=== PATIENT | female | born 1945 | race Caucasian/White ===

== ENCOUNTER → 2016-10-19 | Outpatient (CLI) | payer MEDICARE, MEDICAID ==
[2016-07-07 20:00] VITALS: BP 128/65
[~2016-10-19] MED LIST: ACET325T21 PO; ALPR0.5T6 PO; AMIO200T PO; AMOX1TAB61 PO; APIX5TAB PO; ASPI-482 PO; ASPI325T4 PO; ATOR10TA PO; ATROVENT HFA12.9 GM IH; CAPS42.56 TP; CARV12.52 PO; DILT120C97 PO; DOCU-27 PO; Diltiazem Hcl PO; Doxycycline Hyclate PO; FEBU40TA PO; FLUO40CA2 PO; FLUT1DIS3 IH; FLUT1DIS3 INH; FURO-69 PO; GABA-586 PO; HYDR-963 PO; IRBE75TA3 PO; LEVO250T25 PO; NITR100C62 PO; POTA20TA4 PO; ZOLP5TAB4 PO
[2016-10-19 12:50] LABS: BILIRUBIN,URINE NEGATIVE (NEG); GLUCOSE,URINE NEGATIVE (NEG); NITRITE,URINE NEGATIVE (NEG); PH,URINE 7.5; PROTEIN,URINE NEGATIVE (NEG-TRACE); UROBILINOGEN,URINE 0.2 mg/dL (0.2 mg/dL)
[2016-10-19 13:03] LABS: BACTERIA,URINE FEW /HPF (0-FEW); RBC,URINE 0 /HPF (0-2); SQUAMOUS EPITHELIAL CELL,UR OCC /LPF
== END | disposition home or self-care (01) ==
LOC: SPEC 12:03
PROVIDERS: ATTEND Family Medicine
DX: N39.0 Urinary tract infection, site not specified (principal)
CPT/HCPCS: 81001; 87086; 87186

== ENCOUNTER 2016-11-17 04:44 | Inpatient (IN) | payer MEDICARE, OTHER ==
[~2016-11-17] VITALS: Ht 167.6 cm; Wt 74.9 kg
[2016-11-17] VITALS (16 sets, daily range): BP systolic 85–165; BP diastolic 46–79
[2016-11-17] MEDS ORDERED: IV NORMAL SALINE 1000ML BAG 1,000 ML IV SCH (05:09)
[2016-11-17 05:21] LABS: BASO # 0.2 x10^3/uL (0.0-0.2); BASO % 1 % (0-3); EOS % 0 % (0-3); HEMATOCRIT 41.2 % (36.0-47.0); HEMOGLOBIN 12.9 g/dL (12.0-15.5); LYMPH # 1.2 x10^3/uL (1.0-4.8); LYMPH % 5 % (24-48); MEAN CORPUSCULAR HEMOGLOBIN 26 pg (25-35); MEAN CORPUSCULAR HGB CONC 31 g/dL (31-37); MEAN CORPUSCULAR VOLUME 84 fL (79-100); MONO % 8 % (0-9); NEUT % 86 % (31-73); PLATELET COUNT 278 x10^3/uL (140-400); RED BLOOD COUNT 4.94 x10^6/uL (3.50-5.40); RED CELL DISTRIBUTION WIDTH 16.5 % (11.5-14.5)
--- NOTE | 2016-11-17 05:22 | PHYS DOC ---
Past Medical History Past Medical History: A-Fib, Anemia, Anxiety, Arrhythmia, CAD, CHF, COPD, Dementia, Depression, High Cholesterol, Hypertension Additional Past Medical Histor: acute and chronic resp failure with hypoxia, weakness, pressure ulcer Past Surgical History: Appendectomy, Pacemaker, Other Additional Past Surgical Histo: cardiac stents, pacemaker/defibrillator Alcohol Use: None Drug Use: None Adult General Chief Complaint Chief Complaint: SHORTNESS OF BREATH HPI HPI Patient is a 71 year old female who presents with shortness of breath and productive cough for 2 days. Patient comes to the emergency department from [facility] due to worsening condition. Patient appears lethargic at this time and does not provide history. Patient has multiple comorbidities including CHF, CVA, and COPD. Patient has reported productive cough from long term and has had worsening shortness of breath. Patient had reported oxygen saturation of 91-92% on her normal oxygen settings. Patient denies any pain. Patient was given a DuoNeb breathing treatment by EMS prior to arrival. Review of Systems Review of Systems Unable to obtain from patient due to altered state Current Medications Current Medications Current Medications Medications (Trade) Dose Ordered Sig/Carrie Start Time Stop Time Status Last Admin Dose Admin Sodium Chloride (Iv Sodium Chloride 0.9% 1000ml Bag) 1,000 ml @ 615 mls/hr [id number] 11/17/16 05:09 11/17/16 09:08 11/17/16 05:22 615 MLS/HR Allergies Allergies Allergies Coded Allergies Type Severity Reaction Last Updated Verified NSAIDS (Non-Steroidal Anti-Inflamma Allergy Intermediate 11/06/15 Yes haloperidol Allergy Intermediate 11/06/15 Yes Physical Exam Physical Exam Constitutional: Lethargic, afebrile, appears ill HENT: Normocephalic, atraumatic, bilateral external ears normal, oropharynx dry , no oral exudates, nose normal. [] Eyes: PERRLA, EOMI, conjunctiva normal, no discharge. [] Neck: Normal range of motion, no tenderness, supple, no stridor. [] Cardiovascular: Tachycardia, irregular rhythm, no murmur [] Lungs & Thorax: Mild to moderate shortness of air movement bilaterally, mild expiratory wheezes bilaterally, rales bilaterally [] Abdomen: Bowel sounds normal, soft, no tenderness, no masses, no pulsatile masses. [] Skin: Warm, dry, no erythema, no rash. [] Back: No tenderness, no CVA tenderness. [] Extremities: No tenderness, no cyanosis, no clubbing, ROM intact, trace pitting edema bilaterally. [] Neurologic: Lethargic, oriented to self, normal motor function, normal sensory function, no focal deficits noted. [] Current Patient Data Vital Signs Vital Signs Date Time Temp Pulse Resp B/P Pulse Ox O2 Delivery O2 Flow Rate FiO2 11/17/16 05:05 99.4 118 20 102/67 92 Nasal Cannula 2 99.4 Lab Values Laboratory Tests Test 11/17/16 04:54 11/17/16 05:08 11/17/16 05:25 Influenza Type A Antigen Negative (NEGATIVE) Influenza Type B Antigen Negative (NEGATIVE) White Blood Count 23.0x10^3/uL (4.0-11.0) H Red Blood Count 4.94x10^6/uL (3.50-5.40) Hemoglobin 12.9g/dL (12.0-15.5) Hematocrit 41.2% (36.0-47.0) Mean Corpuscular Volume 84fL (79-100) Mean Corpuscular Hemoglobin 26pg (25-35) Mean Corpuscular Hemoglobin Concent 31g/dL (31-37) Red Cell Distribution Width 16.5% (11.5-14.5) H Platelet Count 278x10^3/uL (140-400) Neutrophils (%) (Auto) 86% (31-73) H Lymphocytes (%) (Auto) 5% (24-48) L Monocytes (%) (Auto) 8% (0-9) Eosinophils (%) (Auto) 0% (0-3) Basophils (%) (Auto) 1% (0-3) Neutrophils # (Auto) 19.9x10^3uL (1.8-7.7) H Lymphocytes # (Auto) 1.2x10^3/uL (1.0-4.8) Monocytes # (Auto) 1.8x10^3/uL (0.0-1.1) H Eosinophils # (Auto) 0.0x10^3/uL (0.0-0.7) Basophils # (Auto) 0.2x10^3/uL (0.0-0.2) Platelet Estimate Pending Sodium Level 145mmol/L (136-145) Potassium Level 6.2mmol/L (3.5-5.1) *H Chloride Level 104mmol/L (98-107) Carbon Dioxide Level 33mmol/L (21-32) H Anion Gap 8 (6-14) Blood Urea Nitrogen 42mg/dL (7-20) H Creatinine 2.3mg/dL (0.6-1.0) H Estimated GFR (Cockcroft-Gault) 20.8 BUN/Creatinine Ratio 18 (6-20) Glucose Level 124mg/dL (70-99) H Lactic Acid Level 1.1mmol/L (0.4-2.0) Calcium Level 8.9mg/dL (8.5-10.1) Total Bilirubin 1.5mg/dL (0.2-1.0) H Aspartate Amino Transferase (AST) 44U/L (15-37) H Alanine Aminotransferase (ALT) 29U/L (14-59) Alkaline Phosphatase 117U/L (46-116) H Troponin I Quantitative 4.627ng/mL (0.000-0.055) Total Protein 6.8g/dL (6.4-8.2) Albumin 3.1g/dL (3.4-5.0) L Albumin/Globulin Ratio 0.8 (1.0-1.7) L Procalcitonin Pending O2 Saturation 91% (92-99) L Arterial Blood pH 7.42 (7.35-7.45) Arterial Blood pH (Temp corrected) 7.41 Arterial Blood pCO2 at Patient Temp 49mmHg (35-46) H Arterial Blood pCO2 (Temp correct) 50mmHg Arterial Blood pO2 at Patient Temp 62mmHg (65-108) L Arterial Blood pO2 (Temp corrected) 64mmHg Arterial Blood HCO3 31mmol/L (21-28) H Arterial Blood Base Excess 5mmol/L (-3-3) H FiO2 32 Laboratory Tests 11/17/16 05:08 Laboratory Tests 11/17/16 05:08 EKG EKG Interpreted by me: Heart rate 130, atrial fibrillation, rapid ventricular rate, no acute ST/T-wave abnormalities present [] Radiology/Procedures Radiology/Procedures One view AP chest x-ray interpreted by me: Left lower lobe infiltrate, possible left-sided pleural effusion, cardiomegaly [] Course & Med Decision Making Course & Med Decision Making Pertinent Labs and Imaging studies reviewed. (See chart for details) Patient was started on IV fluids in the emergency department. Patient required increased supplemental oxygen to help keep her oxygen saturations above 90%. This patient is displaying multi-system organ failure at this time. Prognosis is poor. I spoke with Dr. Mckenzie who is on-call for Dr. Herndon. He agreed with initiation of IV antibiotics and IV fluids. I also consulted Dr. Fuentes of cardiology. He agreed with conservative measures and will see patient this morning in hospital. Patient admitted to ICU. Dragon Disclaimer Dragon Disclaimer This electronic medical record was generated, in whole or in part, using a voice recognition dictation system. Departure Departure Impression: Primary Impression: Sepsis Additional Impressions: Healthcare-associated pneumonia Acute on chronic renal failure Myocardial ischemia Hyperkalemia Mild protein malnutrition Atrial fibrillation with RVR Dehydration Disposition: ADMITTED INPATIENT Admitting Physician: David Herndon Condition: GRAVE Referrals: DAVID HERNDON MD (PCP) Problem Qualifiers Primary Impression: Sepsis Sepsis type: sepsis due to unspecified organism Qualified Code: A41.9 - Sepsis, unspecified organism ZULEIMA JACOB MD Nov 17, 2016 05:22
[2016-11-17 05:31] LABS: FIO2 ABG 32; HCO3 ABG 31 mmol/L (21-28); PCO2 ABG 49 mmHg (35-46); PH ABG 7.42 (7.35-7.45); PO2 ABG 62 mmHg (65-108); SAT O2 ABG 91 % (92-99)
[2016-11-17 05:32] LABS: BODY TEMP ABG 98.6 DEG; CORRECTED PCO2 ABG 50 mmHg; CORRECTED PH ABG 7.41; CORRECTED PO2 ABG 64 mmHg
[2016-11-17 05:45] LABS: ALBUMIN 3.1 g/dL (3.4-5.0); ALBUMIN/GLOBULIN RATIO 0.8 (1.0-1.7); CALCIUM 8.9 mg/dL (8.5-10.1); CREATININE 2.3 mg/dL (0.6-1.0); GFR 20.8; TOTAL BILIRUBIN 1.5 mg/dL (0.2-1.0); TOTAL PROTEIN 6.8 g/dL (6.4-8.2)
[2016-11-17 05:47] LABS: POTASSIUM 6.2 mmol/L (3.5-5.1)
[2016-11-17 05:50] LABS: OBC FLU VALID
[2016-11-17] MEDS: IV NORMAL SALINE 1000ML BAG 1,000 ML IV SCH ×3 (06:12→20:34)
[2016-11-17] MEDS ORDERED: PIP/TAZO PER PHARMACY MC PRN (06:15)
[2016-11-17] MEDS ORDERED: ONDANSETRON PF 4 MG/2 ML VIAL. IV PRN (06:15)
[2016-11-17] MEDS ORDERED: LEVOFLOXACIN PER PHARMACY MC PRN (06:15)
[2016-11-17] MEDS ORDERED: ACETAMINOPHEN 325 MG TABLET. PO PRN (06:15)
[2016-11-17] MEDS ORDERED: VANCOMYCIN PER PHARMACY MC PRN (06:15)
[2016-11-17] MEDS ORDERED: DEXTROSE 50% 25 GM / 50ML DISP.SYRIN. IV ONE (06:30)
[2016-11-17] MEDS ORDERED: SODIUM BICARB ADULT 8.4% 50 MEQ/50 ML DISP.SYRIN. IV ONE (06:30)
[2016-11-17] MEDS ORDERED: PIPERACILLIN/TAZOBACTAM 2.25 GM in IV NORMAL SALINE 50ML 50 ML IV SCH (06:30)
[2016-11-17] MEDS ORDERED: CALCIUM GLUCONATE 1,000 MG/10 ML VIAL IVP ONE (06:30)
[2016-11-17] MEDS ORDERED: SODIUM POLYSTYRENE SULFONATE 15 GM/60 ML ORAL.SUSP. PO ONE (06:30)
[2016-11-17] MEDS ORDERED: INSULIN REGULAR 100 UNIT/ML 10ML VIAL. IV ONE (06:30)
--- NOTE | 2016-11-17 06:44 | EKG ---
[facility] [address] [place] [address] Test Date: 2016-11-17 Test Time: 04:52:37 Pat Name: ZACHERY MAGALLANES Department: Room: Gender: F Manager Ent: : [id number] Requested By: ZULEIMA JACOB Order Number: [id number] Reading MD: Galina Chatman Measurements Intervals [place] Rate: 130 P: UT: QRS: -51 QRSD: 150 T: 116 QT: 336 QTc: 501 Interpretive Statements ATRIAL FIBRILLATION PROLONGED QT INTERVAL ABNORMAL LEFT AXIS DEVIATION NON SPECIFIC INTRAVENTRICULAR BLOCK Electronically Signed On 11-21-2016 19:41:10 [employer]HER [employer] MIXER by Galina Chatman
[2016-11-17] MEDS ORDERED: VANCOMYCIN 2 GM in IV NORMAL SALINE 500ML BAG 500 ML IV ONE (07:00)
[2016-11-17 07:13] LABS: PROCALCITONIN 14.79 ng/mL (0.00-0.10)
--- NOTE | 2016-11-17 07:13 | RAD ---
Portable chest, 11/17/2016: History: Shortness of breath Comparison is made to a study from 09/25/2016. A left-sided transvenous pacing device remains in place with 2 leads extending in the right heart. The heart is enlarged. There is calcific plaquing of the aorta. The pulmonary vascularity is prominent with loss of vascular margination right upper chest. There is a linear scar in the left lower chest. Blunting of the left lateral costophrenic angle is probably due to a prominent epicardial fat pad accentuated by patient rotation, although a small amount of pleural fluid cannot be excluded. No right-sided pleural fluid is evident. IMPRESSION: Cardiomegaly with mild vascular congestion.
--- NOTE | 2016-11-17 07:21 | ACF ---
Admit Criteria Forms Admit Criteria Forms Admit Criteria Forms SEPSIS and OTHER FEBRILE ILLNESS, W/O FOCAL INFECTION Clinical Indications for Admission to Inpatient Care ( Place 'X' for any and all applicable criteria): Admission is indicated for ANY ONE of the following (1)(2)(3)(4): [ ] I. Bacteremia [X]II. Suspected or identified specific infection requiring hospitalization (eg, meningitis, endocarditis) [ ]III. Hemodynamic instability [ ]IV. Altered mental status [ ]V. Failure or unavailability of outpatient antimicrobial treatment [ ]. Hypoxemia [ ]VII. Seizures [ ]VIII. High-risk febrile neutropenia [ ]IX. Need for parenteral antibiotic in patient who is likely to abuse vascular access device (eg, injection drug user) [A](7) [ ]X. Temperature greater than 104.9 degrees F (40.5 degrees C) (oral) [ ]XI. Inpatient admission required rather than observation care because of ANY ONE of the following: [ ]1) Specific infection identified that is too severe for outpatient treatment or observation care trial [ ]2) Metabolic disorder (eg, hypoglycemia, hyperglycemia, metabolic acidosis) that is severe or persistent [ ]3) Temperature greater than 103.1 degrees F (39.5 degrees C) ( oral) that is not responsive to observation care treatment [ ]4) IV fluid to replace significant ongoing (eg, for over 24 hours) losses (> 3 L/m2 per day) [ ]5) Supplemental oxygen or respiratory treatments for over 24 hours that is performable only in acute inpatient setting [ ]6) Parenteral nutrition regimen need that must be implemented on inpatient basis [ ]7) Strict or protective (eg, laminar flow) isolation [ ]8) Other condition, treatment or monitoring requiring inpatient admission Extended stay beyond goal length of stay may be needed for(1)(3) [ ]a) Sepsis or septic shock(22) [ ]b) Positive blood cultures [ ]c) Insufficient oral intake [ ]d) High-risk febrile neutropenia(29)(30) [ ]e) Continued fever and clinical instability [ ]f) Clinically active comorbid illness (e.g,heart failure, renal failure , diabetes) The original [employer] content created by [email or web address] has been revised. The portions of the content which have been revised are identified through the use of italic text or in bold, and [facility] has neither reviewed nor approved the modified material. All other unmodified content is copyright [facility]. Please see references footnoted in the original [facility] edition 2016 CHARISSA ALLISON Nov 17, 2016 07:21
[2016-11-17] MEDS ORDERED: IPRATRPIUM/ALBUTEROL 0.5/2.5MG 3 ML NEBU. NEB SCH (08:00)
--- NOTE | 2016-11-17 08:28 | PDOC ---
Provider Note Provider Note See admission H&P dictation #[id number] Impression: 1. Sepsis due to possible pulmonary infection versus UTI: 2. Acute respiratory failure: 2. Hyperkalemia: 3. Acute renal failure: 4. COPD with probable exacerbation: 5. CHF, acute on chronic: 6. A. fib with RVR: 7. Elevated troponins consistent with probable recent acute [place] KENDRA MANSFIELD MD Nov 17, 2016 08:28
[2016-11-17 08:54] LABS: BILIRUBIN,URINE SMALL (NEG); GLUCOSE,URINE NEGATIVE (NEG); NITRITE,URINE NEGATIVE (NEG); PROTEIN,URINE 100 mg/dL (NEG-TRACE)
[2016-11-17] MEDS: GABAPENTIN 300 MG CAPSULE. PO SCH ×2 (09:00→20:34)
[2016-11-17] MEDS: ASPIRIN ENTERIC COATED 81 MG TABLET.DR. PO SCH (09:00)
[2016-11-17] MEDS: CARVEDILOL 12.5 MG TABLET PO SCH ×2 (09:00→17:00)
[2016-11-17] MEDS: FLUOXETINE HCL 20 MG CAPSULE PO SCH (09:00)
[2016-11-17] MEDS: AMIODARONE HCL 200 MG TABLET PO SCH (09:00)
[2016-11-17] MEDS ORDERED: NON FORMULARY ITEM (Fluticasone/Salmeterol (Advair 250-50 Diskus) 1 INH) IH SCH (09:00)
[2016-11-17] MEDS ORDERED: APIXABAN 5 MG TABLET. PO SCH (09:00)
[2016-11-17] MEDS ORDERED: NON FORMULARY ITEM (Fluoxetine Hcl 40 MG) PO SCH (09:00)
[2016-11-17] MEDS: BUDESONIDE 0.5 MG/2 ML NEBU NEB SCH ×2 (09:10→20:15)
[2016-11-17 09:20] LABS: BACTERIA,URINE MODERATE /HPF (0-FEW); SQUAMOUS EPITHELIAL CELL,UR OCC /LPF; WBC,URINE >40 /HPF (0-4)
[2016-11-17] MEDS ORDERED: MAGNESIUM SULFATE 2GM 50 ML IV PRN (09:30)
--- NOTE | 2016-11-17 09:30 | PDOC2 ---
CONSULT Date of Consult Date of Consult DATE: 11/17/16 TIME: 09:23 Reason for Consult Reason for Consult: Panchito/ CKD III Referring Physician Referring Physician: Dr franklin Identification/Chief Complaint Chief Complaint AMS, UTI Problems: Source Source: Chart review, Patient History of Present Illness Reason for Visit: as dictated Past Medical History Cardiovascular: CAD, CHF, HTN, Hyperlipidemia Pulmonary: COPD CENTRAL NERVOUS SYSTEM: Other GI: Other Psych: Depression Musculoskeletal: Osteoarthritis Infectious disease: No pertinent hx, Other Renal/: No pertinent hx Endocrine: No pertinent hx Past Surgical History Past Surgical History: Appendectomy, Cholecystectomy, Other Family History Family History: Coronary Artery Disease Social History ALCOHOL: none Drugs: None Lives: with Family Domestic Violence: Neg Current Problem List Problem List Problems Medical Problems: (1) Acute on chronic renal failure Status: Acute (2) Atrial fibrillation with RVR Status: Acute (3) Dehydration Status: Acute (4) Healthcare-associated pneumonia Status: Acute (5) Hyperkalemia Status: Acute (6) Mild protein malnutrition Status: Acute (7) Myocardial ischemia Status: Acute (8) Sepsis Status: Acute Current Medications Current Medications Current Medications Sodium Chloride (Iv Sodium Chloride 0.9% 1000ml Bag) 1,000 ml @ 615 mls/hr Q1H38M IV Last administered on 11/17/16 05:22; Start 11/17/16 at 05:09; Stop 11/17/16 at 09:08; Status DC Calcium Gluconate 1,000 mg 1X ONCE IVP Last administered on 11/17/16 06:55; Start 11/17/16 at 06:30; Stop 11/17/16 at 06:31; Status DC Sodium Bicarbonate 50 meq 1X ONCE IV Last administered on 11/17/16 06:56; Start 11/17/16 at 06:30; Stop 11/17/16 at 06:31; Status DC Dextrose 25 gm 1X ONCE IV Last administered on 11/17/16 06:58; Start at 06:30; Stop 11/17/16 at 06:31; Status DC Insulin Human Regular (Novolin R Vial) 10 unit 1X ONCE IV Last administered on 11/17/16 06:57; Start 11/17/16 at 06:30; Stop 11/17/16 at 06:31; Status DC Sodium Polystyrene Sulfonate (Kayexalate) 30 gm 1X ONCE PO Last administered on 11/17/16 06:58; Start 11/17/16 at 06:30; Stop 11/17/16 at 06:31; Status DC Ondansetron HCl 4 mg 4 mg PRN Q8HRS PRN IV NAUSEA/VOMITING; Start 11/17/16 at 06:15; Stop 11/18/16 at 06:14 Sodium Chloride (Iv Sodium Chloride 0.9% 1000ml Bag) 1,000 ml @ 125 mls/hr Q8H IV ; Start 11/17/16 at 06:12; Stop 11/18/16 at 06:11 Acetaminophen (Tylenol) 650 mg PRN Q4HRS PRN PO FEVER; Start 11/17/16 at 06:15 ; Stop 11/17/16 at 08:35; Status DC Albuterol/ Ipratropium (Duoneb) 3 ml RTQID NEB ; Start 11/17/16 at 08:00; Stop 11/17/16 at 08:33; Status DC Vancomycin HCl (Vanco Per Pharmacy) 1 each PRN DAILY PRN MC SEE COMMENTS; Start 11/17/16 at 06:15 Levofloxacin/ Dextrose (Levaquin Per Pharmacy) 1 each PRN DAILY PRN MC SEE COMMENTS; Start 11/17/16 at 06:15 Piperacillin Sod/ Tazobactam Sod 1 each 1 each PRN DAILY PRN MC SEE COMMENTS; Start 11/17/16 at 06:15 Vancomycin HCl 2 gm/Sodium Chloride 500 ml @ 250 mls/hr 1X ONCE IV Last administered on 11/17/16 07:52; Start 11/17/16 at 07:00; Stop 11/17/16 at 09:04 ; Status DC Piperacillin Sod/ Tazobactam Sod 2.25 gm/Sodium Chloride 50 ml @ 100 mls/hr Q6HRS IV Last administered on 11/17/16 07:04; Start 11/17/16 at 06:30 Levofloxacin/ Dextrose (LEVAQUIN 750mg PREMIX) 150 ml @ 100 mls/hr Q48H IV ; Start 11/17/16 at 07:00 Furosemide (Lasix) 40 mg DAILY IVP ; Start 11/17/16 at 09:00 Albuterol/ Ipratropium (Duoneb) 3 ml RTQID NEB ; Start 11/17/16 at 12:00 Albuterol Sulfate (Ventolin Neb Soln) 2.5 mg PRN Q4HRS PRN NEB SHORTNESS OF BREATH; Start 11/17/16 at 08:30 Acetaminophen (Tylenol) 650 mg PRN Q6HRS PRN PO PAIN; Start 11/17/16 at 08:30 Amiodarone HCl (Cordarone) 200 mg DAILY PO ; Start 11/17/16 at 09:00 Apixaban (Eliquis) 5 mg BID PO ; Start 11/17/16 at 09:00 Aspirin (Ecotrin) 81 mg DAILY08 PO ; Start 11/17/16 at 09:00 Carvedilol (Coreg) 12.5 mg BIDWMEALS PO ; Start 11/17/16 at 09:00 Gabapentin (Neurontin) 300 mg BID PO ; Start 11/17/16 at 09:00 Zolpidem Tartrate (Ambien) 5 mg PRN QHS PRN PO INSOMNIA; Start 11/17/16 at 08: 30 Non-Formulary Medication 40 mg DAILY PO ; Start 11/17/16 at 09:00; Stop at 09:00; Status DC Non-Formulary Medication 1 inh BID IH ; Start 11/17/16 at 09:00; Stop 11/17/16 at 09:00; Status DC Fluoxetine HCl (Prozac) 40 mg DAILY PO ; Start 11/17/16 at 09:00 Info (Anti-Coagulation Monitoring By Pharmacy) 1 each PRN DAILY PRN MC SEE COMMENTS; Start 11/17/16 at 08:45 Budesonide 0.5 mg 0.5 mg RTBID NEB Last administered on 11/17/16t 09:10; Start 11/17/16 at 09:00 Vancomycin HCl/ Sodium Chloride (Iv Sodium Chloride 0.9% 250ml) 250 ml @ 167 mls/hr Q24H IV ; Start 11/18/16 at 08:00 Vancomycin HCl 1 each 1X ONCE MC ; Start 11/19/16 at 07:30; Stop 11/19/16 at 07 :31 Active Scripts Active Macrobid 100 Mg Capsule (Nitrofurantoin Monohyd/M-Cryst) 100 Mg Capsule 1 Cap PO BID Klor-Con M20 (Potassium Chloride) 20 Meq Tablet.er 20 Meq PO DAILYWBKFT Uloric (Febuxostat) 40 Mg Tablet 40 Mg PO DAILY Colace (Docusate Sodium) 100 Mg Capsule 100 Mg PO DAILY Eliquis (Apixaban) 5 Mg Tablet 5 Mg PO BID Cordarone (Amiodarone Hcl) 200 Mg Tablet 200 Mg PO DAILY Reported Acetaminophen 325 Mg Tablet 650 Mg PO PRN Q6HRS PRN [place] 10-325 Tablet (Acetaminophen/Hydrocodone Bitart) 1 Each Tablet 1 Tab PO PRN Q6HRS PRN Gabapentin 300 Mg Capsule 300 Mg PO BID Diltiazem 24HR Cd (Diltiazem Hcl) 120 Mg Cap.er.24h 120 Mg PO DAILY Zolpidem Tartrate 5 Mg Tablet 5 Mg PO PRN QHS PRN Alprazolam 0.5 Mg Tablet 0.5 Mg PO PRN Q8HRS PRN Advair 250-50 Diskus (Fluticasone/Salmeterol) 1 Each Disk.w.dev 1 Inh IH BID Capzasin-Hp (Capsaicin) 42.5 Gm Cream..g. 1 Terence TP Q8HRS Aspir 81 (Aspirin) 81 Mg Tablet.dr 81 Mg PO DAILY08 Irbesartan 75 Mg Tablet 75 Mg PO DAILY Lasix (Furosemide) 20 Mg Tablet 20 Mg PO BID Carvedilol 12.5 Mg Tablet 12.5 Mg PO BIDWMEALS Fluoxetine Hcl 40 Mg Capsule 40 Mg PO DAILY Atrovent Hfa (Ipratropium [place]) 12.9 Gm Hfa.aer.ad 2 Puff IH QID Allergies Allergies: Coded Allergies: NSAIDS (Non-Steroidal Anti-Inflamma (Verified Allergy, Intermediate, ) haloperidol (Verified Allergy, Intermediate, 11/06/15) ROS Review of System Not realiably available GEN: no Fevers no Chills EYES: no Visual Complaints ENT: no EN Drainage no Hearing deficiets CVS: no Orthopnea no CP RESP: no SOB no FRANKLIN GI: no Nausea no Vomiting : no Dysuria no Urgency HEME: no easy bruising no Palp Ly Nodes NEURO no Focal Weakness no Sz PSYCH: no Suicidal Ideation no Depression SKIN: no Rashes ENDO: no Polyuria or Polydipsia no Hot/Cold Intolerance MU SK: ? Arthralgia no Myalgia Physical Exam Physical Exam General Appearance: Awake not fully Alert Oriented x 0-1 In no Distress Eyes: Pupils reactive overall Sclera and Conjunctiva Normal EN: No EN Drainage Mucous Memb. dryish Neck: no JVD min JVP Supple no Thyromegaly CVS: S1 S2 sys Murmur No Gallop No Rub Tr Edema Resp: no Rales no Rhonchi no Acc. Muscle use GI: BS + ve NO Bruit Minn Tender Non Distended Ostomy bag in palce : no CVA tenderness; no Suprapubic Tenderness SKIN: no Rashes Breast Exam deferred Mu.Sk: adequate Passive ROM min Muscle Atrophy Heme: Unable to palpate Obvious LAD no palp Splenomegaly NEURO: Moves all 4 ext but does not follow commands Psych: ? somewhat Depressed at bsaeline no Active hallucination ASSESSMENT/PLAN PANCHITO/ ATN: vs pyelonephritis. Current FLuid and E-lyte status does not necessitate emergent need for Dialysis. Will re-evaluate for Dialysis in am unless todays labs (just sent) necessitate Cmypoathy - watch with IVF as being administered ? Sepsis due to UTI - IVF given per Sepsis Protocol ? Some CKD III as noted per previous trend Possible UTI with Hematiruai - await Cx, Abx per Primary team; was on Macrobid as OP; Abx per priamry team; hematuria - suspect due to Cysttis but will recheck renal US due to Previous Renal Cyst Renal Cyst - US as ordered Proteinuria - suspect due to UTI - will need f/up as OP ^K - was on KCl as OP - recehck after temporizing measures; Await Labs and will decide if HD will be reqd; Rxed with temporzing measures HTN: Current BP meds reviewed. See orders for changes. Vital Signs Vital Signs Date Time Temp Pulse Resp B/P Pulse Ox O2 Delivery O2 Flow Rate FiO2 11/17/16 09:19 96 Nasal Cannula 3.0 11/17/16 07:50 90 18 101/57 11/17/16 05:05 99.4 99.4 Labs Labs Laboratory Tests Test 11/17/16 04:54 11/17/16 05:08 11/17/16 05:25 11/17/16 06:30 Influenza Type A Antigen Negative (NEGATIVE) Influenza Type B Antigen Negative (NEGATIVE) White Blood Count 23.0x10^3/uL (4.0-11.0) Red Blood Count 4.94x10^6/uL (3.50-5.40) Hemoglobin 12.9g/dL (12.0-15.5) Hematocrit 41.2% (36.0-47.0) Mean Corpuscular Volume 84fL (79-100) Mean Corpuscular Hemoglobin 26pg (25-35) Mean Corpuscular Hemoglobin Concent 31g/dL (31-37) Red Cell Distribution Width 16.5% (11.5-14.5) Platelet Count 278x10^3/uL (140-400) Neutrophils (%) (Auto) 86% (31-73) Lymphocytes (%) (Auto) 5% (24-48) Monocytes (%) (Auto) 8% (0-9) Eosinophils (%) (Auto) 0% (0-3) Basophils (%) (Auto) 1% (0-3) Neutrophils # (Auto) 19.9x10^3uL (1.8-7.7) Lymphocytes # (Auto) 1.2x10^3/uL (1.0-4.8) Monocytes # (Auto) 1.8x10^3/uL (0.0-1.1) Eosinophils # (Auto) 0.0x10^3/uL (0.0-0.7) Basophils # (Auto) 0.2x10^3/uL (0.0-0.2) Sodium Level 145mmol/L (136-145) Potassium Level 6.2mmol/L (3.5-5.1) Chloride Level 104mmol/L (98-107) Carbon Dioxide Level 33mmol/L (21-32) Anion Gap 8 (6-14) Blood Urea Nitrogen 42mg/dL (7-20) Creatinine 2.3mg/dL (0.6-1.0) Estimated GFR (Cockcroft-Gault) 20.8 BUN/Creatinine Ratio 18 (6-20) Glucose Level 124mg/dL (70-99) Lactic Acid Level 1.1mmol/L (0.4-2.0) Calcium Level 8.9mg/dL (8.5-10.1) Total Bilirubin 1.5mg/dL (0.2-1.0) Aspartate Amino Transf (AST/SGOT) 44U/L (15-37) Alanine Aminotransferase (ALT/SGPT) 29U/L (14-59) Alkaline Phosphatase 117U/L (46-116) Troponin I Quantitative 4.627ng/mL (0.000-0.055) Total Protein 6.8g/dL (6.4-8.2) Albumin 3.1g/dL (3.4-5.0) Albumin/Globulin Ratio 0.8 (1.0-1.7) Procalcitonin 14.79ng/mL (0.00-0.10) O2 Saturation 91% (92-99) Arterial Blood pH 7.42 (7.35-7.45) Arterial Blood pH (Temp corrected) 7.41 Arterial Blood pCO2 at Patient Temp 49mmHg (35-46) Arterial Blood pCO2 (Temp correct) 50mmHg Arterial Blood pO2 at Patient Temp 62mmHg (65-108) Arterial Blood pO2 (Temp corrected) 64mmHg Arterial Blood HCO3 31mmol/L (21-28) Arterial Blood Base Excess 5mmol/L (-3-3) FiO2 32 Urine Collection Type Unknown Urine Color Claire Urine Clarity Cloudy Urine pH 6.0 Urine Specific [place] 1.020 Urine Protein 100mg/dL (NEG-TRACE) Urine Glucose (UA) Negativemg/dL (NEG) Urine Ketones (Stick) Tracemg/dL (NEG) Urine Blood Moderate (NEG) Urine Nitrite Negative (NEG) Urine Bilirubin Small (NEG) Urine Urobilinogen Dipstick 1.0mg/dL (0.2 mg/dL) Urine Leukocyte Esterase Large (NEG) Urine RBC 1-2/HPF (0-2) Urine WBC >40/HPF (0-4) Urine Squamous Epithelial Cells Occ/LPF Urine Bacteria Moderate/HPF (0-FEW) Urine Hyaline Casts Few/HPF Test 11/17/16 07:26 Lactic Acid Level 1.7mmol/L (0.4-2.0) Laboratory Tests Test 11/17/16 04:54 11/17/16 05:08 11/17/16 05:25 11/17/16 06:30 Influenza Type A Antigen Negative (NEGATIVE) Influenza Type B Antigen Negative (NEGATIVE) White Blood Count 23.0x10^3/uL (4.0-11.0) Red Blood Count 4.94x10^6/uL (3.50-5.40) Hemoglobin 12.9g/dL (12.0-15.5) Hematocrit 41.2% (36.0-47.0) Mean Corpuscular Volume 84fL (79-100) Mean Corpuscular Hemoglobin 26pg (25-35) Mean Corpuscular Hemoglobin Concent 31g/dL (31-37) Red Cell Distribution Width 16.5% (11.5-14.5) Platelet Count 278x10^3/uL (140-400) Neutrophils (%) (Auto) 86% (31-73) Lymphocytes (%) (Auto) 5% (24-48) Monocytes (%) (Auto) 8% (0-9) Eosinophils (%) (Auto) 0% (0-3) Basophils (%) (Auto) 1% (0-3) Neutrophils # (Auto) 19.9x10^3uL (1.8-7.7) Lymphocytes # (Auto) 1.2x10^3/uL (1.0-4.8) Monocytes # (Auto) 1.8x10^3/uL (0.0-1.1) Eosinophils # (Auto) 0.0x10^3/uL (0.0-0.7) Basophils # (Auto) 0.2x10^3/uL (0.0-0.2) Sodium Level 145mmol/L (136-145) Potassium Level 6.2mmol/L (3.5-5.1) Chloride Level 104mmol/L (98-107) Carbon Dioxide Level 33mmol/L (21-32) Anion Gap 8 (6-14) Blood Urea Nitrogen 42mg/dL (7-20) Creatinine 2.3mg/dL (0.6-1.0) Estimated GFR (Cockcroft-Gault) 20.8 BUN/Creatinine Ratio 18 (6-20) Glucose Level 124mg/dL (70-99) Lactic Acid Level 1.1mmol/L (0.4-2.0) Calcium Level 8.9mg/dL (8.5-10.1) Total Bilirubin 1.5mg/dL (0.2-1.0) Aspartate Amino Transf (AST/SGOT) 44U/L (15-37) Alanine Aminotransferase (ALT/SGPT) 29U/L (14-59) Alkaline Phosphatase 117U/L (46-116) Troponin I Quantitative 4.627ng/mL (0.000-0.055) Total Protein 6.8g/dL (6.4-8.2) Albumin 3.1g/dL (3.4-5.0) Albumin/Globulin Ratio 0.8 (1.0-1.7) Procalcitonin 14.79ng/mL (0.00-0.10) O2 Saturation 91% (92-99) Arterial Blood pH 7.42 (7.35-7.45) Arterial Blood pH (Temp corrected) 7.41 Arterial Blood pCO2 at Patient Temp 49mmHg (35-46) Arterial Blood pCO2 (Temp correct) 50mmHg Arterial Blood pO2 at Patient Temp 62mmHg (65-108) Arterial Blood pO2 (Temp corrected) 64mmHg Arterial Blood HCO3 31mmol/L (21-28) Arterial Blood Base Excess 5mmol/L (-3-3) FiO2 32 Urine Collection Type Unknown Urine Color Claire Urine Clarity Cloudy Urine pH 6.0 Urine Specific [place] 1.020 Urine Protein 100mg/dL (NEG-TRACE) Urine Glucose (UA) Negativemg/dL (NEG) Urine Ketones (Stick) Tracemg/dL (NEG) Urine Blood Moderate (NEG) Urine Nitrite Negative (NEG) Urine Bilirubin Small (NEG) Urine Urobilinogen Dipstick 1.0mg/dL (0.2 mg/dL) Urine Leukocyte Esterase Large (NEG) Urine RBC 1-2/HPF (0-2) Urine WBC >40/HPF (0-4) Urine Squamous Epithelial Cells Occ/LPF Urine Bacteria Moderate/HPF (0-FEW) Urine Hyaline Casts Few/HPF Test 11/17/16 07:26 Lactic Acid Level 1.7mmol/L (0.4-2.0) Images Images Portable chest, 11/17/2016: History: Shortness of breath Comparison is made to a study from 09/25/2016. A left-sided transvenous pacing device remains in place with 2 leads extending in the right heart. The heart is enlarged. There is calcific plaquing of the aorta. The pulmonary vascularity is prominent with loss of vascular margination right upper chest. There is a linear scar in the left lower chest. Blunting of the left lateral costophrenic angle is probably due to a prominent epicardial fat pad accentuated by patient rotation, although a small amount of pleural fluid cannot be excluded. No right-sided pleural fluid is evident. IMPRESSION: Cardiomegaly with mild vascular congestion. DORETHA KASPER MD Nov 17, 2016 09:30
--- NOTE | 2016-11-17 11:16 | PDOC ---
Infectious Disease Note ROS ROS GEN: Denies fevers, chills, sweats HEENT: Denies blurred vision, sore throat CV: Denies chest pain RESP: Denies shortness of air, cough GI: Denies n/v/d NEURO: Denies confusion, dizziness MSK: Denies weakness, joint pain/swelling Vital Sign Vital Signs Vital Signs Date Time Temp Pulse Resp B/P Pulse Ox O2 Delivery O2 Flow Rate FiO2 11/17/16 10:00 97 23 104/66 98 Nasal Cannula 3.0 11/17/16 05:05 99.4 99.4 Physical Exam PHYSICAL EXAM GENERAL: NAD, Alert HEENT: PERRL, OC/OP NECK: Supple, no JVD, no LN LUNGS: Clear HEART: S1S2, no gallop, no murmur ABD: Soft, NT, no organomegaly, no rebound EXT: No edema, no cyanosis PLATE GLASS GRINDER: Alert, oriented x 3, no focal neurologic deficit SKIN: No rash IV: ok Labs Lab Laboratory Tests Test 11/17/16 04:54 11/17/16 05:08 11/17/16 05:25 11/17/16 06:30 Influenza Type A Antigen Negative (NEGATIVE) Influenza Type B Antigen Negative (NEGATIVE) White Blood Count 23.0x10^3/uL (4.0-11.0) Red Blood Count 4.94x10^6/uL (3.50-5.40) Hemoglobin 12.9g/dL (12.0-15.5) Hematocrit 41.2% (36.0-47.0) Mean Corpuscular Volume 84fL (79-100) Mean Corpuscular Hemoglobin 26pg (25-35) Mean Corpuscular Hemoglobin Concent 31g/dL (31-37) Red Cell Distribution Width 16.5% (11.5-14.5) Platelet Count 278x10^3/uL (140-400) Neutrophils (%) (Auto) 86% (31-73) Lymphocytes (%) (Auto) 5% (24-48) Monocytes (%) (Auto) 8% (0-9) Eosinophils (%) (Auto) 0% (0-3) Basophils (%) (Auto) 1% (0-3) Neutrophils # (Auto) 19.9x10^3uL (1.8-7.7) Lymphocytes # (Auto) 1.2x10^3/uL (1.0-4.8) Monocytes # (Auto) 1.8x10^3/uL (0.0-1.1) Eosinophils # (Auto) 0.0x10^3/uL (0.0-0.7) Basophils # (Auto) 0.2x10^3/uL (0.0-0.2) Sodium Level 145mmol/L (136-145) Potassium Level 6.2mmol/L (3.5-5.1) Chloride Level 104mmol/L (98-107) Carbon Dioxide Level 33mmol/L (21-32) Anion Gap 8 (6-14) Blood Urea Nitrogen 42mg/dL (7-20) Creatinine 2.3mg/dL (0.6-1.0) Estimated GFR (Cockcroft-Gault) 20.8 BUN/Creatinine Ratio 18 (6-20) Glucose Level 124mg/dL (70-99) Lactic Acid Level 1.1mmol/L (0.4-2.0) Calcium Level 8.9mg/dL (8.5-10.1) Total Bilirubin 1.5mg/dL (0.2-1.0) Aspartate Amino Transf (AST/SGOT) 44U/L (15-37) Alanine Aminotransferase (ALT/SGPT) 29U/L (14-59) Alkaline Phosphatase 117U/L (46-116) Troponin I Quantitative 4.627ng/mL (0.000-0.055) Total Protein 6.8g/dL (6.4-8.2) Albumin 3.1g/dL (3.4-5.0) Albumin/Globulin Ratio 0.8 (1.0-1.7) Procalcitonin 14.79ng/mL (0.00-0.10) O2 Saturation 91% (92-99) Arterial Blood pH 7.42 (7.35-7.45) Arterial Blood pH (Temp corrected) 7.41 Arterial Blood pCO2 at Patient Temp 49mmHg (35-46) Arterial Blood pCO2 (Temp correct) 50mmHg Arterial Blood pO2 at Patient Temp 62mmHg (65-108) Arterial Blood pO2 (Temp corrected) 64mmHg Arterial Blood HCO3 31mmol/L (21-28) Arterial Blood Base Excess 5mmol/L (-3-3) FiO2 32 Urine Collection Type Unknown Urine Color Claire Urine Clarity Cloudy Urine pH 6.0 Urine Specific [place] 1.020 Urine Protein 100mg/dL (NEG-TRACE) Urine Glucose (UA) Negativemg/dL (NEG) Urine Ketones (Stick) Tracemg/dL (NEG) Urine Blood Moderate (NEG) Urine Nitrite Negative (NEG) Urine Bilirubin Small (NEG) Urine Urobilinogen Dipstick 1.0mg/dL (0.2 mg/dL) Urine Leukocyte Esterase Large (NEG) Urine RBC 1-2/HPF (0-2) Urine WBC >40/HPF (0-4) Urine Squamous Epithelial Cells Occ/LPF Urine Bacteria Moderate/HPF (0-FEW) Urine Hyaline Casts Few/HPF Test 11/17/16 07:26 Lactic Acid Level 1.7mmol/L (0.4-2.0) Objective Assessment Sepsis - POA 11/17 Leukocytosis Acute Encephalopathy PANCHITO UTI -POA Afib Hyperkalemia Plan Plan of Care Reviewed previous records Will Change to Meropenem and Zyvox given previous resistance F/u labs and cults Critically ill Reviewed [facility] records 35 mins # [id number] HIPOLITO GARCIA MD Nov 17, 2016 11:16
--- NOTE | 2016-11-17 11:28 | PDOC ---
Provider Note Provider Note DICTATED URO SEPSIS AECOPD BRIDGETTE CORONADO MD Nov 17, 2016 11:28
[2016-11-17] MEDS ORDERED: MEXI200C PO (11:32)
[2016-11-17] MEDS: MEXILETINE HCL 200 MG CAPSULE PO SCH ×2 (11:46→21:36)
--- NOTE | 2016-11-17 11:51 | CONS ---
DATE OF CONSULTATION: 11/17/2016 ATTENDING PHYSICIAN: Dr. David Herndon. REASON FOR CONSULTATION: Sepsis. HISTORY OF PRESENT ILLNESS: The patient is a 71-year-old female who is known to us from her previous admission. She has chronic obstructive airway disease and chronic respiratory failure. The patient has multiple comorbidities including history of CHF, CVA as well. She was brought into the hospital from [facility] with complaint of shortness of breath and also a cough of 2 days. I have reviewed chest x-ray. There is volume loss in the left lower lobe and some prominent pulmonary arteries. It does not appear to be changed much from the film from few months ago. She has evidence of urinary tract infection. The patient was started on broad-spectrum antibiotics. She did respond to fluid boluses. However, just 5 minutes ago, her heart rate went up in the high 40s and I have ordered to give another fluid bolus. She is lethargic. Her arterial blood gases, however, show full compensation. The pH was 7.42, pCO2 of 49, and pO2 of 62 on 32% FIO2. She does not answer much questions. She is a DNR/DNI. PAST MEDICAL HISTORY: History of AFib, history of anemia, history of anxiety, arrhythmias, COPD, CAD, CHF, chronic respiratory failure, dementia. PAST SURGICAL HISTORY: Appendectomy, pacemaker, and cardiac stents and defibrillator. REVIEW OF SYSTEMS: Unable to obtain from the patient. ALLERGIES: NONSTEROIDALS. MEDICATIONS: Reviewed as listed in the MRAD including broad-spectrum antibiotics and amiodarone as well. PHYSICAL EXAMINATION: GENERAL: She is lethargic. VITAL SIGNS: Blood pressure 104/66, pulse is in the 140s, sinus, pulse ox 98% on 3 liters. NECK: Supple. LUNGS: Bilateral faint wheezing. CARDIOVASCULAR: Regular rate and rhythm. ABDOMEN: Soft, nontender. EXTREMITIES: Trace pitting edema. LABORATORY DATA: Reviewed. ABGs as discussed in my history of present illness. Potassium 6.2, BUN 42, and creatinine 2.3. Troponin is 4.6. Procalcitonin is 14.7. Lactic acid was 1.1 and now 1.7. IMPRESSION: 1. Acute on chronic respiratory failure secondary to multifactorial etiologies including sepsis and underlying chronic obstructive pulmonary disease with exacerbation. Clinically less likely congestive heart failure, but cannot be ruled out and we will follow chest x-ray in the next 24 hours. 2. Increased troponin. Suspect non-ST myocardial infarction. 3. Urinary tract infection with sepsis. 4. Acute on chronic renal failure. 5. Hyperkalemia. 6. Mild protein calorie malnutrition. 7. Influenza is negative. 8. Abnormal chest x-ray with volume loss in the left lower lobe, which appears to be chronic. RECOMMENDATIONS: 1. Continue with present oxygen. 2. Bronchodilators with DuoNeb. 3. Add steroids if wheezing does not improve. 4. Continue broad-spectrum antibiotic. 5. Follow urine cultures. 6. Volume challenge to see an improvement in heart rate. 7. Follow chest x-ray. 8. The patient is DNR/DNI. Discussed with Dr. Rivers. I have discussed with RN and RT. We will follow along with you. Critical care time 39 minutes. BRIDGETTE CORONADO MD DR: LYLE/edelmira JOB#: [id number] / [id number]
[2016-11-17] MEDS: DILTIAZEM 125 MG in IV DEXTROSE 5% 100 ML IV PRN ×2 (11:52→19:39)
[2016-11-17 12:23] LABS: ANISOCYTOSIS SLIGHT; PLT ESTIMATE ADEQUATE (ADEQUATE)
[2016-11-17 12:24] LABS: OVALOCYTES OCC; STOMATOCYTES MOD
[2016-11-17] MEDS ORDERED: DIGOXIN 500 MCG/2 ML AMPUL. IV ONE (12:30)
--- NOTE | 2016-11-17 12:32 | PDOC2 ---
CARDIAC CONSULT DATE OF CONSULT Date of Consult DATE: 11/17/16 TIME: 12:30 REASON FOR CONSULT Reason for Consult: Elevated troponin AFIB with RVR REFERRING PHYSICIAN Referring Physician: Dr. Noyola SOURCE Source: Chart review HISTORY OF PRESENT ILLNESS HISTORY OF PRESENT ILLNESS This is a 71 yo female, with a history of PAFIB, ischemic cardiomyopathy, systolic CHF, CAD s/p PCI to RCA, LAD, and LCX, HTN, COPD, HLP, and dementia, who presented from [facility] with complaints of shortness of breath and cough. HPI obtain from chart review as patient is lethargic and unable to provide information. PAST MEDICAL HISTORY Cardiovascular: AFIB, CAD (s/p PCI/stenting of RCA, LAD, and LCx), CHF, HTN, Hyperlipidemia, Other (ventricular arrhythmias) Pulmonary: COPD, Other (resp. failure ) CENTRAL NERVOUS SYSTEM: Dementia Heme/Onc: Anemia NOS Psych: Anxiety, Depression Musculoskeletal: Osteoarthritis Rheumatologic: No pertinent hx Infectious disease: No pertinent hx ENT: No pertinent hx Renal/: Chronic renal insuff Endocrine: Diabetes Dermatology: No pertinent hx PAST SURGICAL HISTORY Past Surgical History: Pacemaker (ICD), Appendectomy, Cholecystectomy, Other ( PCI with stent placement ) SOCIAL HISTORY Smoke: No ALCOHOL: none Drugs: None Lives: Alf ([facility] ) CURRENT MEDICATIONS CURRENT MEDICATIONS Current Medications Medications (Trade) Dose Ordered Sig/Carrie Route PRN Reason Start Time Stop Time Status Last Admin Dose Admin Sodium Chloride (Iv Sodium Chloride 0.9% 1000ml Bag) 1,000 ml @ 615 mls/hr Q1H38M IV 11/17/16 05:09 11/17/16 09:08 DC 11/17/16 05:22 Calcium Gluconate 1,000 mg 1X ONCE IVP 11/17/16 06:30 11/17/16 06:31 DC 11/17/16 06:55 Sodium Bicarbonate 50 meq 1X ONCE IV 11/17/16 06:30 11/17/16 06:31 DC 11/17/16 06:56 Dextrose 25 gm 1X ONCE IV 11/17/16 06:30 11/17/16 06:31 DC 11/17/16 06:58 Insulin Human Regular (Novolin R Vial) 10 unit 1X ONCE IV 11/17/16 06:30 11/17/16 06:31 DC 11/17/16 06:57 Sodium Polystyrene Sulfonate 30 gm 30 gm 1X ONCE PO 11/17/16 06:30 11/17/16 06:31 DC 11/17/16 06:58 Sodium Chloride (Iv Sodium Chloride 0.9% 1000ml Bag) 1,000 ml @ 125 mls/hr Q8H IV 11/17/16 06:12 11/18/16 06:11 11/17/16 06:12 Vancomycin HCl 1 each 1 each PRN DAILY PRN MC SEE COMMENTS 11/17/16 06:15 11/17/16 10:38 DC 11/17/16 09:32 Vancomycin HCl 2 gm/Sodium Chloride 500 ml @ 250 mls/hr 1X ONCE IV 11/17/16 07:00 11/17/16 09:04 DC 11/17/16 07:52 Piperacillin Sod/ Tazobactam Sod/ Sodium Chloride (Zosyn/Iv Sodium Chloride 0.9% 50ml) 50 ml @ 100 mls/hr Q6HRS IV 11/17/16 06:30 11/17/16 10:38 DC 11/17/16 07:04 Budesonide 0.5 mg 0.5 mg RTBID NEB 11/17/16 09:00 11/17/16 09:10 Diltiazem HCl/ Dextrose (Cardizem) 125 ml @ 0 mls/hr CONT PRN IV SEE I/O RECORD 11/17/16 11:15 11/17/16 11:52 Mexiletine HCl (Mexitil) 200 mg Q8HRS PO 11/17/16 12:00 11/17/16 11:46 ALLERGIES ALLERGIES: Coded Allergies: NSAIDS (Non-Steroidal Anti-Inflamma (Verified Allergy, Intermediate, ) haloperidol (Verified Allergy, Intermediate, 11/06/15) ROS Review of System unobtainable PHYSICAL EXAM General: mild distress, Other (lethargic ) HEENT: Atraumatic, Mucous membr. moist/pink Lungs: Other (diminished bases, expiratory wheezes. coarse throughout) Heart: Normal S1, Normal S2, Other (tele: IRRR. AFIB rate 140) Abdomen: Soft, No tenderness Extremities: Normal pulses, Other (1+ bilateral upper ext edema ) Skin: No breakdown, No significant lesion Neuro: Sensation intact Psych/Mental Status: Other (confused ) MUSCULOSKELETAL: Osteoarthritic changes both hands VITALS VITALS Vital Signs Date Time Temp Pulse Resp B/P Pulse Ox O2 Delivery O2 Flow Rate FiO2 11/17/16 12:00 Nasal Cannula 3.0 11/17/16 11:00 156 36 138/79 93 11/17/16 08:30 98.9 98.9 LABS Lab: Laboratory Tests Test 11/17/16 04:54 11/17/16 05:08 11/17/16 05:25 11/17/16 06:30 Influenza Type A Antigen Negative (NEGATIVE) Influenza Type B Antigen Negative (NEGATIVE) White Blood Count 23.0x10^3/uL (4.0-11.0) Red Blood Count 4.94x10^6/uL (3.50-5.40) Hemoglobin 12.9g/dL (12.0-15.5) Hematocrit 41.2% (36.0-47.0) Mean Corpuscular Volume 84fL (79-100) Mean Corpuscular Hemoglobin 26pg (25-35) Mean Corpuscular Hemoglobin Concent 31g/dL (31-37) Red Cell Distribution Width 16.5% (11.5-14.5) Platelet Count 278x10^3/uL (140-400) Neutrophils (%) (Auto) 86% (31-73) Lymphocytes (%) (Auto) 5% (24-48) Monocytes (%) (Auto) 8% (0-9) Eosinophils (%) (Auto) 0% (0-3) Basophils (%) (Auto) 1% (0-3) Neutrophils # (Auto) 19.9x10^3uL (1.8-7.7) Lymphocytes # (Auto) 1.2x10^3/uL (1.0-4.8) Monocytes # (Auto) 1.8x10^3/uL (0.0-1.1) Eosinophils # (Auto) 0.0x10^3/uL (0.0-0.7) Basophils # (Auto) 0.2x10^3/uL (0.0-0.2) Segmented Neutrophils % 74% (35-66) Band Neutrophils % 13% (0-9) Lymphocytes % 4% (24-48) Monocytes % 9% (0-10) Platelet Estimate Adequate (ADEQUATE) Giant Platelets Occ Anisocytosis Slight Ovalocytes Occ Stomatocytes Mod Sodium Level 145mmol/L (136-145) Potassium Level 6.2mmol/L (3.5-5.1) Chloride Level 104mmol/L (98-107) Carbon Dioxide Level 33mmol/L (21-32) Anion Gap 8 (6-14) Blood Urea Nitrogen 42mg/dL (7-20) Creatinine 2.3mg/dL (0.6-1.0) Estimated GFR (Cockcroft-Gault) 20.8 BUN/Creatinine Ratio 18 (6-20) Glucose Level 124mg/dL (70-99) Lactic Acid Level 1.1mmol/L (0.4-2.0) Calcium Level 8.9mg/dL (8.5-10.1) Total Bilirubin 1.5mg/dL (0.2-1.0) Aspartate Amino Transf (AST/SGOT) 44U/L (15-37) Alanine Aminotransferase (ALT/SGPT) 29U/L (14-59) Alkaline Phosphatase 117U/L (46-116) Troponin I Quantitative 4.627ng/mL (0.000-0.055) Total Protein 6.8g/dL (6.4-8.2) Albumin 3.1g/dL (3.4-5.0) Albumin/Globulin Ratio 0.8 (1.0-1.7) Procalcitonin 14.79ng/mL (0.00-0.10) O2 Saturation 91% (92-99) Arterial Blood pH 7.42 (7.35-7.45) Arterial Blood pH (Temp corrected) 7.41 Arterial Blood pCO2 at Patient Temp 49mmHg (35-46) Arterial Blood pCO2 (Temp correct) 50mmHg Arterial Blood pO2 at Patient Temp 62mmHg (65-108) Arterial Blood pO2 (Temp corrected) 64mmHg Arterial Blood HCO3 31mmol/L (21-28) Arterial Blood Base Excess 5mmol/L (-3-3) FiO2 32 Urine Collection Type Unknown Urine Color Claire Urine Clarity Cloudy Urine pH 6.0 Urine Specific [place] 1.020 Urine Protein 100mg/dL (NEG-TRACE) Urine Glucose (UA) Negativemg/dL (NEG) Urine Ketones (Stick) Tracemg/dL (NEG) Urine Blood Moderate (NEG) Urine Nitrite Negative (NEG) Urine Bilirubin Small (NEG) Urine Urobilinogen Dipstick 1.0mg/dL (0.2 mg/dL) Urine Leukocyte Esterase Large (NEG) Urine RBC 1-2/HPF (0-2) Urine WBC >40/HPF (0-4) Urine Squamous Epithelial Cells Occ/LPF Urine Bacteria Moderate/HPF (0-FEW) Urine Hyaline Casts Few/HPF Test 11/17/16 07:26 Lactic Acid Level 1.7mmol/L (0.4-2.0) ECHOCARDIOGRAM ECHOCARDIOGRAM <Conclusion> Basal inferior wall hypokinesis. The Ejection Fraction is estimated at 45%. Pacer wire noted in right atrium and right ventricle. Mild to moderate mitral regurgitation. Mild tricuspid regurgitation. The PA pressure was estimated at 31 mmHg. There is no evidence of significant pericardial effusion. DATE: 10/29/15 1713 HEART CATH HEART CATH Conclusion 1. Two-vessel coronary artery disease. The stenosis in the left anterior descending artery was physiologically significant based on FFR measurement of 0.80. The previous to placed stent in the right coronary artery is widely patent. 2. Successful PCI/stents placement to the left anterior descending and left circumflex arteries. 3. Severe global left ventricular systolic dysfunction with ejection fraction estimated at 20-25%. 4. 1 plus mitral regurgitation. No significant aortic stenosis. Recommendations 1. Aspirin 325 mg daily. 2. Plavix 75 mg daily for at least 4-6 weeks and preferably one year 3. Cardiovascular risk factor modification DATE: 08/13/15 1447 ASSESSMENT/PLAN ASSESSMENT/PLAN 1. NSTEMI peak 4.627 possibly demand ischemia in the setting of PANCHITO and UTI/sepsis not candidate for aggressive treatment; continue medical management. Is DNR 2. Chronic systolic heart failure with ischemic cardiomyopathy most recent echo with LVEF 45%. will repeat CXR with vascular congestion. marginal output with IV lasix check NT Pro BNP 3. Acute on chronic respiratory failure with AE COPD per pulm 4. PAFIB with RVR likely secondary to UTI/sepsis on Cardizem gtt. HR remains elevated will give dose of IV dig. On Eliquis at home but too lethargic to taking this morning- start Lovenox for stroke prophylaxis 5. UTI/sepsis 6. h/o Ventricular tachycardia: s/p AICD continue Mexiletine and BB 7. CAD PCI/stents to RCA, LAD, and LCX continue DAPT as able 8. HTN controlled 9. HLP Problems: ROSSI KEY APRN Nov 17, 2016 12:32
[2016-11-17] MEDS: IPRATRPIUM/ALBUTEROL 0.5/2.5MG 3 ML NEBU. NEB SCH ×3 (12:42→20:16)
--- NOTE | 2016-11-17 13:33 | RAD ---
EXAM: Renal/retroperitonal ultrasound HISTORY: Acute on chronic renal failure. Renal cyst. COMPARISON: None. FINDINGS: Ultrasound of the kidneys, bladder and retroperitoneum was performed. The right kidney measures 11.9 cm. Cortical thickness and echogenicity are preserved. There is no hydronephrosis. A benign-appearing cyst at the right lower pole measures 1.4 x 1.2 cm. The left kidney measures 11.1 cm. Cortical thickness and echogenicity are preserved. There is no hydronephrosis. The bladder is decompressed by a Esparza catheter. IMPRESSION: 1. Benign 1.4 cm right renal cyst. Otherwise unremarkable examination of the kidneys. No hydronephrosis.
[2016-11-17] MEDS: FUROSEMIDE 40 MG/4 ML VIAL IVP SCH (13:47)
[2016-11-17] MEDS: MEROPENEM 500 MG in IV NORMAL SALINE 50ML 50 ML IV SCH ×2 (13:47→21:36)
[2016-11-17 15:44] LABS: ALBUMIN 2.5 g/dL (3.4-5.0); ALBUMIN/GLOBULIN RATIO 0.6 (1.0-1.7); CALCIUM 8.5 mg/dL (8.5-10.1); CREATININE 2.1 mg/dL (0.6-1.0); GFR 23.2; POTASSIUM 4.5 mmol/L (3.5-5.1); TOTAL BILIRUBIN 1.2 mg/dL (0.2-1.0); TOTAL PROTEIN 6.5 g/dL (6.4-8.2)
[2016-11-17] MEDS: ACETAMINOPHEN 325 MG TABLET. PO PRN (17:09)
--- NOTE | 2016-11-17 17:10 | CARD ---
APPROVED REPORT EXAM: Two-dimensional and M-mode echocardiogram with Doppler and color Doppler. Other Information Quality : GoodHR: 103bpm Rhythm : Atrial Fibrillation INDICATION CHF 2D DIMENSIONS RVDd3.5 (2.9-3.5cm)Left Atrium(2D)4.6 (1.6-4.0cm) IVSd1.0 (0.7-1.1cm)Aortic Root(2D)2.7 (2.0-3.7cm) LVDd4.9 (3.9-5.9cm)LVOT Diameter2.0 (1.8-2.4cm) PWd1.0 (0.7-1.1cm)LVDs4.7 (2.5-4.0cm) FS (%) 4.0 %SV10.1 ml Aortic Valve AoV Peak Max.97.9cm/sAoV VTI14.8cm AO Peak GR.3.8mmHgLVOT Peak Max.78.6cm/s AO Mean GR.2mmHgAVA (VMAX)2.48cm2 Mitral Valve MV E Peak Gr.5mmHgMV E Mean Gr.2mmHg Pulmonary Valve PV Peak Fnrfkynl81.7cm/s Tricuspid Valve TR P. Ezdwpsmv529pp/sTR Peak Gr.50mmHg Pulmonary Vein S1 Qjdteaek58.2cm/s LEFT VENTRICLE The left ventricle is normal size. There is normal left ventricular wall thickness. Left ventricle sy stolic function is moderately to severely impaired. The Ejection Fraction is 25-30%. There is severe hypokinesis in the basal through mid inferior wall. The anterior wall is moderately hypokinetic as we ll. All other left ventricular greenberg are moderately hypokinetic. Unable to assess the LV diastolic fu nction due to atrial fibrillation. No left ventricle thrombus noted on this study. RIGHT VENTRICLE The right ventricle is mildly dilated. There is normal right ventricular wall thickness. The right ve ntricular systolic function is normal. There is a pacemaker lead in the right ventricle. ATRIA The left atrium is mildly dilated. The right atrium is mildly dilated. The interatrial septum is inta ct with no evidence for an atrial septal defect or patent foramen ovale as noted on 2-D or Doppler im aging. AORTIC VALVE The aortic valve is mildly sclerotic. Doppler and Color Flow revealed no significant aortic regurgita tion. There is no significant aortic valvular stenosis. MITRAL VALVE Mitral annular calcification is mild. The mitral valve leaflets are thickened. There is no evidence o f mitral valve prolapse. There is no mitral valve stenosis. Doppler and Color Flow revealed mild mitr al regurgitation. TRICUSPID VALVE The tricuspid valve leaflets are thickened , but open well. Doppler and Color Flow revealed moderate tricuspid regurgitation. The pulmonary artery systolic pressure is estimated at 55 mmHg. PULMONIC VALVE The pulmonary valve is normal in structure and function. Doppler and Color Flow revealed mild pulmoni c valvular regurgitation. GREAT VESSELS The aortic root is normal in size. The ascending aorta is normal in size. The pulmonary artery is nor mal. The IVC is normal in size and collapses >50% with inspiration. PERICARDIAL EFFUSION There is no evidence of significant pericardial effusion. Critical Notification Critical Value: No <Conclusion> The left ventricle is normal size. Left ventricle systolic function is moderately to severely impaired. The Ejection Fraction is 25-30%. There is severe hypokinesis in the basal through mid inferior wall. The anterior wall is moderately h ypokinetic as well. All other left ventricular greenberg are moderately hypokinetic. There is no significant aortic valvular stenosis. Doppler and Color Flow revealed no significant aortic regurgitation. Doppler and Color Flow revealed mild mitral regurgitation. Doppler and Color Flow revealed moderate tricuspid regurgitation. The pulmonary artery systolic pressure is estimated at 55 mmHg. There is no evidence of significant pericardial effusion.
[2016-11-17] MEDS: ENOXAPARIN ** NOTE DOSE ** SYRINGE SQ SCH (17:29)
[2016-11-18] VITALS (14 sets, daily range): BP systolic 106–141; BP diastolic 33–86
--- NOTE | 2016-11-18 03:36 | CONS ---
DATE OF CONSULTATION: PRIMARY PHYSICIAN: Dr. Cleveland. REASON FOR CONSULTATION: [id number] renal insufficiency. HISTORY OF PRESENT ILLNESS: The patient is a pleasant 71-year-old female who we have seen in the past for [id number] renal insufficiency. She is also noted to have had acute renal failure on numerous previous occasions, previously associated with NSAID use and once associated with acute colitis. In this setting, she has ostomy bag. Her baseline creatinine seems to run about 1.5-1.7. She was 1.7 as recently as 09/04/2016. She has been as low as 1.0. However, I believe this was prior to her cardiomyopathy. She complains of shortness of breath, productive cough for 2 days as reported to the ER. She is unable to give me much in terms of history. She has been increasingly lethargic and did not provide much interaction. Her sats were noted to be 91-92%; however, her chest x-ray appears to be relatively clear other than mild vascular congestion. She is felt to have a UTI and was admitted to the hospital for further evaluation. As mentioned previously, her creatinine is mildly elevated from her baseline at 2.3 (baseline 1.7). We were asked to see her for the same. She has apparently been treated by sepsis protocol. She was noted to have hyperkalemia and was treated with temporizing measures for the same also per my discussion with the ICU nurse. Prior troponins are positive. Her procalcitonin is positive. She is noted to have hypoalbuminemia also. She is not in gross metabolic acidosis. She is noted to have been treated with Macrobid as an outpatient based on her home list of medications. She was on potassium supplements also as reviewed. For rest of details, see electronic records. DORETHA KASPER MD DR: SANDRA/edelmira JOB#: [id number] / [id number]
[2016-11-18] MEDS: MEROPENEM 500 MG in IV NORMAL SALINE 50ML 50 ML IV SCH ×3 (05:44→22:14)
[2016-11-18] MEDS: MEXILETINE HCL 200 MG CAPSULE PO SCH ×3 (05:45→21:08)
[2016-11-18 06:01] LABS: BASO # 0.1 x10^3/uL (0.0-0.2); BASO % 0 % (0-3); EOS % 0 % (0-3); HEMATOCRIT 38.3 % (36.0-47.0); HEMOGLOBIN 11.8 g/dL (12.0-15.5); LYMPH # 0.6 x10^3/uL (1.0-4.8); LYMPH % 3 % (24-48); MEAN CORPUSCULAR HEMOGLOBIN 26 pg (25-35); MEAN CORPUSCULAR HGB CONC 31 g/dL (31-37); MEAN CORPUSCULAR VOLUME 85 fL (79-100); MONO % 6 % (0-9); NEUT % 90 % (31-73); PLATELET COUNT 206 x10^3/uL (140-400); RED BLOOD COUNT 4.52 x10^6/uL (3.50-5.40); RED CELL DISTRIBUTION WIDTH 16.8 % (11.5-14.5); WHITE BLOOD COUNT 19.4 x10^3/uL (4.0-11.0)
[2016-11-18 06:38] LABS: ALBUMIN 2.6 g/dL (3.4-5.0); ALBUMIN/GLOBULIN RATIO 0.7 (1.0-1.7); CALCIUM 8.6 mg/dL (8.5-10.1); CREATININE 1.8 mg/dL (0.6-1.0); GFR 27.7; PHOSPHORUS 4.3 mg/dL (2.6-4.7); POTASSIUM 3.7 mmol/L (3.5-5.1); TOTAL BILIRUBIN 0.6 mg/dL (0.2-1.0); TOTAL PROTEIN 6.2 g/dL (6.4-8.2)
--- NOTE | 2016-11-18 07:12 | PDOC ---
Infectious Disease Note Subjective Subjective Doing ok but wants water. ROS ROS GEN: Denies fevers, chills, sweats HEENT: Denies blurred vision, sore throat CV: Denies chest pain RESP: Occ cough GI: Denies n/v/d NEURO: Denies confusion, dizziness MSK: Denies weakness, joint pain/swelling Vital Sign Vital Signs Vital Signs Date Time Temp Pulse Resp B/P Pulse Ox O2 Delivery O2 Flow Rate FiO2 11/18/16 06:00 96 30 134/74 96 Nasal Cannula 5.0 11/18/16 04:00 98.8 98.8 Physical Exam PHYSICAL EXAM GENERAL: NAD, Alert HEENT: PERRL, OC/OP -clear but dry NECK: Supple, no JVD, no LN LUNGS: Clear HEART: S1S2, no gallop, no murmur ABD: Soft, NT, no organomegaly, no rebound, obese Esparza EXT: No edema, no cyanosis CHIEF OF PRODUCTION: Alert, no focal neurologic deficit SKIN: No rash IV: ok Labs Lab Laboratory Tests Test 11/17/16 07:26 11/17/16 08:30 11/17/16 12:30 11/17/16 14:35 Lactic Acid Level 1.7mmol/L (0.4-2.0) Nasal Screen MRSA (PCR) Negative (Negative) Troponin I Quantitative 2.422ng/mL (0.000-0.055) Sodium Level 149mmol/L (136-145) Potassium Level 4.5mmol/L (3.5-5.1) Chloride Level 110mmol/L (98-107) Carbon Dioxide Level 29mmol/L (21-32) Anion Gap 10 (6-14) Blood Urea Nitrogen 40mg/dL (7-20) Creatinine 2.1mg/dL (0.6-1.0) Estimated GFR (Cockcroft-Gault) 23.2 BUN/Creatinine Ratio 19 (6-20) Glucose Level 132mg/dL (70-99) Calcium Level 8.5mg/dL (8.5-10.1) Total Bilirubin 1.2mg/dL (0.2-1.0) Aspartate Amino Transf (AST/SGOT) 59U/L (15-37) Alanine Aminotransferase (ALT/SGPT) 46U/L (14-59) Alkaline Phosphatase 154U/L (46-116) DN-Bnr-K-Type Natriuretic Peptide > 11031mg/mL (0-124) Total Protein 6.5g/dL (6.4-8.2) Albumin 2.5g/dL (3.4-5.0) Albumin/Globulin Ratio 0.6 (1.0-1.7) Test 11/17/16 18:20 11/18/16 05:45 Troponin I Quantitative 4.220ng/mL (0.000-0.055) White Blood Count 19.4x10^3/uL (4.0-11.0) Red Blood Count 4.52x10^6/uL (3.50-5.40) Hemoglobin 11.8g/dL (12.0-15.5) Hematocrit 38.3% (36.0-47.0) Mean Corpuscular Volume 85fL (79-100) Mean Corpuscular Hemoglobin 26pg (25-35) Mean Corpuscular Hemoglobin Concent 31g/dL (31-37) Red Cell Distribution Width 16.8% (11.5-14.5) Platelet Count 206x10^3/uL (140-400) Neutrophils (%) (Auto) 90% (31-73) Lymphocytes (%) (Auto) 3% (24-48) Monocytes (%) (Auto) 6% (0-9) Eosinophils (%) (Auto) 0% (0-3) Basophils (%) (Auto) 0% (0-3) Neutrophils # (Auto) 17.5x10^3uL (1.8-7.7) Lymphocytes # (Auto) 0.6x10^3/uL (1.0-4.8) Monocytes # (Auto) 1.2x10^3/uL (0.0-1.1) Eosinophils # (Auto) 0.0x10^3/uL (0.0-0.7) Basophils # (Auto) 0.1x10^3/uL (0.0-0.2) Sodium Level 147mmol/L (136-145) Potassium Level 3.7mmol/L (3.5-5.1) Chloride Level 108mmol/L (98-107) Carbon Dioxide Level 29mmol/L (21-32) Anion Gap 10 (6-14) Blood Urea Nitrogen 40mg/dL (7-20) Creatinine 1.8mg/dL (0.6-1.0) Estimated GFR (Cockcroft-Gault) 27.7 BUN/Creatinine Ratio 22 (6-20) Glucose Level 128mg/dL (70-99) Calcium Level 8.6mg/dL (8.5-10.1) Phosphorus Level 4.3mg/dL (2.6-4.7) Magnesium Level 2.3mg/dL (1.8-2.4) Total Bilirubin 0.6mg/dL (0.2-1.0) Aspartate Amino Transf (AST/SGOT) 48U/L (15-37) Alanine Aminotransferase (ALT/SGPT) 45U/L (14-59) Alkaline Phosphatase 145U/L (46-116) Total Protein 6.2g/dL (6.4-8.2) Albumin 2.6g/dL (3.4-5.0) Albumin/Globulin Ratio 0.7 (1.0-1.7) Objective Assessment Sepsis - POA 11/17 - better Leukocytosis - some better ? NSTEMI Acute Encephalopathy - improved PANCHITO - some better UTI -POA Afib Hyperkalemia Plan Plan of Care Cont Meropenem and Zyvox F/u labs and cults Critically ill but improving HIPOLITO GARCIA MD Nov 18, 2016 07:12
[2016-11-18] MEDS: CARVEDILOL 12.5 MG TABLET PO SCH (08:00)
[2016-11-18] MEDS ORDERED: VANCOMYCIN 1.25 GM in IV NORMAL SALINE 250ML 250 ML IV SCH (08:00)
[2016-11-18] MEDS: BUDESONIDE 0.5 MG/2 ML NEBU NEB SCH ×2 (08:01→19:51)
[2016-11-18] MEDS: IPRATRPIUM/ALBUTEROL 0.5/2.5MG 3 ML NEBU. NEB SCH ×4 (08:01→19:51)
--- NOTE | 2016-11-18 08:08 | PDOC ---
SUBJECTIVE Subjective Feeling better today. Feels hot. Wants to have something to drink. Breathing is doing okay. Denies any significant pain. OBJECTIVE Vital Signs Vital Signs Date Time Temp Pulse Resp B/P Pulse Ox O2 Delivery O2 Flow Rate FiO2 11/18/16 08:03 92 Nasal Cannula 5.0 11/18/16 07:00 104 27 123/71 93 Nasal Cannula 5.0 11/18/16 06:00 96 30 134/74 96 Nasal Cannula 5.0 11/18/16 05:00 104 31 141/82 96 Nasal Cannula 5.0 11/18/16 04:00 98.8 95 36 129/73 97 Nasal Cannula 5.0 98.8 11/18/16 03:45 Nasal Cannula 5.0 11/18/16 03:00 88 23 129/71 96 Nasal Cannula 5.0 11/18/16 02:00 74 35 122/75 93 Nasal Cannula 5.0 11/18/16 01:00 70 21 108/56 93 Nasal Cannula 5.0 11/18/16 00:00 98.6 89 30 111/63 94 Nasal Cannula 5.0 98.6 11/17/16 23:59 Nasal Cannula 5.0 11/17/16 23:00 73 35 110/66 94 Nasal Cannula 5.0 11/17/16 22:00 72 34 102/54 90 Nasal Cannula 5.0 11/17/16 21:00 79 24 96/55 91 Nasal Cannula 5.0 11/17/16 20:16 92 Nasal Cannula 5.0 11/17/16 20:00 99.4 82 24 100/56 94 Nasal Cannula 5.0 99.4 11/17/16 19:50 Nasal Cannula 5.0 11/17/16 19:00 87 35 107/59 95 Nasal Cannula 5.0 11/17/16 18:00 95 30 114/66 94 Nasal Cannula 5.0 11/17/16 17:00 101.4 105 35 165/73 90 Nasal Cannula 5.0 101.4 11/17/16 17:00 109 115/73 11/17/16 16:43 92 Nasal Cannula 4.0 11/17/16 16:00 102.2 89 27 85/46 95 Nasal Cannula 5.0 102.2 11/17/16 16:00 Nasal Cannula 5.0 11/17/16 15:00 101 29 105/59 92 Nasal Cannula 5.0 11/17/16 14:00 99 28 130/57 92 Nasal Cannula 4.0 11/17/16 13:00 117 29 117/61 91 Nasal Cannula 4.0 11/17/16 12:42 93 Nasal Cannula 4.0 11/17/16 12:00 Nasal Cannula 3.0 11/17/16 12:00 100.4 146 36 124/73 91 Nasal Cannula 3.0 100.4 11/17/16 11:00 156 36 138/79 93 Nasal Cannula 3.0 11/17/16 10:00 97 23 104/66 98 Nasal Cannula 3.0 11/17/16 09:19 96 Nasal Cannula 3.0 11/17/16 09:00 84 32 112/69 94 Nasal Cannula 3.0 11/17/16 09:00 84 112/69 11/17/16 09:00 84 112/69 11/17/16 08:30 98.9 92 27 112/69 97 Nasal Cannula 3.0 98.9 11/17/16 08:30 Nasal Cannula 3.0 I & O Intake and Output 11/18/16 07:00 Intake Total 3720 ml Output Total 1725 ml Balance 1995 ml Intake Oral 120 ml IV Total 3600 ml Output Urine Total 1325 ml Stool Total 400 ml PHYSICAL EXAM Physical Exam General: No acute distress. Laying in bed. Nasal cannula oxygen on. Mental status: Alert and appears at baseline orientation. Chest: Air movement: Fair. Auscultation: Wheezes throughout anteriorly and laterally. Cardiovascular: Rate: Controlled. Rhythm: Occasional irregular beats. Murmur : none. Abdomen: Bowel sounds: normal. Soft. Nondistended. Tenderness: nontender to palpation. No guarding. No rebound. Extremities: Trace lower extremity edema. ASSESSMENT/PLAN Assessment/Plan 1. Sepsis due to UTI: Appears to be improving. Continue antibiotics per infectious disease. 2. Acute respiratory failure: Appears to be improving. Continue per pulmonology. 2. Hyperkalemia: Resolved with Lasix. Continue per nephrology. 3. Acute renal failure: Stable. Continue per nephrology. 4. COPD with probable exacerbation: Continue nebulizer treatments. 5. CHF, acute on chronic: Continue per cardiology. Possibly due to recent acute ME. 6. Elevated troponins consistent with recent acute ME: Continue per cardiology. 7. Intermittent cough: Speech therapy to evaluate. Advance diet depending upon their recommendations. 8. A. fib with RVR: Continue Cardizem drip and taper with transition to oral per cardiology Problems: COMMENT Lab Laboratory Tests Test 11/17/16 08:30 11/17/16 12:30 11/17/16 14:35 11/17/16 18:20 Nasal Screen MRSA (PCR) Negative (Negative) Troponin I Quantitative 2.422ng/mL (0.000-0.055) 4.220ng/mL (0.000-0.055) Sodium Level 149mmol/L (136-145) Potassium Level 4.5mmol/L (3.5-5.1) Chloride Level 110mmol/L (98-107) Carbon Dioxide Level 29mmol/L (21-32) Anion Gap 10 (6-14) Blood Urea Nitrogen 40mg/dL (7-20) Creatinine 2.1mg/dL (0.6-1.0) Estimated GFR (Cockcroft-Gault) 23.2 BUN/Creatinine Ratio 19 (6-20) Glucose Level 132mg/dL (70-99) Calcium Level 8.5mg/dL (8.5-10.1) Total Bilirubin 1.2mg/dL (0.2-1.0) Aspartate Amino Transf (AST/SGOT) 59U/L (15-37) Alanine Aminotransferase (ALT/SGPT) 46U/L (14-59) Alkaline Phosphatase 154U/L (46-116) LS-Lpb-W-Type Natriuretic Peptide > 68018zv/mL (0-124) Total Protein 6.5g/dL (6.4-8.2) Albumin 2.5g/dL (3.4-5.0) Albumin/Globulin Ratio 0.6 (1.0-1.7) Test 11/18/16 05:45 White Blood Count 19.4x10^3/uL (4.0-11.0) Red Blood Count 4.52x10^6/uL (3.50-5.40) Hemoglobin 11.8g/dL (12.0-15.5) Hematocrit 38.3% (36.0-47.0) Mean Corpuscular Volume 85fL (79-100) Mean Corpuscular Hemoglobin 26pg (25-35) Mean Corpuscular Hemoglobin Concent 31g/dL (31-37) Red Cell Distribution Width 16.8% (11.5-14.5) Platelet Count 206x10^3/uL (140-400) Neutrophils (%) (Auto) 90% (31-73) Lymphocytes (%) (Auto) 3% (24-48) Monocytes (%) (Auto) 6% (0-9) Eosinophils (%) (Auto) 0% (0-3) Basophils (%) (Auto) 0% (0-3) Neutrophils # (Auto) 17.5x10^3uL (1.8-7.7) Lymphocytes # (Auto) 0.6x10^3/uL (1.0-4.8) Monocytes # (Auto) 1.2x10^3/uL (0.0-1.1) Eosinophils # (Auto) 0.0x10^3/uL (0.0-0.7) Basophils # (Auto) 0.1x10^3/uL (0.0-0.2) Sodium Level 147mmol/L (136-145) Potassium Level 3.7mmol/L (3.5-5.1) Chloride Level 108mmol/L (98-107) Carbon Dioxide Level 29mmol/L (21-32) Anion Gap 10 (6-14) Blood Urea Nitrogen 40mg/dL (7-20) Creatinine 1.8mg/dL (0.6-1.0) Estimated GFR (Cockcroft-Gault) 27.7 BUN/Creatinine Ratio 22 (6-20) Glucose Level 128mg/dL (70-99) Calcium Level 8.6mg/dL (8.5-10.1) Phosphorus Level 4.3mg/dL (2.6-4.7) Magnesium Level 2.3mg/dL (1.8-2.4) Total Bilirubin 0.6mg/dL (0.2-1.0) Aspartate Amino Transf (AST/SGOT) 48U/L (15-37) Alanine Aminotransferase (ALT/SGPT) 45U/L (14-59) Alkaline Phosphatase 145U/L (46-116) Total Protein 6.2g/dL (6.4-8.2) Albumin 2.6g/dL (3.4-5.0) Albumin/Globulin Ratio 0.7 (1.0-1.7) KENDRA MANSFIELD MD Nov 18, 2016 08:08
[2016-11-18] MEDS: FUROSEMIDE 40 MG/4 ML VIAL IVP SCH (08:33)
[2016-11-18] MEDS: ENOXAPARIN ** NOTE DOSE ** SYRINGE SQ SCH (08:33)
--- NOTE | 2016-11-18 08:33 | RAD ---
Portable chest, 11/18/2016: History: Congestive heart failure Comparison is made to yesterday's study. A left-sided transvenous pacemaker remains in place with 2 leads extending in the right heart. The heart is enlarged. There is calcific plaquing of the aorta. The pulmonary vascularity is at the upper limits of normal. There is minimal scarring in the left lower chest. No acute infiltrates are seen. No definite pleural fluid is appreciated. IMPRESSION: 1. Cardiomegaly. 2. No significant change since yesterday's study.
[2016-11-18] MEDS: AMIODARONE HCL 200 MG TABLET PO SCH (08:34)
[2016-11-18] MEDS: ASPIRIN ENTERIC COATED 81 MG TABLET.DR. PO SCH (08:34)
[2016-11-18] MEDS: GABAPENTIN 300 MG CAPSULE. PO SCH ×2 (08:34→21:08)
[2016-11-18] MEDS: FLUOXETINE HCL 20 MG CAPSULE PO SCH (08:34)
--- NOTE | 2016-11-18 09:24 | PDOC ---
SUBJECTIVE ROS PANCHITO/ CKD III Doing better from Mental status aspect CVS: no Orthopnea, no CP RESP: no SOB, no FRANKLIN GI: no Nausea, no Vomiting : no Dysuria, no Urgency OBJECTIVE Vital Signs Vital Signs Date Time Temp Pulse Resp B/P Pulse Ox O2 Delivery O2 Flow Rate FiO2 11/18/16 08:34 111 131/66 11/18/16 08:03 92 Nasal Cannula 5.0 11/18/16 08:00 98.7 28 98.7 I & 0 Intake and Output 11/18/16 07:00 Intake Total 3720 ml Output Total 1725 ml Balance 1995 ml Intake Oral 120 ml IV Total 3600 ml Output Urine Total 1325 ml Stool Total 400 ml PHYSICAL EXAM Physical Exam General Appearance: Awake more Alert Oriented x 2 In no Distress Eyes: Pupils reactive overall Sclera and Conjunctiva Normal EN: No EN Drainage Mucous Memb. dryish Neck: no JVD min JVP Supple no Thyromegaly CVS: S1 S2 sys Murmur No Gallop No Rub Tr Edema Resp: no Rales no Rhonchi no Acc. Muscle use GI: BS + ve NO Bruit Minn Tender Non Distended Ostomy bag in palce : no CVA tenderness; no Suprapubic Tenderness SKIN: no Rashes Breast Exam deferred ASSESSMENT/PLAN PANCHITO/ ATN: vs pyelonephritis. Current FLuid and E-lyte status does not necessitate emergent need for Dialysis. Will re-evaluate for Dialysis in am. Worsening Cmypoathy (as noted on ECHO) - watch off of IVF (given for "Sepsis") . Now Lasix as being administered ? Sepsis due to UTI -await cultures, defer Abx to Dr Katz ? Some CKD III as noted per previous trend (? ASVDz associated +/- NSAIDs use in past) - Worsening Cmyopahty may be contributing too Possible UTI with Hematuria - await Cx, Microscopic hematuria - suspect due to Cysttis but will recheck renal US due to Previous Renal Cyst Renal Cyst - US as ordered Proteinuria - suspect due to UTI - will need f/up as OP ^K - resolved ^Na - she is thirsty and will allow for Po intake once she can safely swallow HTN: Current BP reviewed. Defer to Cardiology to optimize from Cmyopahty standpoint. Restart ARB as she was on it as OP. May need to accept some Azotemia - Benefits > Risk of ^ creat - as long as K can be managed/ Monitored COMMENT/RELEVANT DATA Meds Current Medications Medications (Trade) Dose Ordered Sig/Carrie Start Time Stop Time Status Last Admin Dose Admin Acetaminophen (Tylenol) 650 mg PRN Q6HRS PRN 11/17/16 08:30 11/17/16 17:09 650 MG Albuterol Sulfate (Ventolin Neb Soln) 2.5 mg PRN Q4HRS PRN 11/17/16 08:30 Albuterol/ Ipratropium (Duoneb) 3 ml RTQID 11/17/16 12:00 11/18/16 08:01 3 ML Amiodarone HCl (Cordarone) 200 mg DAILY 11/17/16 09:00 11/18/16 08:34 200 MG Apixaban (Eliquis) 5 mg BID 11/17/16 09:00 11/17/16 15:30 DC Aspirin (Ecotrin) 81 mg DAILY08 11/17/16 09:00 11/18/16 08:34 81 MG Budesonide 0.5 mg 0.5 mg RTBID 11/17/16 09:00 11/18/16 08:01 0.5 MG Calcium Gluconate 1,000 mg 1X ONCE 11/17/16 06:30 11/17/16 06:31 DC 11/17/16 06:55 1,000 MG Carvedilol (Coreg) 12.5 mg BIDWMEALS 11/17/16 09:00 Dextrose 25 gm 1X ONCE 11/17/16 06:30 11/17/16 06:31 DC 11/17/16 06:58 25 GM Digoxin (Lanoxin) 250 mcg 1X ONCE 11/17/16 12:30 11/17/16 12:36 DC Diltiazem HCl/ Dextrose (Cardizem) 125 ml @ 0 mls/hr CONT PRN 11/17/16 11:15 11/17/16 19:39 12 MLS/HR Enoxaparin Sodium (Lovenox 80mg Syringe) 80 mg DAILY 11/17/16 14:00 11/18/16 08:33 80 MG Enoxaparin Sodium (Lovenox Per Pharmacy Treatment Dosing) 1 each PRN DAILY PRN 11/17/16 15:30 Fluoxetine HCl (Prozac) 40 mg DAILY 11/17/16 09:00 11/18/16 08:34 40 MG Furosemide (Lasix) 40 mg DAILY 11/17/16 09:00 11/18/16 08:33 40 MG Gabapentin (Neurontin) 300 mg BID 11/17/16 09:00 11/18/16 08:34 300 MG Info (Anti-Coagulation Monitoring By Pharmacy) 1 each PRN DAILY PRN 11/17/16 08:45 Insulin Human Regular (Novolin R Vial) 10 unit 1X ONCE 11/17/16 06:30 11/17/16 06:31 DC 11/17/16 06:57 10 UNIT Levofloxacin/ Dextrose (LEVAQUIN 750mg PREMIX) 150 ml @ 100 mls/hr Q48H 11/17/16 07:00 11/17/16 10:38 DC Levofloxacin/ Dextrose (Levaquin Per Pharmacy) 1 each PRN DAILY PRN 11/17/16 06:15 11/17/16 21:00 DC Linezolid 300 ml @ 300 mls/hr Q12HR 11/17/16 21:00 11/18/16 08:37 300 MLS/HR Magnesium Sulfate/ Dextrose 50 ml @ 25 mls/hr PRN DAILY PRN 11/17/16 09:30 Meropenem 500 mg/ Sodium Chloride 50 ml @ 100 mls/hr Q8HRS 11/17/16 14:00 11/18/16 05:44 100 MLS/HR Mexiletine HCl (Mexitil) 200 mg Q8HRS 11/17/16 12:00 11/18/16 05:45 200 MG Non-Formulary Medication 1 inh BID 11/17/16 09:00 11/17/16 09:00 DC Ondansetron HCl 4 mg 4 mg PRN Q8HRS PRN 11/17/16 06:15 11/18/16 06:14 DC Piperacillin Sod/ Tazobactam Sod 2.25 gm/Sodium Chloride 50 ml @ 100 mls/hr Q6HRS 11/17/16 06:30 11/17/16 10:38 DC 11/17/16 07:04 100 MLS/HR Piperacillin Sod/ Tazobactam Sod 1 each 1 each PRN DAILY PRN 11/17/16 06:15 11/17/16 10:38 DC Sodium Polystyrene Sulfonate (Kayexalate) 30 gm 1X ONCE 11/17/16 06:30 11/17/16 06:31 DC 11/17/16 06:58 30 GM Sodium Bicarbonate 50 meq 1X ONCE 11/17/16 06:30 11/17/16 06:31 DC 11/17/16 06:56 50 MEQ Sodium Chloride (Iv Sodium Chloride 0.9% 1000ml Bag) 1,000 ml @ 125 mls/hr Q8H 11/17/16 06:12 11/18/16 06:11 DC 11/17/16 20:34 125 MLS/HR Vancomycin HCl (Vanco Per Pharmacy) 1 each PRN DAILY PRN 11/17/16 06:15 11/17/16 10:38 DC 11/17/16 09:32 1 EACH Vancomycin HCl 1 each 1 each 1X ONCE 11/19/16 07:30 11/19/16 07:30 DC Vancomycin HCl 2 gm/Sodium Chloride 500 ml @ 250 mls/hr 1X ONCE 11/17/16 07:00 11/17/16 09:04 DC 11/17/16 07:52 250 MLS/HR Vancomycin HCl/ Sodium Chloride (Iv Sodium Chloride 0.9% 250ml) 250 ml @ 167 mls/hr Q24H 11/18/16 08:00 11/18/16 08:00 DC Zolpidem Tartrate (Ambien) 5 mg PRN QHS PRN 11/17/16 08:30 Lab Laboratory Tests Test 11/17/16 12:30 11/17/16 14:35 11/17/16 18:20 11/18/16 05:45 Troponin I Quantitative 2.422ng/mL (0.000-0.055) 4.220ng/mL (0.000-0.055) Sodium Level 149mmol/L (136-145) 147mmol/L (136-145) Potassium Level 4.5mmol/L (3.5-5.1) 3.7mmol/L (3.5-5.1) Chloride Level 110mmol/L (98-107) 108mmol/L (98-107) Carbon Dioxide Level 29mmol/L (21-32) 29mmol/L (21-32) Anion Gap 10 (6-14) 10 (6-14) Blood Urea Nitrogen 40mg/dL (7-20) 40mg/dL (7-20) Creatinine 2.1mg/dL (0.6-1.0) 1.8mg/dL (0.6-1.0) Estimated GFR (Cockcroft-Gault) 23.2 27.7 BUN/Creatinine Ratio 19 (6-20) 22 (6-20) Glucose Level 132mg/dL (70-99) 128mg/dL (70-99) Calcium Level 8.5mg/dL (8.5-10.1) 8.6mg/dL (8.5-10.1) Total Bilirubin 1.2mg/dL (0.2-1.0) 0.6mg/dL (0.2-1.0) Aspartate Amino Transf (AST/SGOT) 59U/L (15-37) 48U/L (15-37) Alanine Aminotransferase (ALT/SGPT) 46U/L (14-59) 45U/L (14-59) Alkaline Phosphatase 154U/L (46-116) 145U/L (46-116) CO-Eff-Y-Type Natriuretic Peptide > 40748cp/mL (0-124) Total Protein 6.5g/dL (6.4-8.2) 6.2g/dL (6.4-8.2) Albumin 2.5g/dL (3.4-5.0) 2.6g/dL (3.4-5.0) Albumin/Globulin Ratio 0.6 (1.0-1.7) 0.7 (1.0-1.7) White Blood Count 19.4x10^3/uL (4.0-11.0) Red Blood Count 4.52x10^6/uL (3.50-5.40) Hemoglobin 11.8g/dL (12.0-15.5) Hematocrit 38.3% (36.0-47.0) Mean Corpuscular Volume 85fL (79-100) Mean Corpuscular Hemoglobin 26pg (25-35) Mean Corpuscular Hemoglobin Concent 31g/dL (31-37) Red Cell Distribution Width 16.8% (11.5-14.5) Platelet Count 206x10^3/uL (140-400) Neutrophils (%) (Auto) 90% (31-73) Lymphocytes (%) (Auto) 3% (24-48) Monocytes (%) (Auto) 6% (0-9) Eosinophils (%) (Auto) 0% (0-3) Basophils (%) (Auto) 0% (0-3) Neutrophils # (Auto) 17.5x10^3uL (1.8-7.7) Lymphocytes # (Auto) 0.6x10^3/uL (1.0-4.8) Monocytes # (Auto) 1.2x10^3/uL (0.0-1.1) Eosinophils # (Auto) 0.0x10^3/uL (0.0-0.7) Basophils # (Auto) 0.1x10^3/uL (0.0-0.2) Phosphorus Level 4.3mg/dL (2.6-4.7) Magnesium Level 2.3mg/dL (1.8-2.4) Other Portable chest, 11/18/2016: History: Congestive heart failure Comparison is made to yesterday's study. A left-sided transvenous pacemaker remains in place with 2 leads extending in the right heart. The heart is enlarged. There is calcific plaquing of the aorta. The pulmonary vascularity is at the upper limits of normal. There is minimal scarring in the left lower chest. No acute infiltrates are seen. No definite pleural fluid is appreciated. IMPRESSION: 1. Cardiomegaly. 2. No significant change since yesterday's study. The left ventricle is normal size. Left ventricle systolic function is moderately to severely impaired. The Ejection Fraction is 25-30%. There is severe hypokinesis in the basal through mid inferior wall. The anterior wall is moderately hypokinetic as well. All other left ventricular greenberg are moderately hypokinetic. There is no significant aortic valvular stenosis. Doppler and Color Flow revealed no significant aortic regurgitation. Doppler and Color Flow revealed mild mitral regurgitation. Doppler and Color Flow revealed moderate tricuspid regurgitation. The pulmonary artery systolic pressure is estimated at 55 mmHg. There is no evidence of significant pericardial effusion. DORETHA KASPER MD Nov 18, 2016 09:24
--- NOTE | 2016-11-18 09:53 | CONS ---
DATE OF CONSULTATION: 11/17/2016 PATIENT'S ROOM: ICU 13. REQUESTING PHYSICIAN: Dr. Mckenzie. REASON FOR CONSULTATION: Sepsis and UTI. HISTORY OF PRESENT ILLNESS: The patient currently is somewhat encephalopathic, unable to provide any past medical history, history of present illness, or review of systems. She is a 71-year-old female who is a long term resident at [facility]. She has a history of intestinal perforation and status post ostomy and history of recurrent urinary tract infections, some with E. coli, was intermediate to Zosyn, resistant to Unasyn amongst other resistances and Proteus that was resistant to piperacillin. She was brought to [facility] on 11/17/2016 secondary to complaints of shortness of air. Apparently, she had become lethargic today, had a productive cough. O2 sat was 91-92% on room air. On arrival, white blood cell count was 23,000 with 86% segs. Creatinine was elevated at 2.3, potassium of 6.3. Urinalysis was concerning for urinary tract infection. Influenza screen was negative. Chest x-ray showed some congestion. She was admitted to the intensive care unit and placed on vancomycin, Zosyn, and levofloxacin. Currently, she is confused, but will follow simple commands. PAST MEDICAL HISTORY: Positive for an intestinal perforation, acute kidney injury, AFib with RVR, cardiomyopathy, [id number] respiratory failure, history of thrush ____ coronary artery disease. PAST SURGICAL HISTORY: History of previous appendectomy, pacemaker and cardiac stents. REVIEW OF SYSTEMS: Unobtainable. SOCIAL HISTORY: No tobacco, alcohol, or drug use. She is a long term resident. FAMILY HISTORY: Noncontributory. ALLERGIES: LISTED NSAIDS AND HALOPERIDOL. CURRENT MEDICATIONS: Include vancomycin, Zosyn, levofloxacin, amiodarone, aspirin, Coreg, Lasix, Prozac. Other meds are available and had been reviewed in the chart. PHYSICAL EXAMINATION: VITAL SIGNS: Temperature was 99.4, pulse 97, but current heart rate 158, respiratory rate 23. She is on 3% nasal cannula, satting 98%. Blood pressure 104/66. CONSTITUTIONAL: She is lethargic, but she did open her mouth on commands. HEENT: Pupils are equal and reactive. Normal conjunctivae. Oropharynx is dry. She has dentures. NECK: Supple. No JVD. LUNGS: Decreased at the bases. HEART: S1, S2, tachy, no gross murmur. ABDOMEN: Soft, distended. Ostomy with a lot of gas. There is no guarding, no rebound. EXTREMITIES: No clubbing or cyanosis. No gross edema. SKIN: Without signs of generalized rash. IV sites are clean. Esparza is in place. LABORATORY DATA: White count is 23, hemoglobin 12.9, platelets 278, segs are 86, lymphs are 5. Potassium 6.2, creatinine of 2.3, glucose 124. AST 44, ALT 29, alkaline phosphatase 117. Troponin of 4.627. Procalcitonin of 14.79. Urinalysis concerning for urinary tract infection. Influenza screen was negative. RADIOLOGY: Reviewed in the history of present illness. IMPRESSION: 1. Sepsis present on admission. 2. Leukocytosis. 3. Acute encephalopathy. 4. Acute kidney injury. 5. UTI present on admission. 6. Atrial fibrillation. 7. Hyperkalemia. RECOMMENDATIONS: Given her previous records, which I reviewed, and her resistance patterns, we will discontinue the Zosyn, change to meropenem. Given her increased heart rate and atrial fibrillation and history of amiodarone, we will discontinue levofloxacin. We will discontinue her vancomycin given her acute renal failure and institute Zyvox. We will follow up on labs and cultures. She is critically ill. I did review the [place] records as well as her previous records from [facility]. I spent 35 minutes of critical care time. Thank you for allowing me to participate in this patient's care. If you have any questions, please do not hesitate to contact me. HIPOLITO GARCIA MD DR: JAROD/edelmira JOB#: [id number] / [id number]
[2016-11-18] MEDS: DILTIAZEM 125 MG in IV DEXTROSE 5% 100 ML IV PRN ×2 (10:37→19:57)
--- NOTE | 2016-11-18 11:01 | PDOC ---
PULMONARY PROGRESS NOTES Subjective feels better MS improved Vitals Vital Signs Date Time Temp Pulse Resp B/P Pulse Ox O2 Delivery O2 Flow Rate FiO2 11/18/16 10:00 89 25 136/86 95 Nasal Cannula 4.0 11/18/16 08:00 98.7 98.7 General: Alert, No acute distress HEENT: Other Lungs: Other (few rhonchi) Cardiovascular: S1 Abdomen: Soft Neuro Exam: Alert Extremities: No Edema Skin: Warm Labs Laboratory Tests Test 11/17/16 04:54 11/17/16 05:08 11/17/16 05:25 11/17/16 06:30 Influenza Type A Antigen Negative (NEGATIVE) Influenza Type B Antigen Negative (NEGATIVE) White Blood Count 23.0x10^3/uL (4.0-11.0) Red Blood Count 4.94x10^6/uL (3.50-5.40) Hemoglobin 12.9g/dL (12.0-15.5) Hematocrit 41.2% (36.0-47.0) Mean Corpuscular Volume 84fL (79-100) Mean Corpuscular Hemoglobin 26pg (25-35) Mean Corpuscular Hemoglobin Concent 31g/dL (31-37) Red Cell Distribution Width 16.5% (11.5-14.5) Platelet Count 278x10^3/uL (140-400) Neutrophils (%) (Auto) 86% (31-73) Lymphocytes (%) (Auto) 5% (24-48) Monocytes (%) (Auto) 8% (0-9) Eosinophils (%) (Auto) 0% (0-3) Basophils (%) (Auto) 1% (0-3) Neutrophils # (Auto) 19.9x10^3uL (1.8-7.7) Lymphocytes # (Auto) 1.2x10^3/uL (1.0-4.8) Monocytes # (Auto) 1.8x10^3/uL (0.0-1.1) Eosinophils # (Auto) 0.0x10^3/uL (0.0-0.7) Basophils # (Auto) 0.2x10^3/uL (0.0-0.2) Segmented Neutrophils % 74% (35-66) Band Neutrophils % 13% (0-9) Lymphocytes % 4% (24-48) Monocytes % 9% (0-10) Platelet Estimate Adequate (ADEQUATE) Giant Platelets Occ Anisocytosis Slight Ovalocytes Occ Stomatocytes Mod Sodium Level 145mmol/L (136-145) Potassium Level 6.2mmol/L (3.5-5.1) Chloride Level 104mmol/L (98-107) Carbon Dioxide Level 33mmol/L (21-32) Anion Gap 8 (6-14) Blood Urea Nitrogen 42mg/dL (7-20) Creatinine 2.3mg/dL (0.6-1.0) Estimated GFR (Cockcroft-Gault) 20.8 BUN/Creatinine Ratio 18 (6-20) Glucose Level 124mg/dL (70-99) Lactic Acid Level 1.1mmol/L (0.4-2.0) Calcium Level 8.9mg/dL (8.5-10.1) Total Bilirubin 1.5mg/dL (0.2-1.0) Aspartate Amino Transf (AST/SGOT) 44U/L (15-37) Alanine Aminotransferase (ALT/SGPT) 29U/L (14-59) Alkaline Phosphatase 117U/L (46-116) Troponin I Quantitative 4.627ng/mL (0.000-0.055) Total Protein 6.8g/dL (6.4-8.2) Albumin 3.1g/dL (3.4-5.0) Albumin/Globulin Ratio 0.8 (1.0-1.7) Procalcitonin 14.79ng/mL (0.00-0.10) O2 Saturation 91% (92-99) Arterial Blood pH 7.42 (7.35-7.45) Arterial Blood pH (Temp corrected) 7.41 Arterial Blood pCO2 at Patient Temp 49mmHg (35-46) Arterial Blood pCO2 (Temp correct) 50mmHg Arterial Blood pO2 at Patient Temp 62mmHg (65-108) Arterial Blood pO2 (Temp corrected) 64mmHg Arterial Blood HCO3 31mmol/L (21-28) Arterial Blood Base Excess 5mmol/L (-3-3) FiO2 32 Urine Collection Type Unknown Urine Color Claire Urine Clarity Cloudy Urine pH 6.0 Urine Specific Camanche 1.020 Urine Protein 100mg/dL (NEG-TRACE) Urine Glucose (UA) Negativemg/dL (NEG) Urine Ketones (Stick) Tracemg/dL (NEG) Urine Blood Moderate (NEG) Urine Nitrite Negative (NEG) Urine Bilirubin Small (NEG) Urine Urobilinogen Dipstick 1.0mg/dL (0.2 mg/dL) Urine Leukocyte Esterase Large (NEG) Urine RBC 1-2/HPF (0-2) Urine WBC >40/HPF (0-4) Urine Squamous Epithelial Cells Occ/LPF Urine Bacteria Moderate/HPF (0-FEW) Urine Hyaline Casts Few/HPF Test 11/17/16 07:26 11/17/16 08:30 11/17/16 12:30 11/17/16 14:35 Lactic Acid Level 1.7mmol/L (0.4-2.0) Nasal Screen MRSA (PCR) Negative (Negative) Troponin I Quantitative 2.422ng/mL (0.000-0.055) Sodium Level 149mmol/L (136-145) Potassium Level 4.5mmol/L (3.5-5.1) Chloride Level 110mmol/L (98-107) Carbon Dioxide Level 29mmol/L (21-32) Anion Gap 10 (6-14) Blood Urea Nitrogen 40mg/dL (7-20) Creatinine 2.1mg/dL (0.6-1.0) Estimated GFR (Cockcroft-Gault) 23.2 BUN/Creatinine Ratio 19 (6-20) Glucose Level 132mg/dL (70-99) Calcium Level 8.5mg/dL (8.5-10.1) Total Bilirubin 1.2mg/dL (0.2-1.0) Aspartate Amino Transf (AST/SGOT) 59U/L (15-37) Alanine Aminotransferase (ALT/SGPT) 46U/L (14-59) Alkaline Phosphatase 154U/L (46-116) NK-Cmt-B-Type Natriuretic Peptide > 69673nd/mL (0-124) Total Protein 6.5g/dL (6.4-8.2) Albumin 2.5g/dL (3.4-5.0) Albumin/Globulin Ratio 0.6 (1.0-1.7) Test 11/17/16 18:20 11/18/16 05:45 Troponin I Quantitative 4.220ng/mL (0.000-0.055) White Blood Count 19.4x10^3/uL (4.0-11.0) Red Blood Count 4.52x10^6/uL (3.50-5.40) Hemoglobin 11.8g/dL (12.0-15.5) Hematocrit 38.3% (36.0-47.0) Mean Corpuscular Volume 85fL (79-100) Mean Corpuscular Hemoglobin 26pg (25-35) Mean Corpuscular Hemoglobin Concent 31g/dL (31-37) Red Cell Distribution Width 16.8% (11.5-14.5) Platelet Count 206x10^3/uL (140-400) Neutrophils (%) (Auto) 90% (31-73) Lymphocytes (%) (Auto) 3% (24-48) Monocytes (%) (Auto) 6% (0-9) Eosinophils (%) (Auto) 0% (0-3) Basophils (%) (Auto) 0% (0-3) Neutrophils # (Auto) 17.5x10^3uL (1.8-7.7) Lymphocytes # (Auto) 0.6x10^3/uL (1.0-4.8) Monocytes # (Auto) 1.2x10^3/uL (0.0-1.1) Eosinophils # (Auto) 0.0x10^3/uL (0.0-0.7) Basophils # (Auto) 0.1x10^3/uL (0.0-0.2) Sodium Level 147mmol/L (136-145) Potassium Level 3.7mmol/L (3.5-5.1) Chloride Level 108mmol/L (98-107) Carbon Dioxide Level 29mmol/L (21-32) Anion Gap 10 (6-14) Blood Urea Nitrogen 40mg/dL (7-20) Creatinine 1.8mg/dL (0.6-1.0) Estimated GFR (Cockcroft-Gault) 27.7 BUN/Creatinine Ratio 22 (6-20) Glucose Level 128mg/dL (70-99) Calcium Level 8.6mg/dL (8.5-10.1) Phosphorus Level 4.3mg/dL (2.6-4.7) Magnesium Level 2.3mg/dL (1.8-2.4) Total Bilirubin 0.6mg/dL (0.2-1.0) Aspartate Amino Transf (AST/SGOT) 48U/L (15-37) Alanine Aminotransferase (ALT/SGPT) 45U/L (14-59) Alkaline Phosphatase 145U/L (46-116) Total Protein 6.2g/dL (6.4-8.2) Albumin 2.6g/dL (3.4-5.0) Albumin/Globulin Ratio 0.7 (1.0-1.7) Laboratory Tests Test 11/17/16 12:30 11/17/16 14:35 11/17/16 18:20 11/18/16 05:45 Troponin I Quantitative 2.422ng/mL (0.000-0.055) 4.220ng/mL (0.000-0.055) Sodium Level 149mmol/L (136-145) 147mmol/L (136-145) Potassium Level 4.5mmol/L (3.5-5.1) 3.7mmol/L (3.5-5.1) Chloride Level 110mmol/L (98-107) 108mmol/L (98-107) Carbon Dioxide Level 29mmol/L (21-32) 29mmol/L (21-32) Anion Gap 10 (6-14) 10 (6-14) Blood Urea Nitrogen 40mg/dL (7-20) 40mg/dL (7-20) Creatinine 2.1mg/dL (0.6-1.0) 1.8mg/dL (0.6-1.0) Estimated GFR (Cockcroft-Gault) 23.2 27.7 BUN/Creatinine Ratio 19 (6-20) 22 (6-20) Glucose Level 132mg/dL (70-99) 128mg/dL (70-99) Calcium Level 8.5mg/dL (8.5-10.1) 8.6mg/dL (8.5-10.1) Total Bilirubin 1.2mg/dL (0.2-1.0) 0.6mg/dL (0.2-1.0) Aspartate Amino Transf (AST/SGOT) 59U/L (15-37) 48U/L (15-37) Alanine Aminotransferase (ALT/SGPT) 46U/L (14-59) 45U/L (14-59) Alkaline Phosphatase 154U/L (46-116) 145U/L (46-116) WM-Ktf-F-Type Natriuretic Peptide > 02453ez/mL (0-124) Total Protein 6.5g/dL (6.4-8.2) 6.2g/dL (6.4-8.2) Albumin 2.5g/dL (3.4-5.0) 2.6g/dL (3.4-5.0) Albumin/Globulin Ratio 0.6 (1.0-1.7) 0.7 (1.0-1.7) White Blood Count 19.4x10^3/uL (4.0-11.0) Red Blood Count 4.52x10^6/uL (3.50-5.40) Hemoglobin 11.8g/dL (12.0-15.5) Hematocrit 38.3% (36.0-47.0) Mean Corpuscular Volume 85fL (79-100) Mean Corpuscular Hemoglobin 26pg (25-35) Mean Corpuscular Hemoglobin Concent 31g/dL (31-37) Red Cell Distribution Width 16.8% (11.5-14.5) Platelet Count 206x10^3/uL (140-400) Neutrophils (%) (Auto) 90% (31-73) Lymphocytes (%) (Auto) 3% (24-48) Monocytes (%) (Auto) 6% (0-9) Eosinophils (%) (Auto) 0% (0-3) Basophils (%) (Auto) 0% (0-3) Neutrophils # (Auto) 17.5x10^3uL (1.8-7.7) Lymphocytes # (Auto) 0.6x10^3/uL (1.0-4.8) Monocytes # (Auto) 1.2x10^3/uL (0.0-1.1) Eosinophils # (Auto) 0.0x10^3/uL (0.0-0.7) Basophils # (Auto) 0.1x10^3/uL (0.0-0.2) Phosphorus Level 4.3mg/dL (2.6-4.7) Magnesium Level 2.3mg/dL (1.8-2.4) Medications Active Scripts Medications Dose Route/Sig Days Date Category Mexiletine Hcl 200 Mg Capsule 200 Mg PO Q8HRS 11/17/16 Reported Macrobid 100 Mg Capsule (Nitrofurantoin Monohyd/M-Cryst) 100 Mg Capsule 1 Cap PO BID 07/07/16 Rx Acetaminophen 325 Mg Tablet 650 Mg PO PRN Q6HRS PRN 08/09/15 Reported Esperance 10-325 Tablet (Acetaminophen/Hydrocodone Bitart) 1 Each Tablet 1 Tab PO PRN Q6HRS PRN 08/09/15 Reported Gabapentin 300 Mg Capsule 300 Mg PO BID 08/09/15 Reported Diltiazem 24HR Cd (Diltiazem Hcl) 120 Mg Cap.er.24h 120 Mg PO DAILY 08/09/15 Reported Zolpidem Tartrate 5 Mg Tablet 5 Mg PO PRN QHS PRN 08/09/15 Reported Alprazolam 0.5 Mg Tablet 0.5 Mg PO PRN Q8HRS PRN 08/09/15 Reported Advair 250-50 Diskus (Fluticasone/Salmeterol) 1 Each Disk.w.dev 1 Inh IH BID 08/09/15 Reported Capzasin-Hp (Capsaicin) 42.5 Gm Cream..g. 1 Terence TP Q8HRS 08/09/15 Reported Aspir 81 (Aspirin) 81 Mg Tablet.dr 81 Mg PO DAILY08 08/09/15 Reported Klor-Con M20 (Potassium Chloride) 20 Meq Tablet.er 20 Meq PO DAILYWBKFT 07/23/15 Rx Uloric (Febuxostat) 40 Mg Tablet 40 Mg PO DAILY 07/23/15 Rx Colace (Docusate Sodium) 100 Mg Capsule 100 Mg PO DAILY 07/23/15 Rx Eliquis (Apixaban) 5 Mg Tablet 5 Mg PO BID 07/23/15 Rx Cordarone (Amiodarone Hcl) 200 Mg Tablet 200 Mg PO DAILY 07/23/15 Rx Irbesartan 75 Mg Tablet 75 Mg PO DAILY 12/18/14 Reported Lasix (Furosemide) 20 Mg Tablet 20 Mg PO BID 12/18/14 Reported Carvedilol 12.5 Mg Tablet 12.5 Mg PO BIDWMEALS 12/18/14 Reported Fluoxetine Hcl 40 Mg Capsule 40 Mg PO DAILY 12/18/14 Reported Atrovent Hfa (Ipratropium [place]) 12.9 Gm Hfa.aer.ad 2 Puff IH QID 12/18/14 Reported Impression . 1. Acute on chronic respiratory failure secondary to multifactorial etiologies including sepsis and underlying chronic obstructive pulmonary disease with exacerbation. Clinically less likely congestive heart failure, 2. Increased troponin. Suspect non-ST myocardial infarction. 3. Urinary tract infection with sepsis./ gram neg rods in blood 4. Acute on chronic renal failure. 5. Hyperkalemia. 6. Mild protein calorie malnutrition. 7. Influenza is negative. 8. Abnormal chest x-ray with volume loss in the left lower lobe, which appears to be chronic. Plan . 1. Continue with present oxygen. 2. Bronchodilators with DuoNeb. 3. hold steroids 4. Continue broad-spectrum antibiotic. 5. Follow urine cultures./blood cultures 6. cardizem drip per cardiology 7. Follow chest x-ray. 8. The patient is DNR/DNI. Discussed with Dr. Rivers. I have discussed with RN and RT. BRIDGETTE CORONADO MD Nov 18, 2016 11:01
[2016-11-18] MEDS: ANTI-COAG MONITOR BY PHARMACY. MC PRN (11:08)
--- NOTE | 2016-11-18 13:07 | PDOC ---
CARDIO Progress Notes Date and Time Date of Service 11/18/16 Time of Evaluation 1115 Subjective Subjective: No Chest Pain, No Palpitations, Other (awake, alert, feeling better. Breathing improved. Wanting soda) Vitals Vitals Vital Signs Date Time Temp Pulse Resp B/P Pulse Ox O2 Delivery O2 Flow Rate FiO2 11/18/16 11:50 92 Nasal Cannula 5.0 11/18/16 11:00 97 19 122/74 11/18/16 08:00 98.7 98.7 Weight Weight [ ] Input and Output Intake and Output Intake and Output 11/18/16 07:00 Intake Total 3720 ml Output Total 1725 ml Balance 1995 ml Intake Oral 120 ml IV Total 3600 ml Output Urine Total 1325 ml Stool Total 400 ml Laboratory Labs Laboratory Tests Test 11/17/16 14:35 11/17/16 18:20 11/18/16 05:45 Sodium Level 149mmol/L (136-145) 147mmol/L (136-145) Potassium Level 4.5mmol/L (3.5-5.1) 3.7mmol/L (3.5-5.1) Chloride Level 110mmol/L (98-107) 108mmol/L (98-107) Carbon Dioxide Level 29mmol/L (21-32) 29mmol/L (21-32) Anion Gap 10 (6-14) 10 (6-14) Blood Urea Nitrogen 40mg/dL (7-20) 40mg/dL (7-20) Creatinine 2.1mg/dL (0.6-1.0) 1.8mg/dL (0.6-1.0) Estimated GFR (Cockcroft-Gault) 23.2 27.7 BUN/Creatinine Ratio 19 (6-20) 22 (6-20) Glucose Level 132mg/dL (70-99) 128mg/dL (70-99) Calcium Level 8.5mg/dL (8.5-10.1) 8.6mg/dL (8.5-10.1) Total Bilirubin 1.2mg/dL (0.2-1.0) 0.6mg/dL (0.2-1.0) Aspartate Amino Transf (AST/SGOT) 59U/L (15-37) 48U/L (15-37) Alanine Aminotransferase (ALT/SGPT) 46U/L (14-59) 45U/L (14-59) Alkaline Phosphatase 154U/L (46-116) 145U/L (46-116) QM-Klw-P-Type Natriuretic Peptide > 21965xj/mL (0-124) Total Protein 6.5g/dL (6.4-8.2) 6.2g/dL (6.4-8.2) Albumin 2.5g/dL (3.4-5.0) 2.6g/dL (3.4-5.0) Albumin/Globulin Ratio 0.6 (1.0-1.7) 0.7 (1.0-1.7) Troponin I Quantitative 4.220ng/mL (0.000-0.055) White Blood Count 19.4x10^3/uL (4.0-11.0) Red Blood Count 4.52x10^6/uL (3.50-5.40) Hemoglobin 11.8g/dL (12.0-15.5) Hematocrit 38.3% (36.0-47.0) Mean Corpuscular Volume 85fL (79-100) Mean Corpuscular Hemoglobin 26pg (25-35) Mean Corpuscular Hemoglobin Concent 31g/dL (31-37) Red Cell Distribution Width 16.8% (11.5-14.5) Platelet Count 206x10^3/uL (140-400) Neutrophils (%) (Auto) 90% (31-73) Lymphocytes (%) (Auto) 3% (24-48) Monocytes (%) (Auto) 6% (0-9) Eosinophils (%) (Auto) 0% (0-3) Basophils (%) (Auto) 0% (0-3) Neutrophils # (Auto) 17.5x10^3uL (1.8-7.7) Lymphocytes # (Auto) 0.6x10^3/uL (1.0-4.8) Monocytes # (Auto) 1.2x10^3/uL (0.0-1.1) Eosinophils # (Auto) 0.0x10^3/uL (0.0-0.7) Basophils # (Auto) 0.1x10^3/uL (0.0-0.2) Phosphorus Level 4.3mg/dL (2.6-4.7) Magnesium Level 2.3mg/dL (1.8-2.4) Microbiology Micro Microbiology 11/17/16 Blood Culture - Final, Complete Physical Exam HEENT: Neck Supple W Full Motion Chest: Symmetric LUNGS: Other (crackles ) Heart: irregularly irregular, other (tele AFIB with controlled rate) Abdomen: Soft N/T Neurology: alert, follow commands Assessment Assessment 1. NSTEMI peak 4.627 possibly demand ischemia in the setting of PANCHITO and UTI/sepsis but underlying obstructive CAD cannot be ruled out. Discussed risks/benefits of further aggressive ischemic workup versus continued medical management with patient and Dr. Rivers; both would like to continue medical management at this time. 2. Chronic systolic heart failure with ischemic cardiomyopathy improved. repeat echo with LVEF 25-30%. Nt Pro BNP >23967, CXR with vascular congestion. continue IV diuresis with monitoring of renal function resume ARB- d/w nephrology 3. Acute on chronic respiratory failure with AE COPD multifactorial, per pulm 4. PAFIB with RVR likely secondary to UTI/sepsis rate presently controlled with BB. Med rec incorrect; verified meds with [place] med list and made changes to med rec. resume Eliquis for stroke prophylaxis; patient taking oral now. 5. UTI/sepsis BC with gram neg. rods 6. h/o Ventricular tachycardia: s/p AICD no acute events overnight continue Mexiletine and BB 7. CAD PCI/stents to RCA, LAD, and LCX continue secondary prevention 8. HTN controlled 9. HLP check lipids 10. protein malnutrition ROSSI KEY APRN Nov 18, 2016 13:07
[2016-11-18] MEDS: METOPROLOL SUCC 24HR ER 25 MG TAB.ER.24H. PO SCH (13:45)
[2016-11-18] MEDS ORDERED: METO25TA4 PO (13:49)
[2016-11-18] MEDS ORDERED: METO5TAB4 PO ×2 (13:52→13:53)
[2016-11-18] MEDS ORDERED: NITR1PAT9 TD (13:52)
[2016-11-18] MEDS ORDERED: SPIR25TA3 PO (13:52)
[2016-11-18] MEDS ORDERED: POTA10CA PO (13:52)
[2016-11-18] MEDS: LOSARTAN POTASSIUM 25 MG TABLET. PO SCH (14:00)
[2016-11-18] MEDS ORDERED: LORA-434 PO (15:58)
[2016-11-18] MEDS ORDERED: OLAN5TAB3 PO (15:58)
[2016-11-18] MEDS ORDERED: DIVA500T4 PO (15:58)
[2016-11-18] MEDS ORDERED: ESZO3TAB9 PO (15:58)
[2016-11-18] MEDS ORDERED: FURO-68 PO (15:58)
[2016-11-18] MEDS ORDERED: DIGOXIN 500 MCG/2 ML AMPUL. IV ONE (19:15)
[2016-11-18] MEDS ORDERED: DILTIAZEM IV PUSH 25 MG/5 ML VIAL. IVP ONE (20:00)
[2016-11-18] MEDS: ZOLPIDEM 5 MG TABLET. PO PRN (21:08)
[2016-11-18] MEDS: APIXABAN 5 MG TABLET. PO SCH (21:08)
[2016-11-19] VITALS (7 sets, daily range): BP systolic 97–127; BP diastolic 62–67
[2016-11-19] MEDS: ACETAMINOPHEN 325 MG TABLET. PO PRN ×2 (00:01→09:38)
[2016-11-19] MEDS: MEROPENEM 500 MG in IV NORMAL SALINE 50ML 50 ML IV SCH ×3 (05:35→21:27)
[2016-11-19] MEDS: MEXILETINE HCL 200 MG CAPSULE PO SCH ×3 (05:35→21:35)
[2016-11-19] MEDS: IPRATRPIUM/ALBUTEROL 0.5/2.5MG 3 ML NEBU. NEB SCH ×4 (07:07→20:03)
[2016-11-19] MEDS: BUDESONIDE 0.5 MG/2 ML NEBU NEB SCH ×2 (07:08→20:03)
--- NOTE | 2016-11-19 07:17 | PDOC ---
SUBJECTIVE ROS PANCHITO/ CKD III Doing same overall. Some back pain CVS: no Orthopnea, no CP RESP: no SOB, no FRANKLIN GI: min Nausea, no Vomiting : no Dysuria, no Urgency OBJECTIVE Vital Signs Vital Signs Date Time Temp Pulse Resp B/P Pulse Ox O2 Delivery O2 Flow Rate FiO2 11/19/16 07:10 94 Nasal Cannula 5.0 11/19/16 04:00 98.6 96 37 111/66 98.6 I & 0 Intake and Output 11/19/16 07:00 Intake Total 1484 ml Output Total 1590 ml Balance -106 ml Intake Oral 1030 ml IV Total 454 ml Output Urine Total 1340 ml Stool Total 250 ml PHYSICAL EXAM Physical Exam General Appearance: Awake more Alert Oriented x 2-3 In no Distress Eyes: Pupils reactive overall Sclera and Conjunctiva Normal EN: No EN Drainage Mucous Memb. dryish Neck: no JVD min JVP Supple no Thyromegaly CVS: S1 S2 sys Murmur No Gallop No Rub Tr Edema Resp: no Rales no Rhonchi no Acc. Muscle use GI: BS + ve NO Bruit Non Tender Non Distended Ostomy bag in palce : no CVA tenderness; no Suprapubic Tenderness SKIN: no Rashes Breast Exam deferred ASSESSMENT/PLAN PANCHITO/ ATN: vs pyelonephritis. Current FLuid and E-lyte status does not necessitate emergent need for Dialysis. Will re-evaluate for Dialysis in am. Worsening Cmypoathy (as noted on ECHO) - watch off of IVF (given for "Sepsis") . Now Lasix as being administered; Resume ARB ? Sepsis due to UTI/ Pyelo - GNR on cultures, defer Abx to Dr Katz; hemodynamcis are acceptable ? Some CKD III as noted per previous trend (? ASVDz associated +/- NSAIDs use in past) - Worsening Cmyopahty and /or Pyelo may be contributing too UTI with Hematuria - await Cx, Microscopic hematuria - suspect due to Cystitis but will recheck renal US shows stable Renal Cyst Renal Cyst - stable Proteinuria - suspect due to UTI - will need f/up as OP ^Na - she is thirsty and will allow for Po intake once she can safely swallow HTN: Current BP reviewed. Defer to Cardiology to optimize from Cmyopahty standpoint. Restarted ARB as she was on it as OP. May need to accept some Azotemia - Benefits > Risk of ^ creat - as long as K can be managed/ Monitored COMMENT/RELEVANT DATA Meds Current Medications Medications (Trade) Dose Ordered Sig/Carrie Start Time Stop Time Status Last Admin Dose Admin Acetaminophen (Tylenol) 650 mg PRN Q6HRS PRN 11/17/16 08:30 11/19/16 00:01 650 MG Albuterol Sulfate (Ventolin Neb Soln) 2.5 mg PRN Q4HRS PRN 11/17/16 08:30 Albuterol/ Ipratropium (Duoneb) 3 ml RTQID 11/17/16 12:00 11/19/16 07:07 3 ML Amiodarone HCl (Cordarone) 200 mg DAILY 11/17/16 09:00 11/18/16 11:49 DC 11/18/16 08:34 200 MG Apixaban (Eliquis) 5 mg BID 11/18/16 21:00 11/18/16 21:08 5 MG Aspirin (Ecotrin) 81 mg DAILY08 11/17/16 09:00 11/18/16 08:34 81 MG Budesonide 0.5 mg 0.5 mg RTBID 11/17/16 09:00 11/19/16 07:08 0.5 MG Calcium Gluconate 1,000 mg 1X ONCE 11/17/16 06:30 11/17/16 06:31 DC 11/17/16 06:55 1,000 MG Carvedilol (Coreg) 12.5 mg BIDWMEALS 11/17/16 09:00 11/18/16 13:48 DC Dextrose 25 gm 1X ONCE 11/17/16 06:30 11/17/16 06:31 DC 11/17/16 06:58 25 GM Digoxin (Lanoxin) 250 mcg 1X ONCE 11/17/16 12:30 11/17/16 12:36 DC Digoxin 250 mcg 250 mcg 1X ONCE 11/18/16 19:15 11/18/16 19:16 DC 11/18/16 19:21 250 MCG Diltiazem HCl (Cardizem) 5 mg 1X ONCE 11/18/16 20:00 11/18/16 20:01 DC 11/18/16 19:57 5 MG Diltiazem HCl/ Dextrose (Cardizem) 125 ml @ 0 mls/hr CONT PRN 11/18/16 19:45 11/18/16 19:57 5 MLS/HR Enoxaparin Sodium (Lovenox 80mg Syringe) 80 mg DAILY 11/17/16 14:00 11/18/16 12:46 DC 11/18/16 08:33 80 MG Enoxaparin Sodium (Lovenox Per Pharmacy Treatment Dosing) 1 each PRN DAILY PRN 11/17/16 15:30 11/18/16 12:46 DC Fluoxetine HCl (Prozac) 40 mg DAILY 11/17/16 09:00 11/18/16 08:34 40 MG Furosemide (Lasix) 40 mg DAILY 11/17/16 09:00 11/18/16 08:33 40 MG Gabapentin (Neurontin) 300 mg BID 11/17/16 09:00 11/18/16 21:08 300 MG Info (Anti-Coagulation Monitoring By Pharmacy) 1 each PRN DAILY PRN 11/17/16 08:45 11/18/16 11:08 1 EACH Insulin Human Regular (Novolin R Vial) 10 unit 1X ONCE 11/17/16 06:30 11/17/16 06:31 DC 11/17/16 06:57 10 UNIT Levofloxacin/ Dextrose (LEVAQUIN 750mg PREMIX) 150 ml @ 100 mls/hr Q48H 11/17/16 07:00 11/17/16 10:38 DC Levofloxacin/ Dextrose (Levaquin Per Pharmacy) 1 each PRN DAILY PRN 11/17/16 06:15 11/17/16 21:00 DC Linezolid (Zyvox Premix) 300 ml @ 300 mls/hr Q12HR 11/17/16 21:00 11/18/16 21:08 300 MLS/HR Losartan Potassium (Cozaar) 25 mg DAILY 11/18/16 14:00 Magnesium Sulfate/ Dextrose 50 ml @ 25 mls/hr PRN DAILY PRN 11/17/16 09:30 Meropenem 500 mg/ Sodium Chloride 50 ml @ 100 mls/hr Q8HRS 11/17/16 14:00 11/19/16 05:35 100 MLS/HR Metolazone (Zaroxolyn) 5 mg Q48H 11/19/16 09:00 Metoprolol Succinate (Toprol Xl) 25 mg DAILY 11/18/16 13:45 Mexiletine HCl (Mexitil) 200 mg Q8HRS 11/17/16 12:00 11/19/16 05:35 200 MG Non-Formulary Medication 1 inh BID 11/17/16 09:00 11/17/16 09:00 DC Ondansetron HCl 4 mg 4 mg PRN Q8HRS PRN 11/17/16 06:15 11/18/16 06:14 DC Piperacillin Sod/ Tazobactam Sod 2.25 gm/Sodium Chloride 50 ml @ 100 mls/hr Q6HRS 11/17/16 06:30 11/17/16 10:38 DC 11/17/16 07:04 100 MLS/HR Piperacillin Sod/ Tazobactam Sod 1 each 1 each PRN DAILY PRN 11/17/16 06:15 11/17/16 10:38 DC Potassium Chloride (Klor-Con) 10 meq Q48H 11/19/16 08:00 Sodium Polystyrene Sulfonate (Kayexalate) 30 gm 1X ONCE 11/17/16 06:30 11/17/16 06:31 DC 11/17/16 06:58 30 GM Sodium Bicarbonate 50 meq 1X ONCE 11/17/16 06:30 11/17/16 06:31 DC 11/17/16 06:56 50 MEQ Sodium Chloride (Iv Sodium Chloride 0.9% 1000ml Bag) 1,000 ml @ 125 mls/hr Q8H 11/17/16 06:12 11/18/16 06:11 DC 11/17/16 20:34 125 MLS/HR Vancomycin HCl (Vanco Per Pharmacy) 1 each PRN DAILY PRN 11/17/16 06:15 11/17/16 10:38 DC 11/17/16 09:32 1 EACH Vancomycin HCl 1 each 1 each 1X ONCE 11/19/16 07:30 11/19/16 07:30 DC Vancomycin HCl 2 gm/Sodium Chloride 500 ml @ 250 mls/hr 1X ONCE 11/17/16 07:00 11/17/16 09:04 DC 11/17/16 07:52 250 MLS/HR Vancomycin HCl/ Sodium Chloride (Iv Sodium Chloride 0.9% 250ml) 250 ml @ 167 mls/hr Q24H 11/18/16 08:00 11/18/16 08:00 DC Zolpidem Tartrate (Ambien) 5 mg PRN QHS PRN 11/17/16 08:30 11/18/16 21:08 5 MG Lab Laboratory Tests Test 11/19/16 04:55 Magnesium Level 1.9mg/dL (1.8-2.4) DORETHA KASPER MD Nov 19, 2016 07:17
--- NOTE | 2016-11-19 07:35 | PDOC ---
Infectious Disease Note Subjective Subjective Doing better but legs feel heavy. ROS ROS GEN: Denies fevers, chills, sweats HEENT: Denies blurred vision, sore throat CV: Denies chest pain RESP: Denies shortness of air, cough GI: Denies n/v/d NEURO: Denies confusion, dizziness MSK: Denies weakness, joint pain/swelling Vital Sign Vital Signs Vital Signs Date Time Temp Pulse Resp B/P Pulse Ox O2 Delivery O2 Flow Rate FiO2 11/19/16 07:10 94 Nasal Cannula 5.0 11/19/16 04:00 98.6 96 37 111/66 98.6 Physical Exam PHYSICAL EXAM GENERAL: NAD, Alert. looks better HEENT: PERRL, OC/OP- clear NECK: Supple, no JVD, no LN LUNGS: Clear HEART: S1S2, no gallop, no murmur ABD: Soft, NT, no organomegaly, no rebound, obese Esparza EXT: 1 plus edema, no cyanosis [employer]ING [employer] INST[employer]ER: Alert, more oriented no focal neurologic deficit SKIN: No rash IV: ok Labs Lab Laboratory Tests Test 11/19/16 04:55 Magnesium Level 1.9mg/dL (1.8-2.4) Objective Assessment GNR Sepsis - POA 11/17 - better. fever Leukocytosis - some better ? NSTEMI Afib now on gtt Acute Encephalopathy - improved PANCHITO - some better GNR UTI -POA Hyperkalemia Plan Plan of Care Cont Meropenem - clinically better D/c Zyvox F/u labs/LFTs this am and cults HIPOLITO GARCIA MD Nov 19, 2016 07:35
[2016-11-19 07:37] LABS: BASO % 0 % (0-3); EOS % 0 % (0-3); HEMATOCRIT 36.7 % (36.0-47.0); HEMOGLOBIN 11.3 g/dL (12.0-15.5); LYMPH % 8 % (24-48); MEAN CORPUSCULAR HEMOGLOBIN 26 pg (25-35); MEAN CORPUSCULAR HGB CONC 31 g/dL (31-37); MEAN CORPUSCULAR VOLUME 84 fL (79-100); MONO % 13 % (0-9); NEUT % 79 % (31-73); PLATELET COUNT 215 x10^3/uL (140-400); RED BLOOD COUNT 4.37 x10^6/uL (3.50-5.40); RED CELL DISTRIBUTION WIDTH 16.4 % (11.5-14.5)
[2016-11-19 07:56] LABS: ALBUMIN 2.3 g/dL (3.4-5.0); CALCIUM 8.5 mg/dL (8.5-10.1); CREATININE 1.6 mg/dL (0.6-1.0); GFR 31.7; POTASSIUM 3.2 mmol/L (3.5-5.1)
--- NOTE | 2016-11-19 08:26 | PDOC ---
SUBJECTIVE Subjective Continues to feel better. Denies any significant shortness of breath. Still little bit of a cough. Has been able to eat some. No diarrhea. She is having some pain in her lower back. OBJECTIVE Vital Signs Vital Signs Date Time Temp Pulse Resp B/P Pulse Ox O2 Delivery O2 Flow Rate FiO2 11/19/16 07:10 94 Nasal Cannula 5.0 11/19/16 04:00 98.6 96 37 111/66 96 Nasal Cannula 4.0 98.6 11/19/16 00:00 100.2 106 31 104/62 93 Nasal Cannula 4.0 100.2 11/18/16 20:00 Nasal Cannula 4.0 11/18/16 20:00 99.2 136 36 135/75 90 Nasal Cannula 4.0 99.2 11/18/16 19:57 142 106/83 11/18/16 19:49 92 Nasal Cannula 4.0 11/18/16 19:21 136 139/75 11/18/16 16:00 100.2 117 36 106/33 94 Nasal Cannula 3.0 100.2 11/18/16 15:15 96 Nasal Cannula 5.0 11/18/16 14:00 105 95/66 11/18/16 13:45 105 95/66 11/18/16 11:50 92 Nasal Cannula 5.0 11/18/16 11:00 97 19 122/74 96 Nasal Cannula 4.0 11/18/16 10:00 89 25 136/86 95 Nasal Cannula 4.0 11/18/16 09:00 104 19 131/64 95 Nasal Cannula 5.0 11/18/16 08:34 111 131/66 I & O Intake and Output 11/19/16 07:00 Intake Total 1484 ml Output Total 1590 ml Balance -106 ml Intake Oral 1030 ml IV Total 454 ml Output Urine Total 1340 ml Stool Total 250 ml PHYSICAL EXAM Physical Exam General: No acute distress. Sitting in the chair. Nasal cannula oxygen on. Mental status: Alert and appears at baseline orientation with some confusion Chest: Air movement: Decreased. Auscultation: Rare wheeze relatively clear. Cardiovascular: Rate: Controlled. Rhythm: Occasional irregular beats. Murmur : none. Abdomen: Bowel sounds: normal. Soft. Nondistended. Tenderness: nontender to palpation. No guarding. No rebound. Extremities: Trace lower extremity edema. ASSESSMENT/PLAN Assessment/Plan 1. Sepsis due to UTI: Escherichia coli. Multiply resistant. Continue antibiotics per infectious disease she does have some low-grade temperatures. 2. Acute respiratory failure: Appears to be improving. Probably due to sepsis. Continue per pulmonology. 2. Hyperkalemia: Resolved with Lasix. Continue per nephrology. 3. Acute renal failure: Making some improvement. Continue per nephrology. 4. COPD with probable exacerbation: Continue nebulizer treatments. Continue per pulmonology 5. CHF, acute on chronic: Continue per cardiology. Possibly due to recent acute [place]. 6. NSTEMI: Continue per cardiology. Medication adjustment per their recommendations 7. Intermittent cough: Probably related to COPD. Speech therapy recommendations noted. 8. A. fib with RVR: Continue per cardiology with rate control medications. 9. Cardiomyopathy: Appears to be worsened on current echo. Continue per cardiology with maximizing medication treatment. Plan to hold off on doing catheterization at this time unless the patient deteriorates. Problems: COMMENT Lab Laboratory Tests Test 11/19/16 04:55 White Blood Count 12.0x10^3/uL (4.0-11.0) Red Blood Count 4.37x10^6/uL (3.50-5.40) Hemoglobin 11.3g/dL (12.0-15.5) Hematocrit 36.7% (36.0-47.0) Mean Corpuscular Volume 84fL (79-100) Mean Corpuscular Hemoglobin 26pg (25-35) Mean Corpuscular Hemoglobin Concent 31g/dL (31-37) Red Cell Distribution Width 16.4% (11.5-14.5) Platelet Count 215x10^3/uL (140-400) Neutrophils (%) (Auto) 79% (31-73) Lymphocytes (%) (Auto) 8% (24-48) Monocytes (%) (Auto) 13% (0-9) Eosinophils (%) (Auto) 0% (0-3) Basophils (%) (Auto) 0% (0-3) Neutrophils # (Auto) 9.5x10^3uL (1.8-7.7) Lymphocytes # (Auto) 1.0x10^3/uL (1.0-4.8) Monocytes # (Auto) 1.6x10^3/uL (0.0-1.1) Eosinophils # (Auto) 0.0x10^3/uL (0.0-0.7) Basophils # (Auto) 0.0x10^3/uL (0.0-0.2) Sodium Level 145mmol/L (136-145) Potassium Level 3.2mmol/L (3.5-5.1) Chloride Level 104mmol/L (98-107) Carbon Dioxide Level 30mmol/L (21-32) Anion Gap 11 (6-14) Blood Urea Nitrogen 34mg/dL (7-20) Creatinine 1.6mg/dL (0.6-1.0) Estimated GFR (Cockcroft-Gault) 31.7 Glucose Level 144mg/dL (70-99) Calcium Level 8.5mg/dL (8.5-10.1) Phosphorus Level 3.0mg/dL (2.6-4.7) Magnesium Level 1.9mg/dL (1.8-2.4) Albumin 2.3g/dL (3.4-5.0) KENDRA MANSFIELD MD Nov 19, 2016 08:25
[2016-11-19 08:40] LABS: DIRECT BILIRUBIN 0.2 mg/dL (0.0-0.2); TOTAL BILIRUBIN 0.6 mg/dL (0.2-1.0); TOTAL PROTEIN 6.6 g/dL (6.4-8.2)
[2016-11-19 08:41] LABS: ALBUMIN 2.3 g/dL (3.4-5.0)
--- NOTE | 2016-11-19 08:43 | PDOC ---
ROSSI KEY [employer]S OVERSEER 11/19/16 0842: CARDIO Progress Notes Date and Time Date of Service 11/19/16 Time of Evaluation 0871 Subjective Subjective: No Chest Pain, No Palpitations, Other (hands swollen, feeling better overall) Vitals Vitals Vital Signs Date Time Temp Pulse Resp B/P Pulse Ox O2 Delivery O2 Flow Rate FiO2 11/19/16 07:10 94 Nasal Cannula 5.0 11/19/16 04:00 98.6 96 37 111/66 98.6 Weight Weight [ ] Input and Output Intake and Output Intake and Output 11/19/16 07:00 Intake Total 1484 ml Output Total 1590 ml Balance -106 ml Intake Oral 1030 ml IV Total 454 ml Output Urine Total 1340 ml Stool Total 250 ml Laboratory Labs Laboratory Tests Test 11/19/16 04:55 White Blood Count 12.0x10^3/uL (4.0-11.0) Red Blood Count 4.37x10^6/uL (3.50-5.40) Hemoglobin 11.3g/dL (12.0-15.5) Hematocrit 36.7% (36.0-47.0) Mean Corpuscular Volume 84fL (79-100) Mean Corpuscular Hemoglobin 26pg (25-35) Mean Corpuscular Hemoglobin Concent 31g/dL (31-37) Red Cell Distribution Width 16.4% (11.5-14.5) Platelet Count 215x10^3/uL (140-400) Neutrophils (%) (Auto) 79% (31-73) Lymphocytes (%) (Auto) 8% (24-48) Monocytes (%) (Auto) 13% (0-9) Eosinophils (%) (Auto) 0% (0-3) Basophils (%) (Auto) 0% (0-3) Neutrophils # (Auto) 9.5x10^3uL (1.8-7.7) Lymphocytes # (Auto) 1.0x10^3/uL (1.0-4.8) Monocytes # (Auto) 1.6x10^3/uL (0.0-1.1) Eosinophils # (Auto) 0.0x10^3/uL (0.0-0.7) Basophils # (Auto) 0.0x10^3/uL (0.0-0.2) Sodium Level 145mmol/L (136-145) Potassium Level 3.2mmol/L (3.5-5.1) Chloride Level 104mmol/L (98-107) Carbon Dioxide Level 30mmol/L (21-32) Anion Gap 11 (6-14) Blood Urea Nitrogen 34mg/dL (7-20) Creatinine 1.6mg/dL (0.6-1.0) Estimated GFR (Cockcroft-Gault) 31.7 Glucose Level 144mg/dL (70-99) Calcium Level 8.5mg/dL (8.5-10.1) Phosphorus Level 3.0mg/dL (2.6-4.7) Magnesium Level 1.9mg/dL (1.8-2.4) Total Bilirubin 0.6mg/dL (0.2-1.0) Direct Bilirubin 0.2mg/dL (0.0-0.2) Aspartate Amino Transf (AST/SGOT) 31U/L (15-37) Alanine Aminotransferase (ALT/SGPT) 42U/L (14-59) Alkaline Phosphatase 122U/L (46-116) Total Protein 6.6g/dL (6.4-8.2) Albumin 2.3g/dL (3.4-5.0) Microbiology Micro Microbiology 11/17/16 Blood Culture - Final, Complete 11/17/16 Urine Culture - Preliminary, Resulted 11/17/16 Urine Culture Result 1 (VIC) - Preliminary, Resulted Physical Exam HEENT: Neck Supple W Full Motion Chest: Symmetric LUNGS: Other (bibasilar crackles ) Heart: S1S2, irregularly irregular, other (tele AFIB with controlled rate. 2/6 systolic murmur ) Abdomen: Soft N/T Extremities: 2+ Dorsalis Pedis, Other (1+ bilateral hand and FA edema. No LE edema ) Neurology: alert, oriented, follow commands, other Assessment Assessment 1. NSTEMI peak 4.627 possibly demand ischemia in the setting of PANCHITO and UTI/sepsis continue medical management as patient/family wishes 2. Chronic systolic heart failure with ischemic cardiomyopathy improved LV EF 25-30%. Home metolazone resumed continue diuresis with monitoring of renal function ARB for optimization- d/w nephrology. Hold for hypotension 3. Acute on chronic respiratory failure with AE COPD multifactorial, per pulm 4. PAFIB episodes or RVR overnight- Cardizem gtt initiated. discontinued around 2am. BB held yesterday evening due to hypotension rate presently controlled; continue BB with BP parameters Eliquis for stroke prophylaxis 5. UTI/sepsis BC + gram neg. rods per ID 6. h/o Ventricular tachycardia: s/p AICD no acute events overnight continue Mexiletine and BB 7. CAD PCI/stents to RCA, LAD, and LCX stable. CP free. continue secondary prevention 8. HTN low-normotension 9. HLP LDL 85 10. protein malnutrition CODIE WEEKS MD 11/19/16 1614: CARDIO Progress Notes Assessment Assessment Patient seen and examined. Agree with TRANSPORTATION PLANNER's assessment and plan. Non-STEMI most probably secondary to demand ischemia. CAD status appears stable overall. Chronic systolic heart failure well compensated. Continue current treatment for UTI/sepsis. ROSSI KEY APRN Nov 19, 2016 08:42 CODIE WEEKS MD Nov 19, 2016 16:14
[2016-11-19] MEDS ORDERED: POTASSIUM CHLORIDE 20 MEQ TABLET.ER. PO ONE (08:45)
[2016-11-19] MEDS: LOSARTAN POTASSIUM 25 MG TABLET. PO SCH (09:00)
[2016-11-19] MEDS: FLUOXETINE HCL 20 MG CAPSULE PO SCH (09:30)
[2016-11-19] MEDS: METOPROLOL SUCC 24HR ER 25 MG TAB.ER.24H. PO SCH (09:36)
[2016-11-19] MEDS: APIXABAN 5 MG TABLET. PO SCH ×2 (09:36→21:22)
[2016-11-19] MEDS: FUROSEMIDE 40 MG/4 ML VIAL IVP SCH (09:37)
[2016-11-19] MEDS: ASPIRIN ENTERIC COATED 81 MG TABLET.DR. PO SCH (09:37)
[2016-11-19] MEDS: POTASSIUM CHLORIDE 10 MEQ TABLET.ER. PO SCH (09:37)
[2016-11-19] MEDS: GABAPENTIN 300 MG CAPSULE. PO SCH ×2 (09:37→21:22)
[2016-11-19] MEDS: METOLAZONE 2.5 MG TABLET PO SCH (09:37)
[2016-11-19] MEDS: ANTI-COAG MONITOR BY PHARMACY. MC PRN (10:02)
--- NOTE | 2016-11-19 10:37 | PDOC ---
PULMONARY PROGRESS NOTES Subjective feels better MS improved Vitals Vital Signs Date Time Temp Pulse Resp B/P Pulse Ox O2 Delivery O2 Flow Rate FiO2 11/19/16 09:36 95 108/66 11/19/16 08:00 Nasal Cannula 4.0 11/19/16 08:00 98.8 20 96 98.8 General: Alert, No acute distress HEENT: Other Lungs: Other (few rhonchi) Cardiovascular: S1 Abdomen: Soft Neuro Exam: Alert Extremities: No Edema Skin: Warm Labs Laboratory Tests Test 11/17/16 12:30 11/17/16 14:35 11/17/16 18:20 11/18/16 05:45 Troponin I Quantitative 2.422ng/mL (0.000-0.055) 4.220ng/mL (0.000-0.055) Sodium Level 149mmol/L (136-145) 147mmol/L (136-145) Potassium Level 4.5mmol/L (3.5-5.1) 3.7mmol/L (3.5-5.1) Chloride Level 110mmol/L (98-107) 108mmol/L (98-107) Carbon Dioxide Level 29mmol/L (21-32) 29mmol/L (21-32) Anion Gap 10 (6-14) 10 (6-14) Blood Urea Nitrogen 40mg/dL (7-20) 40mg/dL (7-20) Creatinine 2.1mg/dL (0.6-1.0) 1.8mg/dL (0.6-1.0) Estimated GFR (Cockcroft-Gault) 23.2 27.7 BUN/Creatinine Ratio 19 (6-20) 22 (6-20) Glucose Level 132mg/dL (70-99) 128mg/dL (70-99) Calcium Level 8.5mg/dL (8.5-10.1) 8.6mg/dL (8.5-10.1) Total Bilirubin 1.2mg/dL (0.2-1.0) 0.6mg/dL (0.2-1.0) Aspartate Amino Transf (AST/SGOT) 59U/L (15-37) 48U/L (15-37) Alanine Aminotransferase (ALT/SGPT) 46U/L (14-59) 45U/L (14-59) Alkaline Phosphatase 154U/L (46-116) 145U/L (46-116) NF-Ytv-O-Type Natriuretic Peptide > 30756le/mL (0-124) Total Protein 6.5g/dL (6.4-8.2) 6.2g/dL (6.4-8.2) Albumin 2.5g/dL (3.4-5.0) 2.6g/dL (3.4-5.0) Albumin/Globulin Ratio 0.6 (1.0-1.7) 0.7 (1.0-1.7) White Blood Count 19.4x10^3/uL (4.0-11.0) Red Blood Count 4.52x10^6/uL (3.50-5.40) Hemoglobin 11.8g/dL (12.0-15.5) Hematocrit 38.3% (36.0-47.0) Mean Corpuscular Volume 85fL (79-100) Mean Corpuscular Hemoglobin 26pg (25-35) Mean Corpuscular Hemoglobin Concent 31g/dL (31-37) Red Cell Distribution Width 16.8% (11.5-14.5) Platelet Count 206x10^3/uL (140-400) Neutrophils (%) (Auto) 90% (31-73) Lymphocytes (%) (Auto) 3% (24-48) Monocytes (%) (Auto) 6% (0-9) Eosinophils (%) (Auto) 0% (0-3) Basophils (%) (Auto) 0% (0-3) Neutrophils # (Auto) 17.5x10^3uL (1.8-7.7) Lymphocytes # (Auto) 0.6x10^3/uL (1.0-4.8) Monocytes # (Auto) 1.2x10^3/uL (0.0-1.1) Eosinophils # (Auto) 0.0x10^3/uL (0.0-0.7) Basophils # (Auto) 0.1x10^3/uL (0.0-0.2) Phosphorus Level 4.3mg/dL (2.6-4.7) Magnesium Level 2.3mg/dL (1.8-2.4) Triglycerides Level 101mg/dL (0-150) Cholesterol Level 131mg/dL (0-200) LDL Cholesterol, Calculated 85mg/dL (0-100) VLDL Cholesterol, Calculated 20mg/dL (0-40) HDL Cholesterol 26mg/dL (40-60) Cholesterol/HDL Ratio 5.0 Test 11/19/16 04:55 White Blood Count 12.0x10^3/uL (4.0-11.0) Red Blood Count 4.37x10^6/uL (3.50-5.40) Hemoglobin 11.3g/dL (12.0-15.5) Hematocrit 36.7% (36.0-47.0) Mean Corpuscular Volume 84fL (79-100) Mean Corpuscular Hemoglobin 26pg (25-35) Mean Corpuscular Hemoglobin Concent 31g/dL (31-37) Red Cell Distribution Width 16.4% (11.5-14.5) Platelet Count 215x10^3/uL (140-400) Neutrophils (%) (Auto) 79% (31-73) Lymphocytes (%) (Auto) 8% (24-48) Monocytes (%) (Auto) 13% (0-9) Eosinophils (%) (Auto) 0% (0-3) Basophils (%) (Auto) 0% (0-3) Neutrophils # (Auto) 9.5x10^3uL (1.8-7.7) Lymphocytes # (Auto) 1.0x10^3/uL (1.0-4.8) Monocytes # (Auto) 1.6x10^3/uL (0.0-1.1) Eosinophils # (Auto) 0.0x10^3/uL (0.0-0.7) Basophils # (Auto) 0.0x10^3/uL (0.0-0.2) Sodium Level 145mmol/L (136-145) Potassium Level 3.2mmol/L (3.5-5.1) Chloride Level 104mmol/L (98-107) Carbon Dioxide Level 30mmol/L (21-32) Anion Gap 11 (6-14) Blood Urea Nitrogen 34mg/dL (7-20) Creatinine 1.6mg/dL (0.6-1.0) Estimated GFR (Cockcroft-Gault) 31.7 Glucose Level 144mg/dL (70-99) Calcium Level 8.5mg/dL (8.5-10.1) Phosphorus Level 3.0mg/dL (2.6-4.7) Magnesium Level 1.9mg/dL (1.8-2.4) Total Bilirubin 0.6mg/dL (0.2-1.0) Direct Bilirubin 0.2mg/dL (0.0-0.2) Aspartate Amino Transf (AST/SGOT) 31U/L (15-37) Alanine Aminotransferase (ALT/SGPT) 42U/L (14-59) Alkaline Phosphatase 122U/L (46-116) Total Protein 6.6g/dL (6.4-8.2) Albumin 2.3g/dL (3.4-5.0) Laboratory Tests Test 11/19/16 04:55 White Blood Count 12.0x10^3/uL (4.0-11.0) Red Blood Count 4.37x10^6/uL (3.50-5.40) Hemoglobin 11.3g/dL (12.0-15.5) Hematocrit 36.7% (36.0-47.0) Mean Corpuscular Volume 84fL (79-100) Mean Corpuscular Hemoglobin 26pg (25-35) Mean Corpuscular Hemoglobin Concent 31g/dL (31-37) Red Cell Distribution Width 16.4% (11.5-14.5) Platelet Count 215x10^3/uL (140-400) Neutrophils (%) (Auto) 79% (31-73) Lymphocytes (%) (Auto) 8% (24-48) Monocytes (%) (Auto) 13% (0-9) Eosinophils (%) (Auto) 0% (0-3) Basophils (%) (Auto) 0% (0-3) Neutrophils # (Auto) 9.5x10^3uL (1.8-7.7) Lymphocytes # (Auto) 1.0x10^3/uL (1.0-4.8) Monocytes # (Auto) 1.6x10^3/uL (0.0-1.1) Eosinophils # (Auto) 0.0x10^3/uL (0.0-0.7) Basophils # (Auto) 0.0x10^3/uL (0.0-0.2) Sodium Level 145mmol/L (136-145) Potassium Level 3.2mmol/L (3.5-5.1) Chloride Level 104mmol/L (98-107) Carbon Dioxide Level 30mmol/L (21-32) Anion Gap 11 (6-14) Blood Urea Nitrogen 34mg/dL (7-20) Creatinine 1.6mg/dL (0.6-1.0) Estimated GFR (Cockcroft-Gault) 31.7 Glucose Level 144mg/dL (70-99) Calcium Level 8.5mg/dL (8.5-10.1) Phosphorus Level 3.0mg/dL (2.6-4.7) Magnesium Level 1.9mg/dL (1.8-2.4) Total Bilirubin 0.6mg/dL (0.2-1.0) Direct Bilirubin 0.2mg/dL (0.0-0.2) Aspartate Amino Transf (AST/SGOT) 31U/L (15-37) Alanine Aminotransferase (ALT/SGPT) 42U/L (14-59) Alkaline Phosphatase 122U/L (46-116) Total Protein 6.6g/dL (6.4-8.2) Albumin 2.3g/dL (3.4-5.0) Medications Active Scripts Medications Dose Route/Sig Days Date Category Mexiletine Hcl 200 Mg Capsule 200 Mg PO Q8HRS 11/17/16 Reported Macrobid 100 Mg Capsule (Nitrofurantoin Monohyd/M-Cryst) 100 Mg Capsule 1 Cap PO BID 07/07/16 Rx Acetaminophen 325 Mg Tablet 650 Mg PO PRN Q6HRS PRN 08/09/15 Reported [place]hart 10-325 Tablet (Acetaminophen/Hydrocodone Bitart) 1 Each Tablet 1 Tab PO PRN Q6HRS PRN 08/09/15 Reported Gabapentin 300 Mg Capsule 300 Mg PO BID 08/09/15 Reported Diltiazem 24HR Cd (Diltiazem Hcl) 120 Mg Cap.er.24h 120 Mg PO DAILY 08/09/15 Reported Zolpidem Tartrate 5 Mg Tablet 5 Mg PO PRN QHS PRN 08/09/15 Reported Alprazolam 0.5 Mg Tablet 0.5 Mg PO PRN Q8HRS PRN 08/09/15 Reported Advair 250-50 Diskus (Fluticasone/Salmeterol) 1 Each Disk.w.dev 1 Inh IH BID 08/09/15 Reported Capzasin-Hp (Capsaicin) 42.5 Gm Cream..g. 1 Terence TP Q8HRS 08/09/15 Reported Aspir 81 (Aspirin) 81 Mg Tablet.dr 81 Mg PO DAILY08 08/09/15 Reported Klor-Con M20 (Potassium Chloride) 20 Meq Tablet.er 20 Meq PO DAILYWBKFT 07/23/15 Rx Uloric (Febuxostat) 40 Mg Tablet 40 Mg PO DAILY 07/23/15 Rx Colace (Docusate Sodium) 100 Mg Capsule 100 Mg PO DAILY 07/23/15 Rx Eliquis (Apixaban) 5 Mg Tablet 5 Mg PO BID 07/23/15 Rx Cordarone (Amiodarone Hcl) 200 Mg Tablet 200 Mg PO DAILY 07/23/15 Rx Irbesartan 75 Mg Tablet 75 Mg PO DAILY 12/18/14 Reported Lasix (Furosemide) 20 Mg Tablet 20 Mg PO BID 12/18/14 Reported Carvedilol 12.5 Mg Tablet 12.5 Mg PO BIDWMEALS 12/18/14 Reported Fluoxetine Hcl 40 Mg Capsule 40 Mg PO DAILY 12/18/14 Reported Atrovent Hfa (Ipratropium [place]) 12.9 Gm Hfa.aer.ad 2 Puff IH QID 12/18/14 Reported Impression . 1. Acute on chronic respiratory failure secondary to multifactorial etiologies including sepsis and underlying chronic obstructive pulmonary disease with exacerbation. Clinically less likely congestive heart failure, 2. Increased troponin. Suspect non-ST myocardial infarction. 3. Urinary tract infection with sepsis./ gram neg rods in blood 4. Acute on chronic renal failure. 5. Hyperkalemia. 6. Mild protein calorie malnutrition. 7. Influenza is negative. Plan . 1. Continue with present oxygen. 2. Bronchodilators with DuoNeb. 3. resume home lasix 4. Continue broad-spectrum antibiotic. 5. Follow urine cultures./blood cultures 6. cardizem drip per cardiology 7. Follow chest x-ray. 8. The patient is DNR/DNI. discussed with BRIDGETTE DE LA TORRE MD Nov 19, 2016 10:37
[2016-11-19] MEDS ORDERED: DILTIAZEM 125 MG in IV DEXTROSE 5% 100 ML IV PRN (23:45)
[2016-11-20] VITALS (14 sets, daily range): BP systolic 105–134; BP diastolic 54–88
[2016-11-20] MEDS: DILTIAZEM 125 MG in IV DEXTROSE 5% 100 ML IV PRN (00:08)
[2016-11-20 05:34] LABS: BASO % 0 % (0-3); EOS % 1 % (0-3); HEMATOCRIT 36.8 % (36.0-47.0); HEMOGLOBIN 11.6 g/dL (12.0-15.5); LYMPH % 7 % (24-48); MEAN CORPUSCULAR HEMOGLOBIN 26 pg (25-35); MEAN CORPUSCULAR HGB CONC 32 g/dL (31-37); MEAN CORPUSCULAR VOLUME 82 fL (79-100); MONO % 10 % (0-9); NEUT % 82 % (31-73); PLATELET COUNT 250 x10^3/uL (140-400); RED BLOOD COUNT 4.51 x10^6/uL (3.50-5.40); RED CELL DISTRIBUTION WIDTH 16.4 % (11.5-14.5); WHITE BLOOD COUNT 14.4 x10^3/uL (4.0-11.0)
[2016-11-20 05:57] LABS: ALBUMIN 2.5 g/dL (3.4-5.0); CALCIUM 8.7 mg/dL (8.5-10.1); CREATININE 1.5 mg/dL (0.6-1.0); GFR 34.1; PHOSPHORUS 2.2 mg/dL (2.6-4.7); POTASSIUM 3.6 mmol/L (3.5-5.1)
[2016-11-20] MEDS: MEROPENEM 500 MG in IV NORMAL SALINE 50ML 50 ML IV SCH ×3 (06:14→21:11)
[2016-11-20] MEDS: MEXILETINE HCL 200 MG CAPSULE PO SCH ×3 (06:14→21:10)
[2016-11-20] MEDS: IPRATRPIUM/ALBUTEROL 0.5/2.5MG 3 ML NEBU. NEB SCH ×4 (07:51→19:59)
[2016-11-20] MEDS: BUDESONIDE 0.5 MG/2 ML NEBU NEB SCH ×2 (07:52→19:58)
--- NOTE | 2016-11-20 08:24 | PDOC ---
Infectious Disease Note Subjective Subjective Doing better but is confused this am ROS ROS unreliable Vital Sign Vital Signs Vital Signs Date Time Temp Pulse Resp B/P Pulse Ox O2 Delivery O2 Flow Rate FiO2 11/20/16 07:54 96 Nasal Cannula 4.0 11/20/16 06:01 104 120/66 11/20/16 03:01 98.5 18 98.5 Physical Exam PHYSICAL EXAM GENERAL: NAD, Alert but a little drowsy. Coop HEENT: PERRL, OC/OP- dry NECK: Supple, no JVD, no LN LUNGS: some rhonchi HEART: S1S2, no gallop, no murmur ABD: Soft, NT, no organomegaly, no rebound EXT: 1 plus edema, no cyanosis LEAD SUSTAINABILITY SPECIALIST: Alert, coop, no focal neurologic deficit SKIN: No rash IV: ok Labs Lab Laboratory Tests Test 11/20/16 05:00 White Blood Count 14.4x10^3/uL (4.0-11.0) Red Blood Count 4.51x10^6/uL (3.50-5.40) Hemoglobin 11.6g/dL (12.0-15.5) Hematocrit 36.8% (36.0-47.0) Mean Corpuscular Volume 82fL (79-100) Mean Corpuscular Hemoglobin 26pg (25-35) Mean Corpuscular Hemoglobin Concent 32g/dL (31-37) Red Cell Distribution Width 16.4% (11.5-14.5) Platelet Count 250x10^3/uL (140-400) Neutrophils (%) (Auto) 82% (31-73) Lymphocytes (%) (Auto) 7% (24-48) Monocytes (%) (Auto) 10% (0-9) Eosinophils (%) (Auto) 1% (0-3) Basophils (%) (Auto) 0% (0-3) Neutrophils # (Auto) 11.8x10^3uL (1.8-7.7) Lymphocytes # (Auto) 1.0x10^3/uL (1.0-4.8) Monocytes # (Auto) 1.5x10^3/uL (0.0-1.1) Eosinophils # (Auto) 0.2x10^3/uL (0.0-0.7) Basophils # (Auto) 0.0x10^3/uL (0.0-0.2) Sodium Level 145mmol/L (136-145) Potassium Level 3.6mmol/L (3.5-5.1) Chloride Level 104mmol/L (98-107) Carbon Dioxide Level 31mmol/L (21-32) Anion Gap 10 (6-14) Blood Urea Nitrogen 38mg/dL (7-20) Creatinine 1.5mg/dL (0.6-1.0) Estimated GFR (Cockcroft-Gault) 34.1 Glucose Level 141mg/dL (70-99) Calcium Level 8.7mg/dL (8.5-10.1) Phosphorus Level 2.2mg/dL (2.6-4.7) Magnesium Level 1.9mg/dL (1.8-2.4) Albumin 2.5g/dL (3.4-5.0) Micro Escherichia coli Greater than 100,000 colony forming units per mL ANTIMICROBIAL SUSCEPTIBILITY Final Comment S = Susceptible; I = Intermediate; R = Resistant P = Positive; N = Negative MICS are expressed in micrograms per mL Antibiotic RSLT#1 RSLT#2 RSLT#3 RSLT#4 Amoxicillin/Clavulanic Acid R>=32 Ampicillin R>=32 Cefazolin R>=64 Cefepime R<=1 Ceftriaxone R>=64 Cefuroxime R>=64 Cephalothin R>=64 Ciprofloxacin R>=4 Ertapenem S<=0.5 Gentamicin S<=1 Imipenem S<=1 Levofloxacin R>=8 Nitrofurantoin S<=16 Piperacillin R>=128 Tetracycline R>=16 Tobramycin R>=16 Trimethoprim/Sulfa R>=320 Performed at: [facility] Objective Assessment Ecoli Sepsis - POA 11/17 - better. SOA with rhonchi - check BNP still elevated and CXR with some mild opacity Acute Encephalopathy - a little worse this am Leukocytosis - mild increase Fever- better ? NSTEMI Afib now on gtt PANCHITO - some better ECOLI MDR UTI -POA Hyperkalemia Plan Plan of Care Cont Meropenem - clinically better CXR and BNP checked this am Micro to check sensitivity to Zerbaxa in case Meropenem maybe causing encephalopathy. D/w Pauly in micro F/u labs am and cults Await card and Pulm HIPOLITO Amado MD Nov 20, 2016 08:24
[2016-11-20] MEDS: APIXABAN 5 MG TABLET. PO SCH ×2 (08:32→21:10)
[2016-11-20] MEDS: ASPIRIN ENTERIC COATED 81 MG TABLET.DR. PO SCH (08:33)
[2016-11-20] MEDS: GABAPENTIN 300 MG CAPSULE. PO SCH ×2 (08:33→21:10)
[2016-11-20] MEDS: LOSARTAN POTASSIUM 25 MG TABLET. PO SCH (08:33)
[2016-11-20] MEDS: METOPROLOL SUCC 24HR ER 25 MG TAB.ER.24H. PO SCH (08:33)
[2016-11-20] MEDS: FLUOXETINE HCL 20 MG CAPSULE PO SCH (09:00)
[2016-11-20] MEDS: FUROSEMIDE 40 MG/4 ML VIAL IVP SCH (09:00)
--- NOTE | 2016-11-20 09:00 | RAD ---
EXAM: Chest one view. HISTORY: Cough. COMPARISON: 11/18/2016. FINDINGS: A frontal view of the chest is obtained. A left-sided pacer/defibrillator has its leads in the right atrium and right ventricle. There is a mild retrocardiac opacity, not clearly changed. A small left pleural effusion may be present. There is no pneumothorax. The heart is mildly enlarged. There are atherosclerotic calcifications of the aorta. IMPRESSION: 1. Stable mild left retrocardiac opacity. 2. Small left pleural effusion. 3. Mild cardiomegaly.
[2016-11-20] MEDS: ANTI-COAG MONITOR BY PHARMACY. MC PRN (09:22)
--- NOTE | 2016-11-20 10:22 | PDOC ---
SUBJECTIVE ROS CVS: [] Orthopnea, [] CP RESP: [] SOB, [] [place] GI: [] Nausea, [] Vomiting : [] Dysuria, [] Urgency OBJECTIVE Vital Signs Vital Signs Date Time Temp Pulse Resp B/P Pulse Ox O2 Delivery O2 Flow Rate FiO2 11/20/16 09:28 Nasal Cannula 4.0 11/20/16 08:45 98.7 94 18 117/60 93 98.7 I & 0 Intake and Output 11/20/16 07:00 Intake Total 420 ml Output Total 1250 ml Balance -830 ml Intake Oral 340 ml IV Total 80 ml Output Urine Total 1250 ml # Voids 1 PHYSICAL EXAM Physical Exam GEN: Awake, Oriented x [], In [] distress EYES: Vision Unchanged, Conjunctiva Normal EN: No EN Drainage, Mucous Membranes [] NECK: [] JVD, [] JVP, Supple, [] Thyromegaly CVS: S1S2, [] Murmur, No Gallop, No Rub,[] Edema RESP: [] Rales, [] Rhonchi,[] Acc. Muscle Use GI: BS + ve, NO Bruit, Non Tender, Non Distended : [] CVA tenderness, [] Suprapubic Tenderness DIAGNOSIS/ASSESSMENT Assessment & Plan ESRD/ARF: Current fluid and E-lyte status does not necessitate emergent need for dialysis. Will re-evaluate for dialysis in the am and continue on [] schedule. ANEMIA; [] Aranap as ordered, [] Transfuse [] with next HD as needed HTN: Current BP meds as reviewed. See orders for changes. BONE & MINERAL: [] Discussed Plan of Care with family [] at bedside [] over the phone Problems: COMMENT/RELEVANT DATA Meds Current Medications Medications (Trade) Dose Ordered Sig/Carrie Start Time Stop Time Status Last Admin Dose Admin Acetaminophen (Tylenol) 650 mg PRN Q6HRS PRN 11/17/16 08:30 11/19/16 09:38 650 MG Acetaminophen/ Hydrocodone Bitart 1 tab 1 tab PRN Q6HRS PRN 11/19/16 08:45 Albuterol Sulfate (Ventolin Neb Soln) 2.5 mg PRN Q4HRS PRN 11/17/16 08:30 Albuterol/ Ipratropium (Duoneb) 3 ml RTQID 11/17/16 12:00 11/20/16 07:51 3 ML Amiodarone HCl (Cordarone) 200 mg DAILY 11/17/16 09:00 11/18/16 11:49 DC 11/18/16 08:34 200 MG Apixaban (Eliquis) 5 mg BID 11/18/16 21:00 11/20/16 08:32 5 MG Aspirin (Ecotrin) 81 mg DAILY08 11/17/16 09:00 11/20/16 08:33 81 MG Budesonide 0.5 mg 0.5 mg RTBID 11/17/16 09:00 11/20/16 07:52 0.5 MG Calcium Gluconate 1,000 mg 1X ONCE 11/17/16 06:30 11/17/16 06:31 DC 11/17/16 06:55 1,000 MG Carvedilol (Coreg) 12.5 mg BIDWMEALS 11/17/16 09:00 11/18/16 13:48 DC Dextrose 25 gm 1X ONCE 11/17/16 06:30 11/17/16 06:31 DC 11/17/16 06:58 25 GM Digoxin (Lanoxin) 250 mcg 1X ONCE 11/18/16 19:15 11/18/16 19:16 DC 11/18/16 19:21 250 MCG Diltiazem HCl (Cardizem) 5 mg 1X ONCE 11/18/16 20:00 11/18/16 20:01 DC 11/18/16 19:57 5 MG Diltiazem HCl/ Dextrose (Cardizem) 125 ml @ 0 mls/hr CONT PRN 11/19/16 23:45 Enoxaparin Sodium (Lovenox 80mg Syringe) 80 mg DAILY 11/17/16 14:00 11/18/16 12:46 DC 11/18/16 08:33 80 MG Enoxaparin Sodium (Lovenox Per Pharmacy Treatment Dosing) 1 each PRN DAILY PRN 11/17/16 15:30 11/18/16 12:46 DC Fluoxetine HCl (Prozac) 40 mg DAILY 11/17/16 09:00 11/19/16 09:30 40 MG Furosemide (Lasix) 40 mg DAILY 11/17/16 09:00 11/19/16 09:37 40 MG Gabapentin (Neurontin) 300 mg BID 11/17/16 09:00 11/20/16 08:33 300 MG Info (Anti-Coagulation Monitoring By Pharmacy) 1 each PRN DAILY PRN 11/17/16 08:45 11/20/16 09:22 1 EACH Insulin Human Regular (Novolin R Vial) 10 unit 1X ONCE 11/17/16 06:30 11/17/16 06:31 DC 11/17/16 06:57 10 UNIT Levofloxacin/ Dextrose (LEVAQUIN 750mg PREMIX) 150 ml @ 100 mls/hr Q48H 11/17/16 07:00 11/17/16 10:38 DC Levofloxacin/ Dextrose (Levaquin Per Pharmacy) 1 each PRN DAILY PRN 11/17/16 06:15 11/17/16 21:00 DC Linezolid (Zyvox Premix) 300 ml @ 300 mls/hr Q12HR 11/17/16 21:00 11/19/16 07:17 DC 11/18/16 21:08 300 MLS/HR Losartan Potassium (Cozaar) 25 mg DAILY 11/18/16 14:00 11/20/16 08:33 25 MG Magnesium Sulfate/ Dextrose 50 ml @ 25 mls/hr PRN DAILY PRN 11/17/16 09:30 Meropenem 500 mg/ Sodium Chloride 50 ml @ 100 mls/hr Q8HRS 11/17/16 14:00 11/20/16 06:14 100 MLS/HR Metolazone (Zaroxolyn) 5 mg Q48H 11/19/16 09:00 11/19/16 09:37 5 MG Metoprolol Succinate (Toprol Xl) 25 mg DAILY 11/18/16 13:45 11/20/16 08:33 25 MG Mexiletine HCl (Mexitil) 200 mg Q8HRS 11/17/16 12:00 11/20/16 06:14 200 MG Non-Formulary Medication 1 inh BID 11/17/16 09:00 11/17/16 09:00 DC Ondansetron HCl 4 mg 4 mg PRN Q8HRS PRN 11/17/16 06:15 11/18/16 06:14 DC Piperacillin Sod/ Tazobactam Sod 2.25 gm/Sodium Chloride 50 ml @ 100 mls/hr Q6HRS 11/17/16 06:30 11/17/16 10:38 DC 11/17/16 07:04 100 MLS/HR Piperacillin Sod/ Tazobactam Sod 1 each 1 each PRN DAILY PRN 11/17/16 06:15 11/17/16 10:38 DC Potassium Chloride (Klor-Con) 20 meq 1X ONCE 11/19/16 08:45 11/19/16 08:46 DC 11/19/16 09:36 20 MEQ Sodium Polystyrene Sulfonate (Kayexalate) 30 gm 1X ONCE 11/17/16 06:30 11/17/16 06:31 DC 11/17/16 06:58 30 GM Sodium Bicarbonate 50 meq 1X ONCE 11/17/16 06:30 11/17/16 06:31 DC 11/17/16 06:56 50 MEQ Sodium Chloride (Iv Sodium Chloride 0.9% 1000ml Bag) 1,000 ml @ 125 mls/hr Q8H 11/17/16 06:12 11/18/16 06:11 DC 11/17/16 20:34 125 MLS/HR Vancomycin HCl (Vanco Per Pharmacy) 1 each PRN DAILY PRN 11/17/16 06:15 11/17/16 10:38 DC 11/17/16 09:32 1 EACH Vancomycin HCl 1 each 1 each 1X ONCE 11/19/16 07:30 11/19/16 07:30 DC Vancomycin HCl 2 gm/Sodium Chloride 500 ml @ 250 mls/hr 1X ONCE 11/17/16 07:00 11/17/16 09:04 DC 11/17/16 07:52 250 MLS/HR Vancomycin HCl/ Sodium Chloride (Iv Sodium Chloride 0.9% 250ml) 250 ml @ 167 mls/hr Q24H 11/18/16 08:00 11/18/16 08:00 DC Zolpidem Tartrate (Ambien) 5 mg PRN QHS PRN 11/17/16 08:30 11/18/16 21:08 5 MG Lab Laboratory Tests Test 11/20/16 05:00 White Blood Count 14.4x10^3/uL (4.0-11.0) Red Blood Count 4.51x10^6/uL (3.50-5.40) Hemoglobin 11.6g/dL (12.0-15.5) Hematocrit 36.8% (36.0-47.0) Mean Corpuscular Volume 82fL (79-100) Mean Corpuscular Hemoglobin 26pg (25-35) Mean Corpuscular Hemoglobin Concent 32g/dL (31-37) Red Cell Distribution Width 16.4% (11.5-14.5) Platelet Count 250x10^3/uL (140-400) Neutrophils (%) (Auto) 82% (31-73) Lymphocytes (%) (Auto) 7% (24-48) Monocytes (%) (Auto) 10% (0-9) Eosinophils (%) (Auto) 1% (0-3) Basophils (%) (Auto) 0% (0-3) Neutrophils # (Auto) 11.8x10^3uL (1.8-7.7) Lymphocytes # (Auto) 1.0x10^3/uL (1.0-4.8) Monocytes # (Auto) 1.5x10^3/uL (0.0-1.1) Eosinophils # (Auto) 0.2x10^3/uL (0.0-0.7) Basophils # (Auto) 0.0x10^3/uL (0.0-0.2) Sodium Level 145mmol/L (136-145) Potassium Level 3.6mmol/L (3.5-5.1) Chloride Level 104mmol/L (98-107) Carbon Dioxide Level 31mmol/L (21-32) Anion Gap 10 (6-14) Blood Urea Nitrogen 38mg/dL (7-20) Creatinine 1.5mg/dL (0.6-1.0) Estimated GFR (Cockcroft-Gault) 34.1 Glucose Level 141mg/dL (70-99) Calcium Level 8.7mg/dL (8.5-10.1) Phosphorus Level 2.2mg/dL (2.6-4.7) Magnesium Level 1.9mg/dL (1.8-2.4) KT-Smi-Y-Type Natriuretic Peptide > 47061og/mL (0-124) Albumin 2.5g/dL (3.4-5.0) DORETHA KASPER MD Nov 20, 2016 10:22
--- NOTE | 2016-11-20 10:29 | PDOC ---
SUBJECTIVE ROS CK DIII Doing well CVS: no Orthopnea, no CP RESP: no SOB, no FRANKLIN GI: no Nausea, no Vomiting : no Dysuria, no Urgency OBJECTIVE Vital Signs Vital Signs Date Time Temp Pulse Resp B/P Pulse Ox O2 Delivery O2 Flow Rate FiO2 11/20/16 09:28 Nasal Cannula 4.0 11/20/16 08:45 98.7 94 18 117/60 93 98.7 I & 0 Intake and Output 11/20/16 07:00 Intake Total 420 ml Output Total 1250 ml Balance -830 ml Intake Oral 340 ml IV Total 80 ml Output Urine Total 1250 ml # Voids 1 PHYSICAL EXAM Physical Exam General Appearance: Awake more Alert Oriented x 2-3 In no Distress Eyes: Pupils reactive overall Sclera and Conjunctiva Normal EN: No EN Drainage Mucous Memb. dryish Neck: no JVD min JVP Supple no Thyromegaly CVS: S1 S2 sys Murmur No Gallop No Rub Tr Edema Resp: no Rales no Rhonchi no Acc. Muscle use GI: BS + ve NO Bruit Non Tender Non Distended Ostomy bag in palce : no CVA tenderness; no Suprapubic Tenderness ASSESSMENT/PLAN PANCHITO/ ATN: vs pyelonephritis. Current FLuid and E-lyte status does not necessitate emergent need for Dialysis.creat is improving Worsening Cmypoathy (as noted on ECHO) - -ve fluid balance noted. Now on Lasix ; Resume ARB ? Sepsis due to UTI/ Pyelo - now resolved. GNR on cultures, defer Abx to Dr Katz; ? Some CKD III as noted per previous trend (? ASVDz associated +/- NSAIDs use in past) - Worsening Cmyopahty and /or Pyelo may be contributing too. Proteinuria - suspect due to UTI - will need f/up as OP HTN: Current BP reviewed. Defer to Cardiology to optimize from Cmyopahty standpoint. Restarted ARB as she was on it as OP. May need to accept some Azotemia - Benefits > Risk of ^ creat - as long as K can be managed/ Monitored Will be available over weekend if needed - pl call COMMENT/RELEVANT DATA Meds Current Medications Medications (Trade) Dose Ordered Sig/Carrie Start Time Stop Time Status Last Admin Dose Admin Acetaminophen (Tylenol) 650 mg PRN Q6HRS PRN 11/17/16 08:30 11/19/16 09:38 650 MG Acetaminophen/ Hydrocodone Bitart 1 tab 1 tab PRN Q6HRS PRN 11/19/16 08:45 Albuterol Sulfate (Ventolin Neb Soln) 2.5 mg PRN Q4HRS PRN 11/17/16 08:30 Albuterol/ Ipratropium (Duoneb) 3 ml RTQID 11/17/16 12:00 11/20/16 07:51 3 ML Amiodarone HCl (Cordarone) 200 mg DAILY 11/17/16 09:00 11/18/16 11:49 DC 11/18/16 08:34 200 MG Apixaban (Eliquis) 5 mg BID 11/18/16 21:00 11/20/16 08:32 5 MG Aspirin (Ecotrin) 81 mg DAILY08 11/17/16 09:00 11/20/16 08:33 81 MG Budesonide 0.5 mg 0.5 mg RTBID 11/17/16 09:00 11/20/16 07:52 0.5 MG Calcium Gluconate 1,000 mg 1X ONCE 11/17/16 06:30 11/17/16 06:31 DC 11/17/16 06:55 1,000 MG Carvedilol (Coreg) 12.5 mg BIDWMEALS 11/17/16 09:00 11/18/16 13:48 DC Dextrose 25 gm 1X ONCE 11/17/16 06:30 11/17/16 06:31 DC 11/17/16 06:58 25 GM Digoxin (Lanoxin) 250 mcg 1X ONCE 11/18/16 19:15 11/18/16 19:16 DC 11/18/16 19:21 250 MCG Diltiazem HCl (Cardizem) 5 mg 1X ONCE 11/18/16 20:00 11/18/16 20:01 DC 11/18/16 19:57 5 MG Diltiazem HCl/ Dextrose (Cardizem) 125 ml @ 0 mls/hr CONT PRN 11/19/16 23:45 Enoxaparin Sodium (Lovenox 80mg Syringe) 80 mg DAILY 11/17/16 14:00 11/18/16 12:46 DC 11/18/16 08:33 80 MG Enoxaparin Sodium (Lovenox Per Pharmacy Treatment Dosing) 1 each PRN DAILY PRN 11/17/16 15:30 11/18/16 12:46 DC Fluoxetine HCl (Prozac) 40 mg DAILY 11/17/16 09:00 11/19/16 09:30 40 MG Furosemide (Lasix) 40 mg DAILY 11/17/16 09:00 11/19/16 09:37 40 MG Gabapentin (Neurontin) 300 mg BID 11/17/16 09:00 11/20/16 08:33 300 MG Info (Anti-Coagulation Monitoring By Pharmacy) 1 each PRN DAILY PRN 11/17/16 08:45 11/20/16 09:22 1 EACH Insulin Human Regular (Novolin R Vial) 10 unit 1X ONCE 11/17/16 06:30 11/17/16 06:31 DC 11/17/16 06:57 10 UNIT Levofloxacin/ Dextrose (LEVAQUIN 750mg PREMIX) 150 ml @ 100 mls/hr Q48H 11/17/16 07:00 11/17/16 10:38 DC Levofloxacin/ Dextrose (Levaquin Per Pharmacy) 1 each PRN DAILY PRN 11/17/16 06:15 11/17/16 21:00 DC Linezolid (Zyvox Premix) 300 ml @ 300 mls/hr Q12HR 11/17/16 21:00 11/19/16 07:17 DC 11/18/16 21:08 300 MLS/HR Losartan Potassium (Cozaar) 25 mg DAILY 11/18/16 14:00 11/20/16 08:33 25 MG Magnesium Sulfate/ Dextrose 50 ml @ 25 mls/hr PRN DAILY PRN 11/17/16 09:30 Meropenem 500 mg/ Sodium Chloride 50 ml @ 100 mls/hr Q8HRS 11/17/16 14:00 11/20/16 06:14 100 MLS/HR Metolazone (Zaroxolyn) 5 mg Q48H 11/19/16 09:00 11/19/16 09:37 5 MG Metoprolol Succinate (Toprol Xl) 25 mg DAILY 11/18/16 13:45 11/20/16 08:33 25 MG Mexiletine HCl (Mexitil) 200 mg Q8HRS 11/17/16 12:00 11/20/16 06:14 200 MG Non-Formulary Medication 1 inh BID 11/17/16 09:00 11/17/16 09:00 DC Ondansetron HCl 4 mg 4 mg PRN Q8HRS PRN 11/17/16 06:15 11/18/16 06:14 DC Piperacillin Sod/ Tazobactam Sod 2.25 gm/Sodium Chloride 50 ml @ 100 mls/hr Q6HRS 11/17/16 06:30 11/17/16 10:38 DC 11/17/16 07:04 100 MLS/HR Piperacillin Sod/ Tazobactam Sod 1 each 1 each PRN DAILY PRN 11/17/16 06:15 11/17/16 10:38 DC Potassium Chloride (Klor-Con) 20 meq 1X ONCE 11/19/16 08:45 11/19/16 08:46 DC 11/19/16 09:36 20 MEQ Sodium Polystyrene Sulfonate (Kayexalate) 30 gm 1X ONCE 11/17/16 06:30 11/17/16 06:31 DC 11/17/16 06:58 30 GM Sodium Bicarbonate 50 meq 1X ONCE 11/17/16 06:30 11/17/16 06:31 DC 11/17/16 06:56 50 MEQ Sodium Chloride (Iv Sodium Chloride 0.9% 1000ml Bag) 1,000 ml @ 125 mls/hr Q8H 11/17/16 06:12 11/18/16 06:11 DC 11/17/16 20:34 125 MLS/HR Vancomycin HCl (Vanco Per Pharmacy) 1 each PRN DAILY PRN 11/17/16 06:15 11/17/16 10:38 DC 11/17/16 09:32 1 EACH Vancomycin HCl 1 each 1 each 1X ONCE 11/19/16 07:30 11/19/16 07:30 DC Vancomycin HCl 2 gm/Sodium Chloride 500 ml @ 250 mls/hr 1X ONCE 11/17/16 07:00 11/17/16 09:04 DC 11/17/16 07:52 250 MLS/HR Vancomycin HCl/ Sodium Chloride (Iv Sodium Chloride 0.9% 250ml) 250 ml @ 167 mls/hr Q24H 11/18/16 08:00 11/18/16 08:00 DC Zolpidem Tartrate (Ambien) 5 mg PRN QHS PRN 11/17/16 08:30 11/18/16 21:08 5 MG Lab Laboratory Tests Test 11/20/16 05:00 White Blood Count 14.4x10^3/uL (4.0-11.0) Red Blood Count 4.51x10^6/uL (3.50-5.40) Hemoglobin 11.6g/dL (12.0-15.5) Hematocrit 36.8% (36.0-47.0) Mean Corpuscular Volume 82fL (79-100) Mean Corpuscular Hemoglobin 26pg (25-35) Mean Corpuscular Hemoglobin Concent 32g/dL (31-37) Red Cell Distribution Width 16.4% (11.5-14.5) Platelet Count 250x10^3/uL (140-400) Neutrophils (%) (Auto) 82% (31-73) Lymphocytes (%) (Auto) 7% (24-48) Monocytes (%) (Auto) 10% (0-9) Eosinophils (%) (Auto) 1% (0-3) Basophils (%) (Auto) 0% (0-3) Neutrophils # (Auto) 11.8x10^3uL (1.8-7.7) Lymphocytes # (Auto) 1.0x10^3/uL (1.0-4.8) Monocytes # (Auto) 1.5x10^3/uL (0.0-1.1) Eosinophils # (Auto) 0.2x10^3/uL (0.0-0.7) Basophils # (Auto) 0.0x10^3/uL (0.0-0.2) Sodium Level 145mmol/L (136-145) Potassium Level 3.6mmol/L (3.5-5.1) Chloride Level 104mmol/L (98-107) Carbon Dioxide Level 31mmol/L (21-32) Anion Gap 10 (6-14) Blood Urea Nitrogen 38mg/dL (7-20) Creatinine 1.5mg/dL (0.6-1.0) Estimated GFR (Cockcroft-Gault) 34.1 Glucose Level 141mg/dL (70-99) Calcium Level 8.7mg/dL (8.5-10.1) Phosphorus Level 2.2mg/dL (2.6-4.7) Magnesium Level 1.9mg/dL (1.8-2.4) US-Tey-S-Type Natriuretic Peptide > 13585hh/mL (0-124) Albumin 2.5g/dL (3.4-5.0) DORETHA KASPER MD Nov 20, 2016 10:29
--- NOTE | 2016-11-20 11:40 | PDOC ---
PULMONARY PROGRESS NOTES Subjective feels better MS improved Vitals Vital Signs Date Time Temp Pulse Resp B/P Pulse Ox O2 Delivery O2 Flow Rate FiO2 11/20/16 11:22 Nasal Cannula 4.0 11/20/16 10:42 99.2 94 19 118/66 100 99.2 General: Alert, No acute distress HEENT: Other Lungs: Other (few rhonchi) Cardiovascular: S1 Abdomen: Soft Neuro Exam: Alert Extremities: No Edema Skin: Warm Labs Laboratory Tests Test 11/19/16 04:55 11/20/16 05:00 White Blood Count 12.0x10^3/uL (4.0-11.0) 14.4x10^3/uL (4.0-11.0) Red Blood Count 4.37x10^6/uL (3.50-5.40) 4.51x10^6/uL (3.50-5.40) Hemoglobin 11.3g/dL (12.0-15.5) 11.6g/dL (12.0-15.5) Hematocrit 36.7% (36.0-47.0) 36.8% (36.0-47.0) Mean Corpuscular Volume 84fL (79-100) 82fL (79-100) Mean Corpuscular Hemoglobin 26pg (25-35) 26pg (25-35) Mean Corpuscular Hemoglobin Concent 31g/dL (31-37) 32g/dL (31-37) Red Cell Distribution Width 16.4% (11.5-14.5) 16.4% (11.5-14.5) Platelet Count 215x10^3/uL (140-400) 250x10^3/uL (140-400) Neutrophils (%) (Auto) 79% (31-73) 82% (31-73) Lymphocytes (%) (Auto) 8% (24-48) 7% (24-48) Monocytes (%) (Auto) 13% (0-9) 10% (0-9) Eosinophils (%) (Auto) 0% (0-3) 1% (0-3) Basophils (%) (Auto) 0% (0-3) 0% (0-3) Neutrophils # (Auto) 9.5x10^3uL (1.8-7.7) 11.8x10^3uL (1.8-7.7) Lymphocytes # (Auto) 1.0x10^3/uL (1.0-4.8) 1.0x10^3/uL (1.0-4.8) Monocytes # (Auto) 1.6x10^3/uL (0.0-1.1) 1.5x10^3/uL (0.0-1.1) Eosinophils # (Auto) 0.0x10^3/uL (0.0-0.7) 0.2x10^3/uL (0.0-0.7) Basophils # (Auto) 0.0x10^3/uL (0.0-0.2) 0.0x10^3/uL (0.0-0.2) Sodium Level 145mmol/L (136-145) 145mmol/L (136-145) Potassium Level 3.2mmol/L (3.5-5.1) 3.6mmol/L (3.5-5.1) Chloride Level 104mmol/L (98-107) 104mmol/L (98-107) Carbon Dioxide Level 30mmol/L (21-32) 31mmol/L (21-32) Anion Gap 11 (6-14) 10 (6-14) Blood Urea Nitrogen 34mg/dL (7-20) 38mg/dL (7-20) Creatinine 1.6mg/dL (0.6-1.0) 1.5mg/dL (0.6-1.0) Estimated GFR (Cockcroft-Gault) 31.7 34.1 Glucose Level 144mg/dL (70-99) 141mg/dL (70-99) Calcium Level 8.5mg/dL (8.5-10.1) 8.7mg/dL (8.5-10.1) Phosphorus Level 3.0mg/dL (2.6-4.7) 2.2mg/dL (2.6-4.7) Magnesium Level 1.9mg/dL (1.8-2.4) 1.9mg/dL (1.8-2.4) Total Bilirubin 0.6mg/dL (0.2-1.0) Direct Bilirubin 0.2mg/dL (0.0-0.2) Aspartate Amino Transf (AST/SGOT) 31U/L (15-37) Alanine Aminotransferase (ALT/SGPT) 42U/L (14-59) Alkaline Phosphatase 122U/L (46-116) Total Protein 6.6g/dL (6.4-8.2) Albumin 2.3g/dL (3.4-5.0) 2.5g/dL (3.4-5.0) DI-Zbk-M-Type Natriuretic Peptide > 92826ga/mL (0-124) Laboratory Tests Test 11/20/16 05:00 White Blood Count 14.4x10^3/uL (4.0-11.0) Red Blood Count 4.51x10^6/uL (3.50-5.40) Hemoglobin 11.6g/dL (12.0-15.5) Hematocrit 36.8% (36.0-47.0) Mean Corpuscular Volume 82fL (79-100) Mean Corpuscular Hemoglobin 26pg (25-35) Mean Corpuscular Hemoglobin Concent 32g/dL (31-37) Red Cell Distribution Width 16.4% (11.5-14.5) Platelet Count 250x10^3/uL (140-400) Neutrophils (%) (Auto) 82% (31-73) Lymphocytes (%) (Auto) 7% (24-48) Monocytes (%) (Auto) 10% (0-9) Eosinophils (%) (Auto) 1% (0-3) Basophils (%) (Auto) 0% (0-3) Neutrophils # (Auto) 11.8x10^3uL (1.8-7.7) Lymphocytes # (Auto) 1.0x10^3/uL (1.0-4.8) Monocytes # (Auto) 1.5x10^3/uL (0.0-1.1) Eosinophils # (Auto) 0.2x10^3/uL (0.0-0.7) Basophils # (Auto) 0.0x10^3/uL (0.0-0.2) Sodium Level 145mmol/L (136-145) Potassium Level 3.6mmol/L (3.5-5.1) Chloride Level 104mmol/L (98-107) Carbon Dioxide Level 31mmol/L (21-32) Anion Gap 10 (6-14) Blood Urea Nitrogen 38mg/dL (7-20) Creatinine 1.5mg/dL (0.6-1.0) Estimated GFR (Cockcroft-Gault) 34.1 Glucose Level 141mg/dL (70-99) Calcium Level 8.7mg/dL (8.5-10.1) Phosphorus Level 2.2mg/dL (2.6-4.7) Magnesium Level 1.9mg/dL (1.8-2.4) EJ-Nak-F-Type Natriuretic Peptide > 06003tt/mL (0-124) Albumin 2.5g/dL (3.4-5.0) Medications Active Scripts Medications Dose Route/Sig Days Date Category Mexiletine Hcl 200 Mg Capsule 200 Mg PO Q8HRS 11/17/16 Reported Macrobid 100 Mg Capsule (Nitrofurantoin Monohyd/M-Cryst) 100 Mg Capsule 1 Cap PO BID 07/07/16 Rx Acetaminophen 325 Mg Tablet 650 Mg PO PRN Q6HRS PRN 08/09/15 Reported Shock 10-325 Tablet (Acetaminophen/Hydrocodone Bitart) 1 Each Tablet 1 Tab PO PRN Q6HRS PRN 08/09/15 Reported Gabapentin 300 Mg Capsule 300 Mg PO BID 08/09/15 Reported Diltiazem 24HR Cd (Diltiazem Hcl) 120 Mg Cap.er.24h 120 Mg PO DAILY 08/09/15 Reported Zolpidem Tartrate 5 Mg Tablet 5 Mg PO PRN QHS PRN 08/09/15 Reported Alprazolam 0.5 Mg Tablet 0.5 Mg PO PRN Q8HRS PRN 08/09/15 Reported Advair 250-50 Diskus (Fluticasone/Salmeterol) 1 Each Disk.w.dev 1 Inh IH BID 08/09/15 Reported Capzasin-Hp (Capsaicin) 42.5 Gm Cream..g. 1 Terence TP Q8HRS 08/09/15 Reported Aspir 81 (Aspirin) 81 Mg Tablet.dr 81 Mg PO DAILY08 08/09/15 Reported Klor-Con M20 (Potassium Chloride) 20 Meq Tablet.er 20 Meq PO DAILYWBKFT 07/23/15 Rx Uloric (Febuxostat) 40 Mg Tablet 40 Mg PO DAILY 07/23/15 Rx Colace (Docusate Sodium) 100 Mg Capsule 100 Mg PO DAILY 07/23/15 Rx Eliquis (Apixaban) 5 Mg Tablet 5 Mg PO BID 07/23/15 Rx Cordarone (Amiodarone Hcl) 200 Mg Tablet 200 Mg PO DAILY 07/23/15 Rx Irbesartan 75 Mg Tablet 75 Mg PO DAILY 12/18/14 Reported Lasix (Furosemide) 20 Mg Tablet 20 Mg PO BID 12/18/14 Reported Carvedilol 12.5 Mg Tablet 12.5 Mg PO BIDWMEALS 12/18/14 Reported Fluoxetine Hcl 40 Mg Capsule 40 Mg PO DAILY 12/18/14 Reported Atrovent Hfa (Ipratropium Gustine) 12.9 Gm Hfa.aer.ad 2 Puff IH QID 12/18/14 Reported Impression . 1. Acute on chronic respiratory failure secondary to multifactorial etiologies including sepsis and underlying chronic obstructive pulmonary disease with exacerbation. Clinically less likely congestive heart failure, 2. Increased troponin. Suspect non-ST myocardial infarction. 3. Urinary tract infection with sepsis./ gram neg rods in blood (E-COLI) 4. Acute on chronic renal failure. 5. Hyperkalemia. 6. Mild protein calorie malnutrition. 7. Influenza is negative. Plan . 1. Continue with present oxygen. 2. Bronchodilators with DuoNeb. 3. home lasix 4. Continue broad-spectrum antibiotic. 5. Follow urine cultures./blood cultures 6. off cardizem drip per cardiology 7. Follow chest x-ray 11/20 stable 8. The patient is DNR/DNI. BRIDGETTE CORONADO MD Nov 20, 2016 11:39
--- NOTE | 2016-11-20 13:23 | PDOC ---
SUBJECTIVE Subjective Initially was not carrying on a conversation very well but was off supplemental oxygen. When that was restarted she perked up and was more responsive to questions. Denies any pain. Not really hungry but she is thirsty. States her breathing is okay. Nursing states that she was refusing her medications this morning initially. OBJECTIVE Vital Signs Vital Signs Date Time Temp Pulse Resp B/P Pulse Ox O2 Delivery O2 Flow Rate FiO2 11/20/16 11:22 Nasal Cannula 4.0 11/20/16 10:42 99.2 94 19 118/66 100 Nasal Cannula 4.0 99.2 11/20/16 09:28 Nasal Cannula 4.0 11/20/16 08:45 98.7 94 18 117/60 93 Nasal Cannula 4.0 98.7 11/20/16 08:33 104 120/66 11/20/16 08:33 104 120/66 11/20/16 07:54 96 Nasal Cannula 4.0 11/20/16 07:50 Nasal Cannula 4.0 11/20/16 06:01 104 120/66 11/20/16 05:01 95 131/70 11/20/16 04:01 106 118/60 11/20/16 03:01 98.5 112 18 131/73 91 Nasal Cannula 4.0 98.5 11/20/16 02:01 117 105/69 11/20/16 01:01 122 134/67 11/20/16 00:07 124 119/88 11/19/16 23:00 97.7 99 127/67 96 Nasal Cannula 4.0 97.7 11/19/16 20:02 96 Nasal Cannula 4.0 11/19/16 19:57 97.7 99 18 127/67 97 Nasal Cannula 97.7 11/19/16 19:45 Nasal Cannula 4.0 11/19/16 16:00 97.8 79 21 97/67 96 Nasal Cannula 4.0 97.8 11/19/16 15:18 95 Nasal Cannula 5.0 I & O Intake and Output 11/20/16 07:00 Intake Total 420 ml Output Total 1250 ml Balance -830 ml Intake Oral 340 ml IV Total 80 ml Output Urine Total 1250 ml # Voids 1 ASSESSMENT/PLAN Assessment/Plan 1. Sepsis due to UTI: Multidrug resistant Escherichia coli. Continue antibiotics per infectious disease. Low-grade temperatures and improved. Infectious disease is attempting to see if we can get her off meropenem as there has been some concern about increasing confusion possibly due to the medication. 2. Acute respiratory failure: Appears to be improving. Probably due to sepsis. Continue per pulmonology. 2. Hyperkalemia: Resolved with Lasix. Continue per nephrology. 3. Acute renal failure: Making some improvement. Continue current course. Nephrology states that he may need to except some azotemia in order to have adequate diuresis with her CHF and underlying lung disease. 4. COPD with probable exacerbation: Continue nebulizer treatments. Continue per pulmonology 5. CHF, acute on chronic: Continue per cardiology. Probably ischemic cardio myopathy, multifactorial including A. fib with RVR with demand ischemia and VT. Medication management has been somewhat difficult with her low blood pressures. 6. NSTEMI: Continue per cardiology. Medication adjustment per their recommendations 7. Intermittent cough: Probably related to COPD. tolerating her diet 8. A. fib with RVR: Continue per cardiology with rate control medications. Currently on Cardizem drip but plan to transition hopefully soon to oral medication. 9. Cardiomyopathy: Appears to be worsened on current echo with an EF of 25-30%. Continue per cardiology with maximizing medication treatment. Plan to hold off on doing catheterization at this time unless the patient deteriorates. Problems: COMMENT Lab Laboratory Tests Test 11/20/16 05:00 White Blood Count 14.4x10^3/uL (4.0-11.0) Red Blood Count 4.51x10^6/uL (3.50-5.40) Hemoglobin 11.6g/dL (12.0-15.5) Hematocrit 36.8% (36.0-47.0) Mean Corpuscular Volume 82fL (79-100) Mean Corpuscular Hemoglobin 26pg (25-35) Mean Corpuscular Hemoglobin Concent 32g/dL (31-37) Red Cell Distribution Width 16.4% (11.5-14.5) Platelet Count 250x10^3/uL (140-400) Neutrophils (%) (Auto) 82% (31-73) Lymphocytes (%) (Auto) 7% (24-48) Monocytes (%) (Auto) 10% (0-9) Eosinophils (%) (Auto) 1% (0-3) Basophils (%) (Auto) 0% (0-3) Neutrophils # (Auto) 11.8x10^3uL (1.8-7.7) Lymphocytes # (Auto) 1.0x10^3/uL (1.0-4.8) Monocytes # (Auto) 1.5x10^3/uL (0.0-1.1) Eosinophils # (Auto) 0.2x10^3/uL (0.0-0.7) Basophils # (Auto) 0.0x10^3/uL (0.0-0.2) Sodium Level 145mmol/L (136-145) Potassium Level 3.6mmol/L (3.5-5.1) Chloride Level 104mmol/L (98-107) Carbon Dioxide Level 31mmol/L (21-32) Anion Gap 10 (6-14) Blood Urea Nitrogen 38mg/dL (7-20) Creatinine 1.5mg/dL (0.6-1.0) Estimated GFR (Cockcroft-Gault) 34.1 Glucose Level 141mg/dL (70-99) Calcium Level 8.7mg/dL (8.5-10.1) Phosphorus Level 2.2mg/dL (2.6-4.7) Magnesium Level 1.9mg/dL (1.8-2.4) JL-Shv-R-Type Natriuretic Peptide > 86446jg/mL (0-124) Albumin 2.5g/dL (3.4-5.0) KENDRA MANSFIELD MD Nov 20, 2016 13:23
--- NOTE | 2016-11-20 14:11 | PDOC ---
PROGRESS NOTES Subjective Subjective Somnolent, comfortable Objective Objective Vital Signs Date Time Temp Pulse Resp B/P Pulse Ox O2 Delivery O2 Flow Rate FiO2 11/20/16 11:22 Nasal Cannula 4.0 11/20/16 10:42 99.2 94 19 118/66 100 99.2 Intake and Output 11/20/16 07:00 Intake Total 420 ml Output Total 1250 ml Balance -830 ml Intake Oral 340 ml IV Total 80 ml Output Urine Total 1250 ml # Voids 1 Physical Exam Abdomen: Soft, No tenderness Heart: Other (tele: IRRR. AFIB rate 140) Extremities: Other (1+ bilateral upper ext edema ) General: Other (lethargic ) HEENT: Atraumatic, Mucous membr. moist/pink Lungs: Other (diminished bases, expiratory wheezes. coarse throughout) Psych/Mental Status: Other (somnolent) Assessment Assessment 1. NSTEMI peak 4.627 possibly demand ischemia in the setting of PANCHITO and UTI/sepsis continue medical management per patient/family wishes 2. Chronic systolic heart failure with ischemic cardiomyopathy improved LV EF 25-30%. Home metolazone resumed continue diuresis with monitoring of renal function ARB for optimization- d/w nephrology. Hold for hypotension 3. Acute on chronic respiratory failure with AE COPD multifactorial, per pulm 4. PAFIB episodes or RVR overnight- Cardizem gtt initiated. change to po Eliquis for stroke prophylaxis 5. UTI/sepsis BC + gram neg. rods per ID 6. h/o Ventricular tachycardia: s/p AICD no acute events overnight continue Mexiletine and BB 7. CAD PCI/stents to RCA, LAD, and LCX stable. CP free. continue secondary prevention 8. HTN low-normotension 9. HLP LDL 85 10. protein malnutrition Plan Plan of Care Problems Medical Problems: (1) Acute on chronic renal failure Status: Acute (2) Atrial fibrillation with RVR Status: Acute (3) Dehydration Status: Acute (4) Healthcare-associated pneumonia Status: Acute (5) Hyperkalemia Status: Acute (6) Mild protein malnutrition Status: Acute (7) Myocardial ischemia Status: Acute (8) Sepsis Status: Acute Comment Review of Relevant I have reviewed the following items kaila (where applicable) has been applied. Labs Laboratory Tests Test 11/20/16 05:00 White Blood Count 14.4x10^3/uL (4.0-11.0) Red Blood Count 4.51x10^6/uL (3.50-5.40) Hemoglobin 11.6g/dL (12.0-15.5) Hematocrit 36.8% (36.0-47.0) Mean Corpuscular Volume 82fL (79-100) Mean Corpuscular Hemoglobin 26pg (25-35) Mean Corpuscular Hemoglobin Concent 32g/dL (31-37) Red Cell Distribution Width 16.4% (11.5-14.5) Platelet Count 250x10^3/uL (140-400) Neutrophils (%) (Auto) 82% (31-73) Lymphocytes (%) (Auto) 7% (24-48) Monocytes (%) (Auto) 10% (0-9) Eosinophils (%) (Auto) 1% (0-3) Basophils (%) (Auto) 0% (0-3) Neutrophils # (Auto) 11.8x10^3uL (1.8-7.7) Lymphocytes # (Auto) 1.0x10^3/uL (1.0-4.8) Monocytes # (Auto) 1.5x10^3/uL (0.0-1.1) Eosinophils # (Auto) 0.2x10^3/uL (0.0-0.7) Basophils # (Auto) 0.0x10^3/uL (0.0-0.2) Sodium Level 145mmol/L (136-145) Potassium Level 3.6mmol/L (3.5-5.1) Chloride Level 104mmol/L (98-107) Carbon Dioxide Level 31mmol/L (21-32) Anion Gap 10 (6-14) Blood Urea Nitrogen 38mg/dL (7-20) Creatinine 1.5mg/dL (0.6-1.0) Estimated GFR (Cockcroft-Gault) 34.1 Glucose Level 141mg/dL (70-99) Calcium Level 8.7mg/dL (8.5-10.1) Phosphorus Level 2.2mg/dL (2.6-4.7) Magnesium Level 1.9mg/dL (1.8-2.4) XD-Vzu-[id number]-Type Natriuretic Peptide > 61994kr/mL (0-124) Albumin 2.5g/dL (3.4-5.0) Microbiology 11/17/16 Blood Culture - Preliminary, Resulted 11/17/16 Blood Culture Result 1 (VIC) - Preliminary, Resulted 11/17/16 Urine Culture - Final, Complete 11/17/16 Urine Culture Result 1 (VIC) - Final, Complete 11/17/16 Antimicrobic Susceptibility - Final, Complete Medications Current Medications Diltiazem HCl/ Dextrose (Cardizem) 125 ml @ 0 mls/hr CONT PRN IV SEE I/O RECORD ; Start 11/19/16 at 23:45 Vitals/I & O Vital Sign - Last 24 Hours 11/19/16 11/19/16 11/19/16 11/19/16 15:18 16:00 19:45 19:57 Temp 97.8 97.7 97.8 97.7 Pulse 79 99 Resp B/P 97/67 127/67 Pulse Ox 95 96 97 O2 Delivery Nasal Cannula Nasal Cannula Nasal Cannula Nasal Cannula O2 Flow Rate 5.0 4.0 4.0 11/19/16 11/19/16 11/20/16 11/20/16 20:02 23:00 00:07 01:01 Temp 97.7 97.7 Pulse 99 124 122 B/P 127/67 119/88 134/67 Pulse Ox 96 96 O2 Delivery Nasal Cannula Nasal Cannula O2 Flow Rate 4.0 4.0 11/20/16 11/20/16 11/20/16 11/20/16 02:01 03:01 04:01 05:01 Temp 98.5 98.5 Pulse 117 112 106 95 Resp 18 B/P 105/69 131/73 118/60 131/70 Pulse Ox 91 O2 Delivery Nasal Cannula O2 Flow Rate 4.0 11/20/16 11/20/16 11/20/16 11/20/16 06:01 07:50 07:54 08:33 Pulse 104 104 B/P 120/66 120/66 Pulse Ox 96 O2 Delivery Nasal Cannula Nasal Cannula O2 Flow Rate 4.0 4.0 11/20/16 11/20/16 11/20/16 11/20/16 08:33 08:45 09:28 10:42 Temp 98.7 99.2 98.7 99.2 Pulse 104 94 94 Resp 18 19 B/P 120/66 117/60 118/66 Pulse Ox 93 100 O2 Delivery Nasal Cannula Nasal Cannula Nasal Cannula O2 Flow Rate 4.0 4.0 4.0 11/20/16 11:22 O2 Delivery Nasal Cannula O2 Flow Rate 4.0 Intake and Output 11/19/16 11/19/16 11/20/16 15:00 23:00 07:00 Intake Total 80 ml 340 ml Output Total 800 ml 450 ml Balance -720 ml -110 ml CODIE WEEKS MD Nov 20, 2016 14:11
[2016-11-20] MEDS: DILTIAZEM HCL 120 MG CAP.ER.24H PO SCH (15:18)
[2016-11-21] MEDS: ALBUTEROL SULFATE 2.5 MG/3 ML NEBU. NEB PRN ×2 (01:25→22:13)
[2016-11-21 02:16] VITALS: BP 141/65
[2016-11-21 06:09] LABS: ALBUMIN 2.3 g/dL (3.4-5.0); CALCIUM 8.8 mg/dL (8.5-10.1); CREATININE 1.2 mg/dL (0.6-1.0); GFR 44.2; PHOSPHORUS 2.4 mg/dL (2.6-4.7); POTASSIUM 3.3 mmol/L (3.5-5.1)
[2016-11-21] MEDS: MEXILETINE HCL 200 MG CAPSULE PO SCH ×3 (06:21→21:48)
[2016-11-21] MEDS: MEROPENEM 500 MG in IV NORMAL SALINE 50ML 50 ML IV SCH ×3 (06:21→21:49)
[2016-11-21 07:40] VITALS: BP 142/73
[2016-11-21] MEDS: IPRATRPIUM/ALBUTEROL 0.5/2.5MG 3 ML NEBU. NEB SCH ×4 (07:40→18:20)
[2016-11-21] MEDS: BUDESONIDE 0.5 MG/2 ML NEBU NEB SCH ×2 (07:40→18:19)
[2016-11-21] MEDS: GABAPENTIN 300 MG CAPSULE. PO SCH ×2 (09:45→21:49)
[2016-11-21] MEDS: ASPIRIN ENTERIC COATED 81 MG TABLET.DR. PO SCH (09:46)
[2016-11-21] MEDS: POTASSIUM CHLORIDE 10 MEQ TABLET.ER. PO SCH ×2 (09:46→21:49)
[2016-11-21] MEDS: FLUOXETINE HCL 20 MG CAPSULE PO SCH (09:46)
[2016-11-21] MEDS: METOLAZONE 2.5 MG TABLET PO SCH (09:46)
[2016-11-21] MEDS: APIXABAN 5 MG TABLET. PO SCH ×2 (09:46→21:48)
[2016-11-21] MEDS: LOSARTAN POTASSIUM 25 MG TABLET. PO SCH (09:46)
[2016-11-21] MEDS: FUROSEMIDE 40 MG/4 ML VIAL IVP SCH (09:47)
[2016-11-21] MEDS: METOPROLOL SUCC 24HR ER 25 MG TAB.ER.24H. PO SCH (09:47)
[2016-11-21] MEDS: DILTIAZEM HCL 120 MG CAP.ER.24H PO SCH (09:47)
--- NOTE | 2016-11-21 10:10 | PDOC ---
Infectious Disease Note Subjective Subjective c/o right heel pain, otherwise doing ok ROS ROS GEN: Denies fevers, chills, sweats CV: Denies chest pain RESP: Denies shortness of air, cough GI: Denies n/v/d Vital Sign Vital Signs Vital Signs Date Time Temp Pulse Resp B/P Pulse Ox O2 Delivery O2 Flow Rate FiO2 11/21/16 09:47 113 142/73 11/21/16 07:41 93 Nasal Cannula 3.0 11/21/16 07:40 98.2 18 98.2 Physical Exam PHYSICAL EXAM GENERAL: Propped up in bed, NAD HEENT: Oral cavity pink and moist NECK: Supple, no JVD, no LN LUNGS: Rhonchi HEART: S1S2 ABD: Soft, NT, BS present EXT: No edema, no cyanosis QUALITY CONTROL LAB TECH: Alert, responding appropriately SKIN: No rash. Right heel pressure wound IV: ok Labs Lab Laboratory Tests Test 11/21/16 05:00 Sodium Level 144mmol/L (136-145) Potassium Level 3.3mmol/L (3.5-5.1) Chloride Level 103mmol/L (98-107) Carbon Dioxide Level 34mmol/L (21-32) Anion Gap 7 (6-14) Blood Urea Nitrogen 35mg/dL (7-20) Creatinine 1.2mg/dL (0.6-1.0) Estimated GFR (Cockcroft-Gault) 44.2 Glucose Level 122mg/dL (70-99) Calcium Level 8.8mg/dL (8.5-10.1) Phosphorus Level 2.4mg/dL (2.6-4.7) Magnesium Level 1.9mg/dL (1.8-2.4) Albumin 2.3g/dL (3.4-5.0) EXAM: Chest one view. HISTORY: Cough. COMPARISON: 11/18/2016. FINDINGS: A frontal view of the chest is obtained. A left-sided pacer/defibrillator has its leads in the right atrium and right ventricle. There is a mild retrocardiac opacity, not clearly changed. A small left pleural effusion may be present. There is no pneumothorax. The heart is mildly enlarged. There are atherosclerotic calcifications of the aorta. IMPRESSION: 1. Stable mild left retrocardiac opacity. 2. Small left pleural effusion. 3. Mild cardiomegaly. Objective Assessment Ecoli Sepsis - POA 11/17 - better. Sensitive to Zerbaxa SOA with rhonchi - check BNP still elevated and CXR with some mild opacity Acute Encephalopathy, better Leukocytosis - mild increase Fever- better NSTEMI Chronic heart failure Afib now on gtt PANCHITO - some better E. coli MDR UTI -POA Hyperkalemia Right heel pressure wound. Plan Plan of Care Cont Meropenem - clinically better E. coli sensitive to Zerbaxa off load heel. wound care team following Patient seen and examined. Chart reviewed. Case discussed with RELATIONSHIP MANAGER. Agree with above plan LUZ CALHOUN APRN Nov 21, 2016 10:10 KINZA KNIGHT MD Nov 21, 2016 15:27
[2016-11-21 11:03] VITALS: BP 118/71
--- NOTE | 2016-11-21 12:38 | PDOC ---
PROGRESS NOTES Subjective Subjective Patient denies pain or other concerns. Objective Objective Vital Signs Date Time Temp Pulse Resp B/P Pulse Ox O2 Delivery O2 Flow Rate FiO2 11/21/16 11:07 Nasal Cannula 5.0 11/21/16 11:03 98.3 97 24 118/71 96 98.3 Intake and Output 11/21/16 07:00 Intake Total 740 ml Output Total 1850 ml Balance -1110 ml Intake Oral 740 ml Output Urine Total 1850 ml Physical Exam Abdomen: Normal bowel sounds, Soft, No tenderness Heart: Other (irregular irregular) Extremities: No edema General: Alert, No acute distress Lungs: Clear to auscultation (BS decreased throughout) Assessment Assessment Problems Medical Problems: (1) Acute on chronic renal failure Status: Acute (2) Atrial fibrillation with RVR Status: Acute (3) Dehydration Status: Acute (4) Healthcare-associated pneumonia Status: Acute (5) Hyperkalemia Status: Acute (6) Mild protein malnutrition Status: Acute (7) Myocardial ischemia Status: Acute (8) Sepsis Status: Acute Plan Plan of Care 1. Sepsis with UTI - stable, continue abx as per ID. 2. afib - now on po meds, rate fairly well controlled. 3. chronic respiratory failure with COPD - stable. 4. CHF with AE - tolerating diuresis with present meds. Replace K+ po and follow lab. 5. acute renal failure with CKD - stable. Comment Review of Relevant I have reviewed the following items kaila (where applicable) has been applied. Labs Laboratory Tests Test 11/20/16 05:00 11/21/16 05:00 White Blood Count 14.4x10^3/uL (4.0-11.0) Red Blood Count 4.51x10^6/uL (3.50-5.40) Hemoglobin 11.6g/dL (12.0-15.5) Hematocrit 36.8% (36.0-47.0) Mean Corpuscular Volume 82fL (79-100) Mean Corpuscular Hemoglobin 26pg (25-35) Mean Corpuscular Hemoglobin Concent 32g/dL (31-37) Red Cell Distribution Width 16.4% (11.5-14.5) Platelet Count 250x10^3/uL (140-400) Neutrophils (%) (Auto) 82% (31-73) Lymphocytes (%) (Auto) 7% (24-48) Monocytes (%) (Auto) 10% (0-9) Eosinophils (%) (Auto) 1% (0-3) Basophils (%) (Auto) 0% (0-3) Neutrophils # (Auto) 11.8x10^3uL (1.8-7.7) Lymphocytes # (Auto) 1.0x10^3/uL (1.0-4.8) Monocytes # (Auto) 1.5x10^3/uL (0.0-1.1) Eosinophils # (Auto) 0.2x10^3/uL (0.0-0.7) Basophils # (Auto) 0.0x10^3/uL (0.0-0.2) Sodium Level 145mmol/L (136-145) 144mmol/L (136-145) Potassium Level 3.6mmol/L (3.5-5.1) 3.3mmol/L (3.5-5.1) Chloride Level 104mmol/L (98-107) 103mmol/L (98-107) Carbon Dioxide Level 31mmol/L (21-32) 34mmol/L (21-32) Anion Gap 10 (6-14) 7 (6-14) Blood Urea Nitrogen 38mg/dL (7-20) 35mg/dL (7-20) Creatinine 1.5mg/dL (0.6-1.0) 1.2mg/dL (0.6-1.0) Estimated GFR (Cockcroft-Gault) 34.1 44.2 Glucose Level 141mg/dL (70-99) 122mg/dL (70-99) Calcium Level 8.7mg/dL (8.5-10.1) 8.8mg/dL (8.5-10.1) Phosphorus Level 2.2mg/dL (2.6-4.7) 2.4mg/dL (2.6-4.7) Magnesium Level 1.9mg/dL (1.8-2.4) 1.9mg/dL (1.8-2.4) IB-Nfx-B-Type Natriuretic Peptide > 22239km/mL (0-124) Albumin 2.5g/dL (3.4-5.0) 2.3g/dL (3.4-5.0) Laboratory Tests Test 11/21/16 05:00 Sodium Level 144mmol/L (136-145) Potassium Level 3.3mmol/L (3.5-5.1) Chloride Level 103mmol/L (98-107) Carbon Dioxide Level 34mmol/L (21-32) Anion Gap 7 (6-14) Blood Urea Nitrogen 35mg/dL (7-20) Creatinine 1.2mg/dL (0.6-1.0) Estimated GFR (Cockcroft-Gault) 44.2 Glucose Level 122mg/dL (70-99) Calcium Level 8.8mg/dL (8.5-10.1) Phosphorus Level 2.4mg/dL (2.6-4.7) Magnesium Level 1.9mg/dL (1.8-2.4) Albumin 2.3g/dL (3.4-5.0) Microbiology 11/17/16 Blood Culture - Final, Complete 11/17/16 Blood Culture Result 1 (VIC) - Final, Complete 11/17/16 Urine Culture - Final, Complete 11/17/16 Urine Culture Result 1 (VIC) - Final, Complete 11/17/16 Antimicrobic Susceptibility - Final, Complete Medications Current Medications Sodium Chloride (Iv Sodium Chloride 0.9% 1000ml Bag) 1,000 ml @ 615 mls/hr Q1H38M IV Last administered on 11/17/16 05:22; Start 11/17/16 at 05:09; Stop 11/17/16 at 09:08; Status DC Calcium Gluconate 1,000 mg 1X ONCE IVP Last administered on 11/17/16 06:55; Start 11/17/16 at 06:30; Stop 11/17/16 at 06:31; Status DC Sodium Bicarbonate 50 meq 1X ONCE IV Last administered on 11/17/16 06:56; Start 11/17/16 at 06:30; Stop 11/17/16 at 06:31; Status DC Dextrose 25 gm 1X ONCE IV Last administered on 11/17/16 06:58; Start at 06:30; Stop 11/17/16 at 06:31; Status DC Insulin Human Regular (Novolin R Vial) 10 unit 1X ONCE IV Last administered on 11/17/16 06:57; Start 11/17/16 at 06:30; Stop 11/17/16 at 06:31; Status DC Sodium Polystyrene Sulfonate (Kayexalate) 30 gm 1X ONCE PO Last administered on 11/17/16 06:58; Start 11/17/16 at 06:30; Stop 11/17/16 at 06:31; Status DC Ondansetron HCl 4 mg 4 mg PRN Q8HRS PRN IV NAUSEA/VOMITING; Start 11/17/16 at 06:15; Stop 11/18/16 at 06:14; Status DC Sodium Chloride (Iv Sodium Chloride 0.9% 1000ml Bag) 1,000 ml @ 125 mls/hr Q8H IV Last administered on 11/17/16 20:34; Start 11/17/16 at 06:12; Stop at 06:11; Status DC Acetaminophen (Tylenol) 650 mg PRN Q4HRS PRN PO FEVER; Start 11/17/16 at 06:15 ; Stop 11/17/16 at 08:35; Status DC Albuterol/ Ipratropium (Duoneb) 3 ml RTQID NEB ; Start 11/17/16 at 08:00; Stop 11/17/16 at 08:33; Status DC Vancomycin HCl (Vanco Per Pharmacy) 1 each PRN DAILY PRN MC SEE COMMENTS Last administered on 11/17/16 09:32; Start 11/17/16 at 06:15; Stop 11/17/16 at 10:38 ; Status DC Levofloxacin/ Dextrose (Levaquin Per Pharmacy) 1 each PRN DAILY PRN MC SEE COMMENTS; Start 11/17/16 at 06:15; Stop 11/17/16 at 21:00; Status DC Piperacillin Sod/ Tazobactam Sod 1 each 1 each PRN DAILY PRN MC SEE COMMENTS; Start 11/17/16 at 06:15; Stop 11/17/16 at 10:38; Status DC Vancomycin HCl 2 gm/Sodium Chloride 500 ml @ 250 mls/hr 1X ONCE IV Last administered on 11/17/16 07:52; Start 11/17/16 at 07:00; Stop 11/17/16 at 09:04 ; Status DC Piperacillin Sod/ Tazobactam Sod 2.25 gm/Sodium Chloride 50 ml @ 100 mls/hr Q6HRS IV Last administered on 11/17/16 07:04; Start 11/17/16 at 06:30; Stop at 10:38; Status DC Levofloxacin/ Dextrose (LEVAQUIN 750mg PREMIX) 150 ml @ 100 mls/hr Q48H IV ; Start 11/17/16 at 07:00; Stop 11/17/16 at 10:38; Status DC Furosemide (Lasix) 40 mg DAILY IVP Last administered on 11/21/16 09:47; Start 11/17/16 at 09:00 Albuterol/ Ipratropium (Duoneb) 3 ml RTQID NEB Last administered on 11/21/16 11:07; Start 11/17/16 at 12:00 Albuterol Sulfate (Ventolin Neb Soln) 2.5 mg PRN Q4HRS PRN NEB SHORTNESS OF BREATH Last administered on 11/21/16 01:25; Start 11/17/16 at 08:30 Acetaminophen (Tylenol) 650 mg PRN Q6HRS PRN PO MILD PAIN Last administered on 11/19/16 09:38; Start 11/17/16 at 08:30 Amiodarone HCl (Cordarone) 200 mg DAILY PO Last administered on 11/18/16 08:34 ; Start 11/17/16 at 09:00; Stop 11/18/16 at 11:49; Status DC Apixaban (Eliquis) 5 mg BID PO ; Start 11/17/16 at 09:00; Stop 11/17/16 at 15:30 ; Status DC Aspirin (Ecotrin) 81 mg DAILY08 PO Last administered on 11/21/16 09:46; Start 11/17/16 at 09:00 Carvedilol (Coreg) 12.5 mg BIDWMEALS PO ; Start 11/17/16 at 09:00; Stop at 13:48; Status DC Gabapentin (Neurontin) 300 mg BID PO Last administered on 11/21/16 09:45; Start 11/17/16 at 09:00 Zolpidem Tartrate (Ambien) 5 mg PRN QHS PRN PO INSOMNIA Last administered on 21:08; Start 11/17/16 at 08:30 Non-Formulary Medication 40 mg DAILY PO ; Start 11/17/16 at 09:00; Stop at 09:00; Status DC Non-Formulary Medication 1 inh BID IH ; Start 11/17/16 at 09:00; Stop 11/17/16 at 09:00; Status DC Fluoxetine HCl (Prozac) 40 mg DAILY PO Last administered on 11/21/16 09:46; Start 11/17/16 at 09:00 Info (Anti-Coagulation Monitoring By Pharmacy) 1 each PRN DAILY PRN MC SEE COMMENTS Last administered on 11/20/16 09:22; Start 11/17/16 at 08:45 Budesonide 0.5 mg 0.5 mg RTBID NEB Last administered on 11/21/16 07:40; Start 11/17/16 at 09:00 Vancomycin HCl/ Sodium Chloride (Iv Sodium Chloride 0.9% 250ml) 250 ml @ 167 mls/hr Q24H IV ; Start 11/18/16 at 08:00; Stop 11/18/16 at 08:00; Status DC Vancomycin HCl 1 each 1 each 1X ONCE MC ; Start 11/19/16 at 07:30; Stop at 07:30; Status DC Magnesium Sulfate/ Dextrose 50 ml @ 25 mls/hr PRN DAILY PRN IV for Mag < 1.7 on am labs; Start 11/17/16 at 09:30 Meropenem 500 mg/ Sodium Chloride 50 ml @ 100 mls/hr Q8HRS IV Last administered on 11/21/16 06:21; Start 11/17/16 at 14:00 Linezolid 300 ml @ 300 mls/hr Q12HR IV Last administered on 11/18/16 21:08; Start 11/17/16 at 21:00; Stop 11/19/16 at 07:17; Status DC Diltiazem HCl/ Dextrose (Cardizem) 125 ml @ 0 mls/hr CONT PRN IV SEE I/O RECORD Last administered on 11/18/16 10:37; Start 11/17/16 at 11:15; Stop 11/18 at 12:43; Status DC Mexiletine HCl (Mexitil) 200 mg Q8HRS PO Last administered on 11/21/16 06:21; Start 11/17/16 at 12:00 Digoxin (Lanoxin) 250 mcg 1X ONCE IV ; Start 11/17/16 at 12:30; Stop 11/17/16 at 12:36; Status DC Enoxaparin Sodium (Lovenox Per Pharmacy Treatment Dosing) 1 each PRN DAILY PRN MC SEE COMMENTS; Start 11/17/16 at 15:30; Stop 11/18/16 at 12:46; Status DC Enoxaparin Sodium (Lovenox 80mg Syringe) 80 mg DAILY SQ Last administered on 08:33; Start 11/17/16 at 14:00; Stop 11/18/16 at 12:46; Status DC Apixaban (Eliquis) 5 mg BID PO Last administered on 11/21/16 09:46; Start at 21:00 Losartan Potassium (Cozaar) 25 mg DAILY PO Last administered on 11/21/16 09:46 ; Start 11/18/16 at 14:00 Metoprolol Succinate (Toprol Xl) 25 mg DAILY PO Last administered on 11/21/16 09:47; Start 11/18/16 at 13:45 Metolazone (Zaroxolyn) 5 mg Q48H PO Last administered on 11/21/16 09:46; Start 11/19/16 at 09:00 Potassium Chloride (Klor-Con) 10 meq Q48H PO Last administered on 11/21/16 09: 46; Start 11/19/16 at 08:00 Digoxin 250 mcg 250 mcg 1X ONCE IV Last administered on 11/18/16 19:21; Start 11/18/16 at 19:15; Stop 11/18/16 at 19:16; Status DC Diltiazem HCl/ Dextrose (Cardizem) 125 ml @ 0 mls/hr CONT PRN IV SEE I/O RECORD Last administered on 11/20/16 00:08; Start 11/18/16 at 19:45; Stop 11/20 at 14:13; Status DC Diltiazem HCl (Cardizem) 5 mg 1X ONCE IVP Last administered on 11/18/16 19:57 ; Start 11/18/16 at 20:00; Stop 11/18/16 at 20:01; Status DC Potassium Chloride (Klor-Con) 20 meq 1X ONCE PO Last administered on 09:36; Start 11/19/16 at 08:45; Stop 11/19/16 at 08:46; Status DC Acetaminophen/ Hydrocodone Bitart 1 tab 1 tab PRN Q6HRS PRN PO MODERATE - SEVERE PAIN; Start 11/19/16 at 08:45 Diltiazem HCl/ Dextrose (Cardizem) 125 ml @ 0 mls/hr CONT PRN IV SEE I/O RECORD ; Start 11/19/16 at 23:45; Stop 11/20/16 at 14:13; Status DC Diltiazem HCl (Cardizem 24hr Cd) 120 mg DAILY PO Last administered on 09:47; Start 11/20/16 at 14:15 Active Scripts Active Metolazone 5 Mg Tablet 5 Mg PO QODAY Spironolactone 25 Mg Tablet 1 Tab PO DAILY Potassium Chloride 10 Meq Capsule.er 10 Meq PO QODAY NITRO-DUR 0.4mg/hr (Nitroglycerin) 1 Each Patch.td24 1 Each TD DAILY Metoprolol Tartrate 25 Mg Tablet 1 Tab PO BID Macrobid 100 Mg Capsule (Nitrofurantoin Monohyd/M-Cryst) 100 Mg Capsule 1 Cap PO BID Colace (Docusate Sodium) 100 Mg Capsule 100 Mg PO DAILY Reported Zyprexa (Olanzapine) 5 Mg Tablet 1 Tab PO QHS Lunesta (Eszopiclone) 3 Mg Tablet 1 Tab PO QHS Lasix (Furosemide) 40 Mg Tablet 1 Tab PO DAILY Depakote Er (Divalproex Sodium) 500 Mg Tab.er.24h 500 Mg PO HS Ativan (Lorazepam) 1 Mg Tablet 1 Mg PO TID Mexiletine Hcl 200 Mg Capsule 200 Mg PO Q8HRS Acetaminophen 325 Mg Tablet 650 Mg PO PRN Q6HRS PRN [place] 10-325 Tablet (Acetaminophen/Hydrocodone Bitart) 1 Each Tablet 1 Tab PO PRN Q6HRS PRN Gabapentin 300 Mg Capsule 200 Mg PO BID Advair 250-50 Diskus (Fluticasone/Salmeterol) 1 Each Disk.w.dev 1 Inh IH BID Fluoxetine Hcl 40 Mg Capsule 20 Mg PO DAILY Atrovent Hfa (Ipratropium [place]) 12.9 Gm Hfa.aer.ad 2 Puff IH QID Vitals/I & O Vital Sign - Last 24 Hours 11/20/16 11/20/16 11/20/16 11/20/16 15:00 15:18 17:09 19:16 Temp 97.9 97.9 Pulse 85 94 96 Resp 18 16 B/P 134/77 118/66 106/54 Pulse Ox 94 96 93 O2 Delivery Nasal Cannula Nasal Cannula Nasal Cannula O2 Flow Rate 4.0 4.0 4.0 11/20/16 11/20/16 11/20/16 11/20/16 20:00 20:08 20:08 22:37 Temp 99.2 99.2 Pulse 83 Resp 18 B/P 130/67 Pulse Ox 96 96 94 O2 Delivery Nasal Cannula Nasal Cannula Nasal Cannula Nasal Cannula O2 Flow Rate 2.0 4.0 4.0 3.0 11/21/16 11/21/16 11/21/16 11/21/16 01:25 02:16 07:40 07:41 Temp 98.7 98.2 98.7 98.2 Pulse 105 113 Resp 18 B/P 141/65 142/73 Pulse Ox 97 92 93 93 O2 Delivery Nasal Cannula Nasal Cannula Nasal Cannula Nasal Cannula O2 Flow Rate 3.0 3.0 3.0 3.0 11/21/16 11/21/16 11/21/16 11/21/16 09:46 09:47 09:47 11:03 Temp 98.3 98.3 Pulse 113 113 113 97 Resp 24 B/P 142/73 142/73 142/73 118/71 Pulse Ox 96 O2 Delivery Nasal Cannula 11/21/16 11:07 O2 Delivery Nasal Cannula O2 Flow Rate 5.0 Intake and Output 11/20/16 11/20/16 11/21/16 15:00 23:00 07:00 Intake Total 540 ml 200 ml Output Total 1000 ml 850 ml Balance -460 ml -650 ml PADDY ZHAO MD Nov 21, 2016 12:38
--- NOTE | 2016-11-21 14:01 | PDOC ---
PULMONARY PROGRESS NOTES Subjective feels better MS improved Vitals Vital Signs Date Time Temp Pulse Resp B/P Pulse Ox O2 Delivery O2 Flow Rate FiO2 11/21/16 11:07 Nasal Cannula 5.0 11/21/16 11:03 98.3 97 24 118/71 96 98.3 General: Alert, No acute distress HEENT: Other Lungs: Other (few rhonchi) Cardiovascular: S1 Abdomen: Soft Neuro Exam: Alert Extremities: No Edema Skin: Warm Labs Laboratory Tests Test 11/20/16 05:00 11/21/16 05:00 White Blood Count 14.4x10^3/uL (4.0-11.0) Red Blood Count 4.51x10^6/uL (3.50-5.40) Hemoglobin 11.6g/dL (12.0-15.5) Hematocrit 36.8% (36.0-47.0) Mean Corpuscular Volume 82fL (79-100) Mean Corpuscular Hemoglobin 26pg (25-35) Mean Corpuscular Hemoglobin Concent 32g/dL (31-37) Red Cell Distribution Width 16.4% (11.5-14.5) Platelet Count 250x10^3/uL (140-400) Neutrophils (%) (Auto) 82% (31-73) Lymphocytes (%) (Auto) 7% (24-48) Monocytes (%) (Auto) 10% (0-9) Eosinophils (%) (Auto) 1% (0-3) Basophils (%) (Auto) 0% (0-3) Neutrophils # (Auto) 11.8x10^3uL (1.8-7.7) Lymphocytes # (Auto) 1.0x10^3/uL (1.0-4.8) Monocytes # (Auto) 1.5x10^3/uL (0.0-1.1) Eosinophils # (Auto) 0.2x10^3/uL (0.0-0.7) Basophils # (Auto) 0.0x10^3/uL (0.0-0.2) Sodium Level 145mmol/L (136-145) 144mmol/L (136-145) Potassium Level 3.6mmol/L (3.5-5.1) 3.3mmol/L (3.5-5.1) Chloride Level 104mmol/L (98-107) 103mmol/L (98-107) Carbon Dioxide Level 31mmol/L (21-32) 34mmol/L (21-32) Anion Gap 10 (6-14) 7 (6-14) Blood Urea Nitrogen 38mg/dL (7-20) 35mg/dL (7-20) Creatinine 1.5mg/dL (0.6-1.0) 1.2mg/dL (0.6-1.0) Estimated GFR (Cockcroft-Gault) 34.1 44.2 Glucose Level 141mg/dL (70-99) 122mg/dL (70-99) Calcium Level 8.7mg/dL (8.5-10.1) 8.8mg/dL (8.5-10.1) Phosphorus Level 2.2mg/dL (2.6-4.7) 2.4mg/dL (2.6-4.7) Magnesium Level 1.9mg/dL (1.8-2.4) 1.9mg/dL (1.8-2.4) FP-Jke-F-Type Natriuretic Peptide > 82394fl/mL (0-124) Albumin 2.5g/dL (3.4-5.0) 2.3g/dL (3.4-5.0) Laboratory Tests Test 11/21/16 05:00 Sodium Level 144mmol/L (136-145) Potassium Level 3.3mmol/L (3.5-5.1) Chloride Level 103mmol/L (98-107) Carbon Dioxide Level 34mmol/L (21-32) Anion Gap 7 (6-14) Blood Urea Nitrogen 35mg/dL (7-20) Creatinine 1.2mg/dL (0.6-1.0) Estimated GFR (Cockcroft-Gault) 44.2 Glucose Level 122mg/dL (70-99) Calcium Level 8.8mg/dL (8.5-10.1) Phosphorus Level 2.4mg/dL (2.6-4.7) Magnesium Level 1.9mg/dL (1.8-2.4) Albumin 2.3g/dL (3.4-5.0) Medications Active Scripts Medications Dose Route/Sig Days Date Category Mexiletine Hcl 200 Mg Capsule 200 Mg PO Q8HRS 11/17/16 Reported Macrobid 100 Mg Capsule (Nitrofurantoin Monohyd/M-Cryst) 100 Mg Capsule 1 Cap PO BID 07/07/16 Rx Acetaminophen 325 Mg Tablet 650 Mg PO PRN Q6HRS PRN 08/09/15 Reported [place] 10-325 Tablet (Acetaminophen/Hydrocodone Bitart) 1 Each Tablet 1 Tab PO PRN Q6HRS PRN 08/09/15 Reported Gabapentin 300 Mg Capsule 300 Mg PO BID 08/09/15 Reported Diltiazem 24HR Cd (Diltiazem Hcl) 120 Mg Cap.er.24h 120 Mg PO DAILY 08/09/15 Reported Zolpidem Tartrate 5 Mg Tablet 5 Mg PO PRN QHS PRN 08/09/15 Reported Alprazolam 0.5 Mg Tablet 0.5 Mg PO PRN Q8HRS PRN 08/09/15 Reported Advair 250-50 Diskus (Fluticasone/Salmeterol) 1 Each Disk.w.dev 1 Inh IH BID 08/09/15 Reported Capzasin-Hp (Capsaicin) 42.5 Gm Cream..g. 1 [place] TP Q8HRS 08/09/15 Reported Aspir 81 (Aspirin) 81 Mg Tablet.dr 81 Mg PO DAILY08 08/09/15 Reported Klor-Con M20 (Potassium Chloride) 20 Meq Tablet.er 20 Meq PO DAILYWBKFT 07/23/15 Rx Uloric (Febuxostat) 40 Mg Tablet 40 Mg PO DAILY 07/23/15 Rx Colace (Docusate Sodium) 100 Mg Capsule 100 Mg PO DAILY 07/23/15 Rx Eliquis (Apixaban) 5 Mg Tablet 5 Mg PO BID 07/23/15 Rx Cordarone (Amiodarone Hcl) 200 Mg Tablet 200 Mg PO DAILY 07/23/15 Rx Irbesartan 75 Mg Tablet 75 Mg PO DAILY 12/18/14 Reported Lasix (Furosemide) 20 Mg Tablet 20 Mg PO BID 12/18/14 Reported Carvedilol 12.5 Mg Tablet 12.5 Mg PO BIDWMEALS 12/18/14 Reported Fluoxetine Hcl 40 Mg Capsule 40 Mg PO DAILY 12/18/14 Reported Atrovent Hfa (Ipratropium [place]) 12.9 Gm Hfa.aer.ad 2 Puff IH QID 12/18/14 Reported Impression . 1. Acute on chronic respiratory failure secondary to multifactorial etiologies including sepsis and underlying chronic obstructive pulmonary disease with exacerbation. Clinically less likely congestive heart failure, 2. Increased troponin. Suspect non-ST myocardial infarction. 3. Urinary tract infection with sepsis./ gram neg rods in blood (E-COLI) 4. Acute on chronic renal failure. 5. Hyperkalemia. 6. Mild protein calorie malnutrition. 7. Influenza is negative. Plan . 1. Continue with present oxygen. 2. Bronchodilators with DuoNeb. 3. home lasix 4. Continue broad-spectrum antibiotic. 5. PT 6. off cardizem drip per cardiology 7. Follow chest x-ray 11/20 stable 8. The patient is DNR/DNI. 9. Consider transfer back to [facility] Wednesday BRIDGETTE CORONADO MD Nov 21, 2016 14:00
[2016-11-21 15:17] VITALS: BP 123/70
--- NOTE | 2016-11-21 15:42 | PDOC ---
PROGRESS NOTES Subjective Subjective Patient feeling better today. No new complaints. Objective Objective Vital Signs Date Time Temp Pulse Resp B/P Pulse Ox O2 Delivery O2 Flow Rate FiO2 11/21/16 15:17 98.5 96 22 123/70 97 Nasal Cannula 98.5 11/21/16 15:03 5.0 Intake and Output 11/21/16 07:00 Intake Total 740 ml Output Total 1850 ml Balance -1110 ml Intake Oral 740 ml Output Urine Total 1850 ml Physical Exam Abdomen: Normal bowel sounds, Soft, No tenderness Heart: Other (irregular irregular) Extremities: No edema General: Alert, No acute distress HEENT: Atraumatic, Mucous membr. moist/pink Lungs: Clear to auscultation (BS decreased throughout) Psych/Mental Status: Other (somnolent) Assessment Assessment 1. NSTEMI peak 4.627 possibly demand ischemia in the setting of PANCHITO and UTI/sepsis continue medical management per patient/family wishes 2. Chronic systolic heart failure with ischemic cardiomyopathy improved LV EF 25-30%. Home metolazone resumed continue diuresis with monitoring of renal function ARB for optimization- d/w nephrology. Hold for hypotension 3. Acute on chronic respiratory failure with AE COPD multifactorial, per pulm 4. PAFIB Heart rate well-controlled. Continue Cardizem orally. Continue Eliquis for stroke prophylaxis 5. UTI/sepsis BC + gram neg. rods per ID 6. h/o Ventricular tachycardia: s/p AICD no acute events overnight continue Mexiletine and BB 7. CAD PCI/stents to RCA, LAD, and LCX stable. CP free. continue secondary prevention 8. HTN low-normotension 9. HLP LDL 85 10. protein malnutrition Plan Plan of Care Problems Medical Problems: (1) Acute on chronic renal failure Status: Acute (2) Atrial fibrillation with RVR Status: Acute (3) Dehydration Status: Acute (4) Healthcare-associated pneumonia Status: Acute (5) Hyperkalemia Status: Acute (6) Mild protein malnutrition Status: Acute (7) Myocardial ischemia Status: Acute (8) Sepsis Status: Acute Comment Review of Relevant I have reviewed the following items kaila (where applicable) has been applied. Labs Laboratory Tests Test 11/21/16 05:00 Sodium Level 144mmol/L (136-145) Potassium Level 3.3mmol/L (3.5-5.1) Chloride Level 103mmol/L (98-107) Carbon Dioxide Level 34mmol/L (21-32) Anion Gap 7 (6-14) Blood Urea Nitrogen 35mg/dL (7-20) Creatinine 1.2mg/dL (0.6-1.0) Estimated GFR (Cockcroft-Gault) 44.2 Glucose Level 122mg/dL (70-99) Calcium Level 8.8mg/dL (8.5-10.1) Phosphorus Level 2.4mg/dL (2.6-4.7) Magnesium Level 1.9mg/dL (1.8-2.4) Albumin 2.3g/dL (3.4-5.0) Microbiology 11/17/16 Blood Culture - Final, Complete 11/17/16 Blood Culture Result 1 (VIC) - Final, Complete 11/17/16 Urine Culture - Final, Complete 11/17/16 Urine Culture Result 1 (VIC) - Final, Complete 11/17/16 Antimicrobic Susceptibility - Final, Complete Medications Current Medications Potassium Chloride (Klor-Con) 10 meq BID PO ; Start 11/21/16 at 21:00 Vitals/I & O Vital Sign - Last 24 Hours 11/20/16 11/20/16 11/20/16 11/20/16 17:09 19:16 20:00 20:08 Temp 97.9 97.9 Pulse 96 Resp 16 B/P 106/54 Pulse Ox 96 93 96 O2 Delivery Nasal Cannula Nasal Cannula Nasal Cannula Nasal Cannula O2 Flow Rate 4.0 4.0 2.0 4.0 11/20/16 11/20/16 11/21/16 11/21/16 20:08 22:37 01:25 02:16 Temp 99.2 98.7 99.2 98.7 Pulse 83 105 Resp 18 20 B/P 130/67 141/65 Pulse Ox 96 94 97 92 O2 Delivery Nasal Cannula Nasal Cannula Nasal Cannula Nasal Cannula O2 Flow Rate 4.0 3.0 3.0 3.0 11/21/16 11/21/16 11/21/16 11/21/16 07:40 07:41 08:00 09:46 Temp 98.2 98.2 Pulse 113 113 Resp 18 B/P 142/73 142/73 Pulse Ox 93 93 O2 Delivery Nasal Cannula Nasal Cannula Nasal Cannula O2 Flow Rate 3.0 3.0 5.0 11/21/16 11/21/16 11/21/16 11/21/16 09:47 09:47 11:03 11:07 Temp 98.3 98.3 Pulse 113 113 97 Resp 24 B/P 142/73 142/73 118/71 Pulse Ox 96 O2 Delivery Nasal Cannula Nasal Cannula O2 Flow Rate 5.0 11/21/16 11/21/16 15:03 15:17 Temp 98.5 98.5 Pulse 96 Resp 22 B/P 123/70 Pulse Ox 97 O2 Delivery Nasal Cannula Nasal Cannula O2 Flow Rate 5.0 Intake and Output 11/20/16 11/20/16 11/21/16 15:00 23:00 07:00 Intake Total 540 ml 200 ml Output Total 1000 ml 850 ml Balance -460 ml -650 ml CODIE WEEKS MD Nov 21, 2016 15:42
[2016-11-21 19:15] VITALS: BP 100/60
[2016-11-21] MEDS: ZOLPIDEM 5 MG TABLET. PO PRN (22:59)
[2016-11-21 23:45] VITALS: BP 142/72
[2016-11-22 03:15] VITALS: BP 147/73
[2016-11-22] MEDS: MEROPENEM 500 MG in IV NORMAL SALINE 50ML 50 ML IV SCH ×3 (06:10→21:48)
[2016-11-22] MEDS: MEXILETINE HCL 200 MG CAPSULE PO SCH ×3 (06:10→21:44)
[2016-11-22 06:44] LABS: ALBUMIN 2.2 g/dL (3.4-5.0); GFR 54.5; PHOSPHORUS 2.8 mg/dL (2.6-4.7); POTASSIUM 3.7 mmol/L (3.5-5.1)
[2016-11-22] MEDS: IPRATRPIUM/ALBUTEROL 0.5/2.5MG 3 ML NEBU. NEB SCH ×4 (07:23→19:42)
[2016-11-22] MEDS: BUDESONIDE 0.5 MG/2 ML NEBU NEB SCH ×2 (07:23→19:42)
[2016-11-22 07:47] VITALS: BP 117/70
[2016-11-22] MEDS: METOPROLOL SUCC 24HR ER 25 MG TAB.ER.24H. PO SCH (09:00)
--- NOTE | 2016-11-22 09:48 | PDOC ---
PULMONARY PROGRESS NOTES Subjective sluggish Vitals Vital Signs Date Time Temp Pulse Resp B/P Pulse Ox O2 Delivery O2 Flow Rate FiO2 11/22/16 07:47 97.3 111 20 117/70 93 Nasal Cannula 97.3 11/22/16 07:24 5.0 General: Lethargic HEENT: Other Lungs: Other (decrease bs) Cardiovascular: S1 Abdomen: Soft Extremities: No Edema Skin: Warm Labs Laboratory Tests Test 11/21/16 05:00 11/22/16 05:45 Sodium Level 144mmol/L (136-145) 144mmol/L (136-145) Potassium Level 3.3mmol/L (3.5-5.1) 3.7mmol/L (3.5-5.1) Chloride Level 103mmol/L (98-107) 103mmol/L (98-107) Carbon Dioxide Level 34mmol/L (21-32) 37mmol/L (21-32) Anion Gap 7 (6-14) 4 (6-14) Blood Urea Nitrogen 35mg/dL (7-20) 30mg/dL (7-20) Creatinine 1.2mg/dL (0.6-1.0) 1.0mg/dL (0.6-1.0) Estimated GFR (Cockcroft-Gault) 44.2 54.5 Glucose Level 122mg/dL (70-99) 132mg/dL (70-99) Calcium Level 8.8mg/dL (8.5-10.1) 9.0mg/dL (8.5-10.1) Phosphorus Level 2.4mg/dL (2.6-4.7) 2.8mg/dL (2.6-4.7) Magnesium Level 1.9mg/dL (1.8-2.4) 1.8mg/dL (1.8-2.4) Albumin 2.3g/dL (3.4-5.0) 2.2g/dL (3.4-5.0) Laboratory Tests Test 11/22/16 05:45 Sodium Level 144mmol/L (136-145) Potassium Level 3.7mmol/L (3.5-5.1) Chloride Level 103mmol/L (98-107) Carbon Dioxide Level 37mmol/L (21-32) Anion Gap 4 (6-14) Blood Urea Nitrogen 30mg/dL (7-20) Creatinine 1.0mg/dL (0.6-1.0) Estimated GFR (Cockcroft-Gault) 54.5 Glucose Level 132mg/dL (70-99) Calcium Level 9.0mg/dL (8.5-10.1) Phosphorus Level 2.8mg/dL (2.6-4.7) Magnesium Level 1.8mg/dL (1.8-2.4) Albumin 2.2g/dL (3.4-5.0) Medications Active Scripts Medications Dose Route/Sig Days Date Category Mexiletine Hcl 200 Mg Capsule 200 Mg PO Q8HRS 11/17/16 Reported Macrobid 100 Mg Capsule (Nitrofurantoin Monohyd/M-Cryst) 100 Mg Capsule 1 Cap PO BID 07/07/16 Rx Acetaminophen 325 Mg Tablet 650 Mg PO PRN Q6HRS PRN 08/09/15 Reported [place] 10-325 Tablet (Acetaminophen/Hydrocodone Bitart) 1 Each Tablet 1 Tab PO PRN Q6HRS PRN 08/09/15 Reported Gabapentin 300 Mg Capsule 300 Mg PO BID 08/09/15 Reported Diltiazem 24HR Cd (Diltiazem Hcl) 120 Mg Cap.er.24h 120 Mg PO DAILY 08/09/15 Reported Zolpidem Tartrate 5 Mg Tablet 5 Mg PO PRN QHS PRN 08/09/15 Reported Alprazolam 0.5 Mg Tablet 0.5 Mg PO PRN Q8HRS PRN 08/09/15 Reported Advair 250-50 Diskus (Fluticasone/Salmeterol) 1 Each Disk.w.dev 1 Inh IH BID 08/09/15 Reported Capzasin-Hp (Capsaicin) 42.5 Gm Cream..g. 1 Terence TP Q8HRS 08/09/15 Reported Aspir 81 (Aspirin) 81 Mg Tablet.dr 81 Mg PO DAILY08 08/09/15 Reported Klor-Con M20 (Potassium Chloride) 20 Meq Tablet.er 20 Meq PO DAILYWBKFT 07/23/15 Rx Uloric (Febuxostat) 40 Mg Tablet 40 Mg PO DAILY 07/23/15 Rx Colace (Docusate Sodium) 100 Mg Capsule 100 Mg PO DAILY 07/23/15 Rx Eliquis (Apixaban) 5 Mg Tablet 5 Mg PO BID 07/23/15 Rx Cordarone (Amiodarone Hcl) 200 Mg Tablet 200 Mg PO DAILY 07/23/15 Rx Irbesartan 75 Mg Tablet 75 Mg PO DAILY 12/18/14 Reported Lasix (Furosemide) 20 Mg Tablet 20 Mg PO BID 12/18/14 Reported Carvedilol 12.5 Mg Tablet 12.5 Mg PO BIDWMEALS 12/18/14 Reported Fluoxetine Hcl 40 Mg Capsule 40 Mg PO DAILY 12/18/14 Reported Atrovent Hfa (Ipratropium [place]) 12.9 Gm Hfa.aer.ad 2 Puff IH QID 12/18/14 Reported Impression . 1. Acute on chronic respiratory failure secondary to multifactorial etiologies including sepsis and underlying chronic obstructive pulmonary disease with exacerbation. Clinically less likely congestive heart failure, 2. Increased troponin. Suspect non-ST myocardial infarction. 3. Urinary tract infection with sepsis./ gram neg rods in blood (E-COLI) 4. Acute on chronic renal failure. 5. Hyperkalemia. 6. Mild protein calorie malnutrition. 7. Influenza is negative. Plan . 1. Continue with present oxygen. 2. Bronchodilators with DuoNeb. 3. home lasix 4. Continue broad-spectrum antibiotic. 5. PT 6. off cardizem drip per cardiology 7. Follow chest x-ray 11/20 stable 8. The patient is DNR/DNI. 9. Consider transfer back to [facility] Wednesday BRIDGETTE CORONADO MD Nov 22, 2016 09:48
--- NOTE | 2016-11-22 10:11 | PDOC ---
Infectious Disease Note Subjective Subjective Comfortable, denies pain Wants to leave ROS ROS GEN: Denies fevers, chills, sweats HEENT: Denies blurred vision, sore throat CV: Denies chest pain RESP: Denies shortness of air, cough GI: Denies n/v/d NEURO: Denies confusion, dizziness MSK: Denies weakness, joint pain/swelling Vital Sign Vital Signs Vital Signs Date Time Temp Pulse Resp B/P Pulse Ox O2 Delivery O2 Flow Rate FiO2 11/22/16 07:47 97.3 111 20 117/70 93 Nasal Cannula 97.3 11/22/16 07:24 5.0 Physical Exam PHYSICAL EXAM GENERAL: Propped up in bed, eating, LUNGS: Faint wheezes, nonlabored HEART: S1S2 ABD: Soft, NT, BS present EXT: No edema, no cyanosis ESTHETICIAN/SPA COORDINATOR: Alert, oriented SKIN: No rash. Right heel pressure wound IV: ok Labs Lab Laboratory Tests Test 11/22/16 05:45 Sodium Level 144mmol/L (136-145) Potassium Level 3.7mmol/L (3.5-5.1) Chloride Level 103mmol/L (98-107) Carbon Dioxide Level 37mmol/L (21-32) Anion Gap 4 (6-14) Blood Urea Nitrogen 30mg/dL (7-20) Creatinine 1.0mg/dL (0.6-1.0) Estimated GFR (Cockcroft-Gault) 54.5 Glucose Level 132mg/dL (70-99) Calcium Level 9.0mg/dL (8.5-10.1) Phosphorus Level 2.8mg/dL (2.6-4.7) Magnesium Level 1.8mg/dL (1.8-2.4) Albumin 2.2g/dL (3.4-5.0) Objective Assessment Ecoli Sepsis - POA 11/17 - better. Sensitive to Zerbaxa SOA with rhonchi - BNP elevated and CXR with some mild opacity Acute Encephalopathy, better Leukocytosis - mild increase Fever- better NSTEMI Chronic heart failure Afib now on gtt PANCHITO - some better E. coli MDR UTI -POA Hyperkalemia Right heel pressure wound. Plan Plan of Care Cont Meropenem - clinically better E. coli sensitive to Zerbaxa off load heel. wound care team following Patient seen and examined. Chart reviewed. Case discussed with BEEF PUSHER. Agree with above plan LUZ CALHOUN APRN Nov 22, 2016 10:11 KINZA KNIGHT MD Nov 22, 2016 17:04
[2016-11-22] MEDS: DILTIAZEM HCL 120 MG CAP.ER.24H PO SCH (11:00)
[2016-11-22] MEDS: FUROSEMIDE 40 MG/4 ML VIAL IVP SCH (11:00)
[2016-11-22] MEDS: LOSARTAN POTASSIUM 25 MG TABLET. PO SCH (11:00)
[2016-11-22 11:03] VITALS: BP 97/59
--- NOTE | 2016-11-22 11:32 | PDOC ---
PROGRESS NOTES Subjective Subjective Patient without complaint. Objective Objective Vital Signs Date Time Temp Pulse Resp B/P Pulse Ox O2 Delivery O2 Flow Rate FiO2 11/22/16 11:03 98.5 105 20 97/59 97 BiPAP/CPAP 98.5 11/22/16 08:00 5.0 Intake and Output 11/22/16 07:00 Intake Total 860 ml Output Total 1700 ml Balance -840 ml Intake Oral 810 ml IV Total 50 ml Output Urine Total 1700 ml Physical Exam Abdomen: Normal bowel sounds, Soft, No tenderness Heart: Other (irregularly irregular) Extremities: No edema General: Alert, Oriented X3, No acute distress Lungs: Other (BS mildly decreased throughout but CTA) Assessment Assessment Problems Medical Problems: (1) Acute on chronic renal failure Status: Acute (2) Atrial fibrillation with RVR Status: Acute (3) Dehydration Status: Acute (4) Healthcare-associated pneumonia Status: Acute (5) Hyperkalemia Status: Acute (6) Mild protein malnutrition Status: Acute (7) Myocardial ischemia Status: Acute (8) Sepsis Status: Acute Plan Plan of Care 1. Sepsis with UTI - stable. Continue abx as per ID. May be ready to transfer back to [facility] tomorrow. 2. acute renal failure with CKD - much improved. K+ better with po replacement. Lab ordered for AM. 3. AE CHF - good diuresis, continue present meds. 4. acute on chronic respiratory failure with COPD - stable, Mucinex added to help with cough. 5. afib - rate controlled with present meds. On Eliquis. Comment Review of Relevant I have reviewed the following items kaila (where applicable) has been applied. Labs Laboratory Tests Test 11/21/16 05:00 11/22/16 05:45 Sodium Level 144mmol/L (136-145) 144mmol/L (136-145) Potassium Level 3.3mmol/L (3.5-5.1) 3.7mmol/L (3.5-5.1) Chloride Level 103mmol/L (98-107) 103mmol/L (98-107) Carbon Dioxide Level 34mmol/L (21-32) 37mmol/L (21-32) Anion Gap 7 (6-14) 4 (6-14) Blood Urea Nitrogen 35mg/dL (7-20) 30mg/dL (7-20) Creatinine 1.2mg/dL (0.6-1.0) 1.0mg/dL (0.6-1.0) Estimated GFR (Cockcroft-Gault) 44.2 54.5 Glucose Level 122mg/dL (70-99) 132mg/dL (70-99) Calcium Level 8.8mg/dL (8.5-10.1) 9.0mg/dL (8.5-10.1) Phosphorus Level 2.4mg/dL (2.6-4.7) 2.8mg/dL (2.6-4.7) Magnesium Level 1.9mg/dL (1.8-2.4) 1.8mg/dL (1.8-2.4) Albumin 2.3g/dL (3.4-5.0) 2.2g/dL (3.4-5.0) Laboratory Tests Test 11/22/16 05:45 Sodium Level 144mmol/L (136-145) Potassium Level 3.7mmol/L (3.5-5.1) Chloride Level 103mmol/L (98-107) Carbon Dioxide Level 37mmol/L (21-32) Anion Gap 4 (6-14) Blood Urea Nitrogen 30mg/dL (7-20) Creatinine 1.0mg/dL (0.6-1.0) Estimated GFR (Cockcroft-Gault) 54.5 Glucose Level 132mg/dL (70-99) Calcium Level 9.0mg/dL (8.5-10.1) Phosphorus Level 2.8mg/dL (2.6-4.7) Magnesium Level 1.8mg/dL (1.8-2.4) Albumin 2.2g/dL (3.4-5.0) Microbiology 11/17/16 Blood Culture - Final, Complete 11/17/16 Blood Culture Result 1 (VIC) - Final, Complete 11/17/16 Urine Culture - Final, Complete 11/17/16 Urine Culture Result 1 (VIC) - Final, Complete 11/17/16 Antimicrobic Susceptibility - Final, Complete Medications Current Medications Sodium Chloride (Iv Sodium Chloride 0.9% 1000ml Bag) 1,000 ml @ 615 mls/hr Q1H38M IV Last administered on 11/17/16 05:22; Start 11/17/16 at 05:09; Stop 11/17/16 at 09:08; Status DC Calcium Gluconate 1,000 mg 1X ONCE IVP Last administered on 11/17/16 06:55; Start 11/17/16 at 06:30; Stop 11/17/16 at 06:31; Status DC Sodium Bicarbonate 50 meq 1X ONCE IV Last administered on 11/17/16 06:56; Start 11/17/16 at 06:30; Stop 11/17/16 at 06:31; Status DC Dextrose 25 gm 1X ONCE IV Last administered on 11/17/16 06:58; Start at 06:30; Stop 11/17/16 at 06:31; Status DC Insulin Human Regular (Novolin R Vial) 10 unit 1X ONCE IV Last administered on 11/17/16 06:57; Start 11/17/16 at 06:30; Stop 11/17/16 at 06:31; Status DC Sodium Polystyrene Sulfonate (Kayexalate) 30 gm 1X ONCE PO Last administered on 11/17/16 06:58; Start 11/17/16 at 06:30; Stop 11/17/16 at 06:31; Status DC Ondansetron HCl 4 mg 4 mg PRN Q8HRS PRN IV NAUSEA/VOMITING; Start 11/17/16 at 06:15; Stop 11/18/16 at 06:14; Status DC Sodium Chloride (Iv Sodium Chloride 0.9% 1000ml Bag) 1,000 ml @ 125 mls/hr Q8H IV Last administered on 11/17/16 20:34; Start 11/17/16 at 06:12; Stop at 06:11; Status DC Acetaminophen (Tylenol) 650 mg PRN Q4HRS PRN PO FEVER; Start 11/17/16 at 06:15 ; Stop 11/17/16 at 08:35; Status DC Albuterol/ Ipratropium (Duoneb) 3 ml RTQID NEB ; Start 11/17/16 at 08:00; Stop 11/17/16 at 08:33; Status DC Vancomycin HCl (Vanco Per Pharmacy) 1 each PRN DAILY PRN MC SEE COMMENTS Last administered on 11/17/16 09:32; Start 11/17/16 at 06:15; Stop 11/17/16 at 10:38 ; Status DC Levofloxacin/ Dextrose (Levaquin Per Pharmacy) 1 each PRN DAILY PRN MC SEE COMMENTS; Start 11/17/16 at 06:15; Stop 11/17/16 at 21:00; Status DC Piperacillin Sod/ Tazobactam Sod 1 each 1 each PRN DAILY PRN MC SEE COMMENTS; Start 11/17/16 at 06:15; Stop 11/17/16 at 10:38; Status DC Vancomycin HCl 2 gm/Sodium Chloride 500 ml @ 250 mls/hr 1X ONCE IV Last administered on 11/17/16 07:52; Start 11/17/16 at 07:00; Stop 11/17/16 at 09:04 ; Status DC Piperacillin Sod/ Tazobactam Sod 2.25 gm/Sodium Chloride 50 ml @ 100 mls/hr Q6HRS IV Last administered on 11/17/16 07:04; Start 11/17/16 at 06:30; Stop at 10:38; Status DC Levofloxacin/ Dextrose (LEVAQUIN 750mg PREMIX) 150 ml @ 100 mls/hr Q48H IV ; Start 11/17/16 at 07:00; Stop 11/17/16 at 10:38; Status DC Furosemide (Lasix) 40 mg DAILY IVP Last administered on 11/21/16 09:47; Start 11/17/16 at 09:00 Albuterol/ Ipratropium (Duoneb) 3 ml RTQID NEB Last administered on 11/22/16 07:23; Start 11/17/16 at 12:00 Albuterol Sulfate (Ventolin Neb Soln) 2.5 mg PRN Q4HRS PRN NEB SHORTNESS OF BREATH Last administered on 11/21/16 22:13; Start 11/17/16 at 08:30 Acetaminophen (Tylenol) 650 mg PRN Q6HRS PRN PO MILD PAIN Last administered on 11/19/16 09:38; Start 11/17/16 at 08:30 Amiodarone HCl (Cordarone) 200 mg DAILY PO Last administered on 11/18/16 08:34 ; Start 11/17/16 at 09:00; Stop 11/18/16 at 11:49; Status DC Apixaban (Eliquis) 5 mg BID PO ; Start 11/17/16 at 09:00; Stop 11/17/16 at 15:30 ; Status DC Aspirin (Ecotrin) 81 mg DAILY08 PO Last administered on 11/21/16 09:46; Start 11/17/16 at 09:00 Carvedilol (Coreg) 12.5 mg BIDWMEALS PO ; Start 11/17/16 at 09:00; Stop at 13:48; Status DC Gabapentin (Neurontin) 300 mg BID PO Last administered on 11/21/16 21:49; Start 11/17/16 at 09:00 Zolpidem Tartrate (Ambien) 5 mg PRN QHS PRN PO INSOMNIA Last administered on 22:59; Start 11/17/16 at 08:30 Non-Formulary Medication 40 mg DAILY PO ; Start 11/17/16 at 09:00; Stop at 09:00; Status DC Non-Formulary Medication 1 inh BID IH ; Start 11/17/16 at 09:00; Stop 11/17/16 at 09:00; Status DC Fluoxetine HCl (Prozac) 40 mg DAILY PO Last administered on 11/21/16 09:46; Start 11/17/16 at 09:00 Info (Anti-Coagulation Monitoring By Pharmacy) 1 each PRN DAILY PRN MC SEE COMMENTS Last administered on 11/20/16 09:22; Start 11/17/16 at 08:45 Budesonide 0.5 mg 0.5 mg RTBID NEB Last administered on 11/22/16 07:23; Start 11/17/16 at 09:00 Vancomycin HCl/ Sodium Chloride (Iv Sodium Chloride 0.9% 250ml) 250 ml @ 167 mls/hr Q24H IV ; Start 11/18/16 at 08:00; Stop 11/18/16 at 08:00; Status DC Vancomycin HCl 1 each 1 each 1X ONCE MC ; Start 11/19/16 at 07:30; Stop at 07:30; Status DC Magnesium Sulfate/ Dextrose 50 ml @ 25 mls/hr PRN DAILY PRN IV for Mag < 1.7 on am labs; Start 11/17/16 at 09:30 Meropenem 500 mg/ Sodium Chloride 50 ml @ 100 mls/hr Q8HRS IV Last administered on 11/22/16 06:10; Start 11/17/16 at 14:00 Linezolid 300 ml @ 300 mls/hr Q12HR IV Last administered on 11/18/16 21:08; Start 11/17/16 at 21:00; Stop 11/19/16 at 07:17; Status DC Diltiazem HCl/ Dextrose (Cardizem) 125 ml @ 0 mls/hr CONT PRN IV SEE I/O RECORD Last administered on 11/18/16 10:37; Start 11/17/16 at 11:15; Stop 11/18 at 12:43; Status DC Mexiletine HCl (Mexitil) 200 mg Q8HRS PO Last administered on 11/22/16 06:10; Start 11/17/16 at 12:00 Digoxin (Lanoxin) 250 mcg 1X ONCE IV ; Start 11/17/16 at 12:30; Stop 11/17/16 at 12:36; Status DC Enoxaparin Sodium (Lovenox Per Pharmacy Treatment Dosing) 1 each PRN DAILY PRN MC SEE COMMENTS; Start 11/17/16 at 15:30; Stop 11/18/16 at 12:46; Status DC Enoxaparin Sodium (Lovenox 80mg Syringe) 80 mg DAILY SQ Last administered on 08:33; Start 11/17/16 at 14:00; Stop 11/18/16 at 12:46; Status DC Apixaban (Eliquis) 5 mg BID PO Last administered on 11/21/16 21:48; Start at 21:00 Losartan Potassium (Cozaar) 25 mg DAILY PO Last administered on 11/21/16 09:46 ; Start 11/18/16 at 14:00 Metoprolol Succinate (Toprol Xl) 25 mg DAILY PO Last administered on 11/21/16 09:47; Start 11/18/16 at 13:45 Metolazone (Zaroxolyn) 5 mg Q48H PO Last administered on 11/21/16 09:46; Start 11/19/16 at 09:00 Potassium Chloride (Klor-Con) 10 meq Q48H PO Last administered on 11/21/16 09: 46; Start 11/19/16 at 08:00; Stop 11/22/16 at 09:00; Status DC Digoxin 250 mcg 250 mcg 1X ONCE IV Last administered on 11/18/16 19:21; Start 11/18/16 at 19:15; Stop 11/18/16 at 19:16; Status DC Diltiazem HCl/ Dextrose (Cardizem) 125 ml @ 0 mls/hr CONT PRN IV SEE I/O RECORD Last administered on 11/20/16 00:08; Start 11/18/16 at 19:45; Stop 11/20 at 14:13; Status DC Diltiazem HCl (Cardizem) 5 mg 1X ONCE IVP Last administered on 11/18/16 19:57 ; Start 11/18/16 at 20:00; Stop 11/18/16 at 20:01; Status DC Potassium Chloride (Klor-Con) 20 meq 1X ONCE PO Last administered on 09:36; Start 11/19/16 at 08:45; Stop 11/19/16 at 08:46; Status DC Acetaminophen/ Hydrocodone Bitart 1 tab 1 tab PRN Q6HRS PRN PO MODERATE - SEVERE PAIN; Start 11/19/16 at 08:45 Diltiazem HCl/ Dextrose (Cardizem) 125 ml @ 0 mls/hr CONT PRN IV SEE I/O RECORD ; Start 11/19/16 at 23:45; Stop 11/20/16 at 14:13; Status DC Diltiazem HCl (Cardizem 24hr Cd) 120 mg DAILY PO Last administered on 09:47; Start 11/20/16 at 14:15 Potassium Chloride (Klor-Con) 10 meq BID PO Last administered on 11/21/16 21: 49; Start 11/21/16 at 21:00 Guaifenesin (Mucinex) 600 mg BID PO ; Start 11/22/16 at 12:00 Active Scripts Active Metolazone 5 Mg Tablet 5 Mg PO QODAY Spironolactone 25 Mg Tablet 1 Tab PO DAILY Potassium Chloride 10 Meq Capsule.er 10 Meq PO QODAY NITRO-DUR 0.4mg/hr (Nitroglycerin) 1 Each Patch.td24 1 Each TD DAILY Metoprolol Tartrate 25 Mg Tablet 1 Tab PO BID Macrobid 100 Mg Capsule (Nitrofurantoin Monohyd/M-Cryst) 100 Mg Capsule 1 Cap PO BID Colace (Docusate Sodium) 100 Mg Capsule 100 Mg PO DAILY Reported Zyprexa (Olanzapine) 5 Mg Tablet 1 Tab PO QHS Lunesta (Eszopiclone) 3 Mg Tablet 1 Tab PO QHS Lasix (Furosemide) 40 Mg Tablet 1 Tab PO DAILY Depakote Er (Divalproex Sodium) 500 Mg Tab.er.24h 500 Mg PO HS Ativan (Lorazepam) 1 Mg Tablet 1 Mg PO TID Mexiletine Hcl 200 Mg Capsule 200 Mg PO Q8HRS Acetaminophen 325 Mg Tablet 650 Mg PO PRN Q6HRS PRN [place] 10-325 Tablet (Acetaminophen/Hydrocodone Bitart) 1 Each Tablet 1 Tab PO PRN Q6HRS PRN Gabapentin 300 Mg Capsule 200 Mg PO BID Advair 250-50 Diskus (Fluticasone/Salmeterol) 1 Each Disk.w.dev 1 Inh IH BID Fluoxetine Hcl 40 Mg Capsule 20 Mg PO DAILY Atrovent Hfa (Ipratropium [place]) 12.9 Gm Hfa.aer.ad 2 Puff IH QID Vitals/I & O Vital Sign - Last 24 Hours 11/21/16 11/21/16 11/21/16 11/21/16 15:03 15:17 18:20 19:15 Temp 98.5 98.5 98.5 98.5 Pulse 96 105 Resp B/P 123/70 100/60 Pulse Ox 97 97 O2 Delivery Nasal Cannula Nasal Cannula Nasal Cannula Nasal Cannula O2 Flow Rate 5.0 5.0 5.0 11/21/16 11/21/16 11/21/16 11/22/16 20:00 22:14 23:45 03:15 Temp 98.0 98.1 98.0 98.1 Pulse 98 96 Resp 22 B/P 142/72 147/73 Pulse Ox 94 O2 Delivery Nasal Cannula Nasal Cannula Nasal Cannula Nasal Cannula O2 Flow Rate 5.0 5.0 5.0 5.0 11/22/16 11/22/16 11/22/16 11/22/16 07:24 07:47 08:00 11:03 Temp 97.3 98.5 97.3 98.5 Pulse 111 105 Resp 20 20 B/P 117/70 97/59 Pulse Ox 93 93 97 O2 Delivery Nasal Cannula Nasal Cannula Nasal Cannula BiPAP/CPAP O2 Flow Rate 5.0 5.0 Intake and Output 11/21/16 11/21/16 11/22/16 15:00 23:00 07:00 Intake Total 550 ml 310 ml Output Total 1100 ml 600 ml Balance -550 ml -290 ml PADDY ZHAO MD Nov 22, 2016 11:32
[2016-11-22] MEDS: APIXABAN 5 MG TABLET. PO SCH ×2 (11:37→21:44)
[2016-11-22] MEDS: POTASSIUM CHLORIDE 10 MEQ TABLET.ER. PO SCH ×2 (11:37→21:44)
[2016-11-22] MEDS: ASPIRIN ENTERIC COATED 81 MG TABLET.DR. PO SCH (11:37)
[2016-11-22] MEDS: GABAPENTIN 300 MG CAPSULE. PO SCH ×2 (11:37→21:45)
[2016-11-22] MEDS: FLUOXETINE HCL 20 MG CAPSULE PO SCH (11:38)
[2016-11-22] MEDS: GUAIFENESIN ER 600 MG TABLET.ER PO SCH ×2 (13:36→21:45)
[2016-11-22] MEDS: HYDROCODONE/APAP 5/325MG TABLET. PO PRN ×2 (13:37→21:46)
[2016-11-22 15:11] VITALS: BP 126/65
[2016-11-22 19:59] VITALS: BP 117/63
[2016-11-22] MEDS: ZOLPIDEM 5 MG TABLET. PO PRN (21:45)
[2016-11-22 23:27] VITALS: BP 124/83
[2016-11-23] VITALS (7 sets, daily range): BP systolic 100–135; BP diastolic 60–74
[2016-11-23] MEDS: ALBUTEROL SULFATE 2.5 MG/3 ML NEBU. NEB PRN (03:43)
[2016-11-23] MEDS: HYDROCODONE/APAP 5/325MG TABLET. PO PRN ×2 (04:09→20:03)
[2016-11-23 05:06] LABS: ALBUMIN 2.3 g/dL (3.4-5.0); CALCIUM 9.2 mg/dL (8.5-10.1); GFR 54.5; PHOSPHORUS 3.1 mg/dL (2.6-4.7); POTASSIUM 4.1 mmol/L (3.5-5.1)
[2016-11-23] MEDS: MEROPENEM 500 MG in IV NORMAL SALINE 50ML 50 ML IV SCH ×3 (06:00→17:35)
[2016-11-23] MEDS: MEXILETINE HCL 200 MG CAPSULE PO SCH ×3 (06:00→22:28)
[2016-11-23 07:56] LABS: BASO # 0.1 x10^3/uL (0.0-0.2); BASO % 0 % (0-3); EOS % 10 % (0-3); HEMATOCRIT 38.3 % (36.0-47.0); HEMOGLOBIN 11.8 g/dL (12.0-15.5); LYMPH # 1.2 x10^3/uL (1.0-4.8); LYMPH % 7 % (24-48); MEAN CORPUSCULAR HEMOGLOBIN 26 pg (25-35); MEAN CORPUSCULAR HGB CONC 31 g/dL (31-37); MEAN CORPUSCULAR VOLUME 84 fL (79-100); MONO % 7 % (0-9); NEUT % 76 % (31-73); PLATELET COUNT 340 x10^3/uL (140-400); RED BLOOD COUNT 4.56 x10^6/uL (3.50-5.40); RED CELL DISTRIBUTION WIDTH 16.2 % (11.5-14.5); WHITE BLOOD COUNT 18.9 x10^3/uL (4.0-11.0)
--- NOTE | 2016-11-23 08:08 | PDOC ---
Infectious Disease Note Subjective Subjective Comfortable, denies pain Hoping to go home ROS ROS GEN: Denies fevers, chills, sweats HEENT: Denies blurred vision, sore throat CV: Denies chest pain RESP: Denies shortness of air, cough GI: Denies n/v/d NEURO: Denies confusion, dizziness MSK: Denies weakness, joint pain/swelling Vital Sign Vital Signs Vital Signs Date Time Temp Pulse Resp B/P Pulse Ox O2 Delivery O2 Flow Rate FiO2 11/23/16 05:10 20 94 Nasal Cannula 5.0 11/23/16 03:59 98.6 121 111/67 98.6 Physical Exam PHYSICAL EXAM GENERAL: NAD, Alert HEENT: PERRL, OC/OP - clear NECK: Supple, no JVD, no LN LUNGS: Clear HEART: S1S2, no gallop, no murmur ABD: Soft, NT, no organomegaly, no rebound, ostomy EXT: No edema, no cyanosis HIGH SCHOOL MUSIC TEACHER: Alert, oriented x 3, no focal neurologic deficit SKIN: No rash IV: ok Labs Lab Laboratory Tests Test 11/23/16 03:45 Sodium Level 144mmol/L (136-145) Potassium Level 4.1mmol/L (3.5-5.1) Chloride Level 102mmol/L (98-107) Carbon Dioxide Level 37mmol/L (21-32) Anion Gap 5 (6-14) Blood Urea Nitrogen 28mg/dL (7-20) Creatinine 1.0mg/dL (0.6-1.0) Estimated GFR (Cockcroft-Gault) 54.5 Glucose Level 128mg/dL (70-99) Calcium Level 9.2mg/dL (8.5-10.1) Phosphorus Level 3.1mg/dL (2.6-4.7) Albumin 2.3g/dL (3.4-5.0) Micro Escherichia coli Greater than 100,000 colony forming units per mL ANTIMICROBIAL SUSCEPTIBILITY Final Comment S = Susceptible; I = Intermediate; R = Resistant P = Positive; N = Negative MICS are expressed in micrograms per mL Antibiotic RSLT#1 RSLT#2 RSLT#3 RSLT#4 Amoxicillin/Clavulanic Acid R>=32 Ampicillin R>=32 Cefazolin R>=64 Cefepime R<=1 Ceftriaxone R>=64 Cefuroxime R>=64 Cephalothin R>=64 Ciprofloxacin R>=4 Ertapenem S<=0.5 Gentamicin S<=1 Imipenem S<=1 Levofloxacin R>=8 Nitrofurantoin S<=16 Piperacillin R>=128 Tetracycline R>=16 Tobramycin R>=16 Trimethoprim/Sulfa R>=320 Performed at: [facility] Objective Assessment Ecoli Sepsis - POA 11/17 - better. SOA with rhonchi - better Acute Encephalopathy - improved Leukocytosis Fever- better ? NSTEMI Afib now on gtt PANCHITO - some better ECOLI MDR UTI -POA Hyperkalemia Plan Plan of Care Cont Meropenem - clinically better. Dose adjusted. Will need IV abx until at least 11/28. Could use 1 gm IV q24 of Invanz or 1 gm IV q 12 of Meropenem depending on what the facility can do CBC today to be sure it is improving E. coli sensitive to Zerbaxa off load heel. wound care team following HIPOLITO GARCIA MD Nov 23, 2016 08:08
--- NOTE | 2016-11-23 08:24 | PDOC ---
SUBJECTIVE Subjective Having a cough. Somewhat productive. Denies any significant shortness of breath. No chest pain. Eating okay. Doesn't recall bowel movement lately. OBJECTIVE Vital Signs Vital Signs Date Time Temp Pulse Resp B/P Pulse Ox O2 Delivery O2 Flow Rate FiO2 11/23/16 07:30 98.0 109 18 130/74 Nasal Cannula 6.0 98.0 11/23/16 05:10 20 94 Nasal Cannula 5.0 11/23/16 04:09 20 94 Nasal Cannula 5.0 11/23/16 03:59 98.6 121 18 111/67 94 Nasal Cannula 5.0 98.6 11/23/16 03:43 96 Nasal Cannula 5.0 11/22/16 23:27 98.6 109 18 124/83 94 Nasal Cannula 4.0 98.6 11/22/16 21:46 20 94 Nasal Cannula 4.0 11/22/16 19:59 97.7 86 18 117/63 94 Nasal Cannula 4.0 97.7 11/22/16 19:45 Nasal Cannula 5.0 11/22/16 19:44 97 Nasal Cannula 5.0 11/22/16 19:42 97 Nasal Cannula 5.0 11/22/16 16:11 97 Nasal Cannula 5.0 11/22/16 15:11 98.2 102 20 126/65 94 Nasal Cannula 98.2 11/22/16 13:37 20 Nasal Cannula 5.0 11/22/16 11:57 96 Nasal Cannula 5.0 11/22/16 11:03 98.5 105 20 97/59 97 BiPAP/CPAP 98.5 11/22/16 11:00 105 97/59 11/22/16 11:00 105 97/59 11/22/16 09:00 80 95/57 I & O Intake and Output 11/23/16 07:00 Intake Total 1280 ml Output Total 400 ml Balance 880 ml Intake Oral 1180 ml IV Total 100 ml Output Urine Total 400 ml # Voids 2 PHYSICAL EXAM Physical Exam General: No acute distress. Laying in bed. Nasal cannula oxygen on. Mental status: Alert and appears at baseline orientation Chest: Air movement: Decreased anteriorly. Auscultation: Bilateral expiratory wheeze anteriorly. Cardiovascular: Rate: Currently 110s on telemetry. Up to 140s during the night. Rhythm: Irregularly irregular. Murmur: none. Abdomen: Bowel sounds: normal. Soft. Nondistended. Tenderness: nontender to palpation. No guarding. No rebound. Extremities: No edema in the lower extremities. The right posterior heel has a bandage on it and is offloaded on a pillow. ASSESSMENT/PLAN Assessment/Plan 1. Sepsis due to UTI: Multidrug resistant Escherichia coli. Continue antibiotics per infectious disease. If necessary, could continue IV antibiotics at [facility] where she normally resides. 2. Acute respiratory failure: Improved. Probably due to sepsis. Continue per pulmonology. 2. Hyperkalemia: Resolved with Lasix. Continue per nephrology. Have started normal replacement. Continue to monitor. 3. Acute renal failure: Resolved. 4. COPD with probable exacerbation: Continue nebulizer treatments. Continue per pulmonology. Has been having more cough so we'll repeat a chest x-ray today. 5. CHF, acute on chronic systolic: Continue per cardiology. Probably ischemic cardio myopathy, multifactorial including A. fib with RVR with demand ischemia and [place]. Appears relatively compensated now 6. NSTEMI: Continue per cardiology. Medical management for now 7. Intermittent cough: Probably related to COPD. check chest x-ray as noted above. 8. A. fib with RVR: Continue per cardiology with rate control medications. She' s been having continued episodes of heart rate into the 140s there is a night and this morning. Medication adjustment per cardiology. With her increased heart rate while she is lying in bed at rest may be difficult for her to [facility] to [facility] now as she would likely end up coming right back. 9. Cardiomyopathy: Appears to be worsened on current echo with an EF of 25-30%. Continue per cardiology with maximizing medication treatment. Plan to hold off on doing catheterization at this time unless the patient deteriorates. 10. Disposition: She'll eventually need to go back to [facility]. Probably for penitentiary initially. Will defer to cardiology about possibly getting better rate control prior to transfer. Problems: COMMENT Lab Laboratory Tests Test 11/23/16 03:45 Sodium Level 144mmol/L (136-145) Potassium Level 4.1mmol/L (3.5-5.1) Chloride Level 102mmol/L (98-107) Carbon Dioxide Level 37mmol/L (21-32) Anion Gap 5 (6-14) Blood Urea Nitrogen 28mg/dL (7-20) Creatinine 1.0mg/dL (0.6-1.0) Estimated GFR (Cockcroft-Gault) 54.5 Glucose Level 128mg/dL (70-99) Calcium Level 9.2mg/dL (8.5-10.1) Phosphorus Level 3.1mg/dL (2.6-4.7) Albumin 2.3g/dL (3.4-5.0) KENDRA MANSFIELD MD Nov 23, 2016 08:24
[2016-11-23] MEDS: DILTIAZEM HCL 120 MG CAP.ER.24H PO SCH (08:27)
[2016-11-23] MEDS: FLUOXETINE HCL 20 MG CAPSULE PO SCH (08:27)
[2016-11-23] MEDS: GABAPENTIN 300 MG CAPSULE. PO SCH ×2 (08:27→20:04)
[2016-11-23] MEDS: ASPIRIN ENTERIC COATED 81 MG TABLET.DR. PO SCH (08:28)
[2016-11-23] MEDS: GUAIFENESIN ER 600 MG TABLET.ER PO SCH ×2 (08:28→20:04)
[2016-11-23] MEDS: METOLAZONE 2.5 MG TABLET PO SCH (08:28)
[2016-11-23] MEDS: POTASSIUM CHLORIDE 10 MEQ TABLET.ER. PO SCH ×2 (08:28→20:03)
[2016-11-23] MEDS: FUROSEMIDE 40 MG/4 ML VIAL IVP SCH (08:29)
[2016-11-23] MEDS: METOPROLOL SUCC 24HR ER 25 MG TAB.ER.24H. PO SCH (08:29)
[2016-11-23] MEDS: POLYETHYLENE GLYCOL 3350 17 GM PACKET. PO SCH (09:00)
[2016-11-23] MEDS: LOSARTAN POTASSIUM 25 MG TABLET. PO SCH (09:00)
[2016-11-23] MEDS: BUDESONIDE 0.5 MG/2 ML NEBU NEB SCH ×2 (09:02→19:19)
[2016-11-23] MEDS: IPRATRPIUM/ALBUTEROL 0.5/2.5MG 3 ML NEBU. NEB SCH ×4 (09:02→19:18)
[2016-11-23] MEDS: BENZONATATE 100 MG CAPSULE. PO PRN ×2 (09:16→17:33)
[2016-11-23] MEDS: ALPRAZOLAM 0.5 MG TABLET PO PRN ×2 (09:16→16:03)
[2016-11-23] MEDS: APIXABAN 5 MG TABLET. PO SCH ×2 (09:16→20:04)
[2016-11-23] MEDS: ANTI-COAG MONITOR BY PHARMACY. MC PRN (10:13)
[2016-11-23 11:03] LABS: % EOS 9 % (0-5)
[2016-11-23 11:04] LABS: PLT ESTIMATE ADEQUATE (ADEQUATE)
--- NOTE | 2016-11-23 11:52 | RAD ---
Portable chest, 11/23/2016: History: Cough Comparison is made to a study from 11/20/2016. A left-sided transvenous pacemaker remains in place with 2 leads extending in the right heart. The heart is mildly enlarged. There is calcific plaquing of the aorta. Mild streaky parahilar opacities have developed on the right. The underlying pulmonary vascularity is poorly defined. There is linear atelectasis or scarring laterally in the left base, obscured on the previous study by the overlying pacemaker generator. There is unchanged blunting of the left lateral costophrenic angle which is likely due to a prominent epicardial fat pad, although a small amount of pleural fluid cannot be excluded. IMPRESSION: 1. Cardiomegaly and aortic atherosclerosis. 2. Mild streaky right perihilar opacities have developed suggesting atelectasis and/or pneumonitis versus mild pulmonary edema.
--- NOTE | 2016-11-23 12:59 | PDOC ---
CARDIO Progress Notes Date and Time Date of Service 11/23/16 Time of Evaluation 1300 Subjective Subjective: No Chest Pain, No shortness of breath, No Palpitations, Other ( feeling "good" no complaints. wants to go home) Vitals Vitals Vital Signs Date Time Temp Pulse Resp B/P Pulse Ox O2 Delivery O2 Flow Rate FiO2 11/23/16 12:08 97 Nasal Cannula 5.0 11/23/16 11:00 97.7 97 22 100/60 97.7 Weight Weight [ ] Input and Output Intake and Output Intake and Output 11/23/16 07:00 Intake Total 1280 ml Output Total 400 ml Balance 880 ml Intake Oral 1180 ml IV Total 100 ml Output Urine Total 400 ml # Voids 2 Laboratory Labs Laboratory Tests Test 11/23/16 03:45 White Blood Count 18.9x10^3/uL (4.0-11.0) Red Blood Count 4.56x10^6/uL (3.50-5.40) Hemoglobin 11.8g/dL (12.0-15.5) Hematocrit 38.3% (36.0-47.0) Mean Corpuscular Volume 84fL (79-100) Mean Corpuscular Hemoglobin 26pg (25-35) Mean Corpuscular Hemoglobin Concent 31g/dL (31-37) Red Cell Distribution Width 16.2% (11.5-14.5) Platelet Count 340x10^3/uL (140-400) Neutrophils (%) (Auto) 76% (31-73) Lymphocytes (%) (Auto) 7% (24-48) Monocytes (%) (Auto) 7% (0-9) Eosinophils (%) (Auto) 10% (0-3) Basophils (%) (Auto) 0% (0-3) Neutrophils # (Auto) 14.3x10^3uL (1.8-7.7) Lymphocytes # (Auto) 1.2x10^3/uL (1.0-4.8) Monocytes # (Auto) 1.3x10^3/uL (0.0-1.1) Eosinophils # (Auto) 2.0x10^3/uL (0.0-0.7) Basophils # (Auto) 0.1x10^3/uL (0.0-0.2) Segmented Neutrophils % 73% (35-66) Band Neutrophils % 7% (0-9) Lymphocytes % 4% (24-48) Monocytes % 6% (0-10) Eosinophils % 9% (0-5) Myelocytes % 1% (0-0) Platelet Estimate Adequate (ADEQUATE) Sodium Level 144mmol/L (136-145) Potassium Level 4.1mmol/L (3.5-5.1) Chloride Level 102mmol/L (98-107) Carbon Dioxide Level 37mmol/L (21-32) Anion Gap 5 (6-14) Blood Urea Nitrogen 28mg/dL (7-20) Creatinine 1.0mg/dL (0.6-1.0) Estimated GFR (Cockcroft-Gault) 54.5 Glucose Level 128mg/dL (70-99) Calcium Level 9.2mg/dL (8.5-10.1) Phosphorus Level 3.1mg/dL (2.6-4.7) Albumin 2.3g/dL (3.4-5.0) Microbiology Micro Microbiology 11/17/16 Blood Culture - Final, Complete 11/17/16 Blood Culture Result 1 (VIC) - Final, Complete 11/17/16 Urine Culture - Final, Complete 11/17/16 Urine Culture Result 1 (VIC) - Final, Complete 11/17/16 Antimicrobic Susceptibility - Final, Complete Physical Exam HEENT: Neck Supple W Full Motion Chest: Symmetric LUNGS: Clear to Auscultation, Other Heart: S1S2, irregularly irregular, other (tele AFIB with controlled rate. 2/6 systolic murmur ) Abdomen: Soft N/T Extremities: 2+ Dorsalis Pedis, Other (trace bilateral hand and FA edema. No LE edema ) Neurology: alert, oriented, follow commands, other Assessment Assessment 1. NSTEMI peak 4.627 possibly demand ischemia in the setting of PANCHITO and UTI/sepsis continue medical management per patient/family wishes 2. Chronic systolic heart failure with ischemic cardiomyopathy LVEF 25-30%. compensated continue diuresis with monitoring of renal function 3. Acute on chronic respiratory failure with AE COPD multifactorial, per pulm 4. PAFIB Heart rate better controlled with addition of oral Cardizem- continue current therapy Eliquis for stroke prophylaxis 5. UTI/sepsis BC + gram neg. rods per ID 6. h/o Ventricular tachycardia: s/p AICD no acute events overnight continue Mexiletine and BB 7. CAD PCI/stents to RCA, LAD, and LCX stable. CP free. continue secondary prevention 8. HTN controlled 9. HLP LDL 85 10. protein malnutrition May discharge back to [facility] per CV perspective. ROSSI KEY APRN Nov 23, 2016 12:59
--- NOTE | 2016-11-23 13:39 | PDOC ---
PULMONARY PROGRESS NOTES Subjective wants to go home Vitals Vital Signs Date Time Temp Pulse Resp B/P Pulse Ox O2 Delivery O2 Flow Rate FiO2 11/23/16 12:08 97 Nasal Cannula 5.0 11/23/16 11:00 97.7 97 22 100/60 97.7 HEENT: Other Lungs: Other (decrease bs) Cardiovascular: S1 Abdomen: Soft Extremities: No Edema Skin: Warm Labs Laboratory Tests Test 11/22/16 05:45 11/23/16 03:45 Sodium Level 144mmol/L (136-145) 144mmol/L (136-145) Potassium Level 3.7mmol/L (3.5-5.1) 4.1mmol/L (3.5-5.1) Chloride Level 103mmol/L (98-107) 102mmol/L (98-107) Carbon Dioxide Level 37mmol/L (21-32) 37mmol/L (21-32) Anion Gap 4 (6-14) 5 (6-14) Blood Urea Nitrogen 30mg/dL (7-20) 28mg/dL (7-20) Creatinine 1.0mg/dL (0.6-1.0) 1.0mg/dL (0.6-1.0) Estimated GFR (Cockcroft-Gault) 54.5 54.5 Glucose Level 132mg/dL (70-99) 128mg/dL (70-99) Calcium Level 9.0mg/dL (8.5-10.1) 9.2mg/dL (8.5-10.1) Phosphorus Level 2.8mg/dL (2.6-4.7) 3.1mg/dL (2.6-4.7) Magnesium Level 1.8mg/dL (1.8-2.4) Albumin 2.2g/dL (3.4-5.0) 2.3g/dL (3.4-5.0) White Blood Count 18.9x10^3/uL (4.0-11.0) Red Blood Count 4.56x10^6/uL (3.50-5.40) Hemoglobin 11.8g/dL (12.0-15.5) Hematocrit 38.3% (36.0-47.0) Mean Corpuscular Volume 84fL (79-100) Mean Corpuscular Hemoglobin 26pg (25-35) Mean Corpuscular Hemoglobin Concent 31g/dL (31-37) Red Cell Distribution Width 16.2% (11.5-14.5) Platelet Count 340x10^3/uL (140-400) Neutrophils (%) (Auto) 76% (31-73) Lymphocytes (%) (Auto) 7% (24-48) Monocytes (%) (Auto) 7% (0-9) Eosinophils (%) (Auto) 10% (0-3) Basophils (%) (Auto) 0% (0-3) Neutrophils # (Auto) 14.3x10^3uL (1.8-7.7) Lymphocytes # (Auto) 1.2x10^3/uL (1.0-4.8) Monocytes # (Auto) 1.3x10^3/uL (0.0-1.1) Eosinophils # (Auto) 2.0x10^3/uL (0.0-0.7) Basophils # (Auto) 0.1x10^3/uL (0.0-0.2) Segmented Neutrophils % 73% (35-66) Band Neutrophils % 7% (0-9) Lymphocytes % 4% (24-48) Monocytes % 6% (0-10) Eosinophils % 9% (0-5) Myelocytes % 1% (0-0) Platelet Estimate Adequate (ADEQUATE) Laboratory Tests Test 11/23/16 03:45 White Blood Count 18.9x10^3/uL (4.0-11.0) Red Blood Count 4.56x10^6/uL (3.50-5.40) Hemoglobin 11.8g/dL (12.0-15.5) Hematocrit 38.3% (36.0-47.0) Mean Corpuscular Volume 84fL (79-100) Mean Corpuscular Hemoglobin 26pg (25-35) Mean Corpuscular Hemoglobin Concent 31g/dL (31-37) Red Cell Distribution Width 16.2% (11.5-14.5) Platelet Count 340x10^3/uL (140-400) Neutrophils (%) (Auto) 76% (31-73) Lymphocytes (%) (Auto) 7% (24-48) Monocytes (%) (Auto) 7% (0-9) Eosinophils (%) (Auto) 10% (0-3) Basophils (%) (Auto) 0% (0-3) Neutrophils # (Auto) 14.3x10^3uL (1.8-7.7) Lymphocytes # (Auto) 1.2x10^3/uL (1.0-4.8) Monocytes # (Auto) 1.3x10^3/uL (0.0-1.1) Eosinophils # (Auto) 2.0x10^3/uL (0.0-0.7) Basophils # (Auto) 0.1x10^3/uL (0.0-0.2) Segmented Neutrophils % 73% (35-66) Band Neutrophils % 7% (0-9) Lymphocytes % 4% (24-48) Monocytes % 6% (0-10) Eosinophils % 9% (0-5) Myelocytes % 1% (0-0) Platelet Estimate Adequate (ADEQUATE) Sodium Level 144mmol/L (136-145) Potassium Level 4.1mmol/L (3.5-5.1) Chloride Level 102mmol/L (98-107) Carbon Dioxide Level 37mmol/L (21-32) Anion Gap 5 (6-14) Blood Urea Nitrogen 28mg/dL (7-20) Creatinine 1.0mg/dL (0.6-1.0) Estimated GFR (Cockcroft-Gault) 54.5 Glucose Level 128mg/dL (70-99) Calcium Level 9.2mg/dL (8.5-10.1) Phosphorus Level 3.1mg/dL (2.6-4.7) Albumin 2.3g/dL (3.4-5.0) Medications Active Scripts Medications Dose Route/Sig Days Date Category Mexiletine Hcl 200 Mg Capsule 200 Mg PO Q8HRS 11/17/16 Reported Macrobid 100 Mg Capsule (Nitrofurantoin Monohyd/M-Cryst) 100 Mg Capsule 1 Cap PO BID 07/07/16 Rx Acetaminophen 325 Mg Tablet 650 Mg PO PRN Q6HRS PRN 08/09/15 Reported [place] 10-325 Tablet (Acetaminophen/Hydrocodone Bitart) 1 Each Tablet 1 Tab PO PRN Q6HRS PRN 08/09/15 Reported Gabapentin 300 Mg Capsule 300 Mg PO BID 08/09/15 Reported Diltiazem 24HR Cd (Diltiazem Hcl) 120 Mg Cap.er.24h 120 Mg PO DAILY 08/09/15 Reported Zolpidem Tartrate 5 Mg Tablet 5 Mg PO PRN QHS PRN 08/09/15 Reported Alprazolam 0.5 Mg Tablet 0.5 Mg PO PRN Q8HRS PRN 08/09/15 Reported Advair 250-50 Diskus (Fluticasone/Salmeterol) 1 Each Disk.w.dev 1 Inh IH BID 08/09/15 Reported Capzasin-Hp (Capsaicin) 42.5 Gm Cream..g. 1 Terence TP Q8HRS 08/09/15 Reported Aspir 81 (Aspirin) 81 Mg Tablet.dr 81 Mg PO DAILY08 08/09/15 Reported Klor-Con M20 (Potassium Chloride) 20 Meq Tablet.er 20 Meq PO DAILYWBKFT 07/23/15 Rx Uloric (Febuxostat) 40 Mg Tablet 40 Mg PO DAILY 07/23/15 Rx Colace (Docusate Sodium) 100 Mg Capsule 100 Mg PO DAILY 07/23/15 Rx Eliquis (Apixaban) 5 Mg Tablet 5 Mg PO BID 07/23/15 Rx Cordarone (Amiodarone Hcl) 200 Mg Tablet 200 Mg PO DAILY 07/23/15 Rx Irbesartan 75 Mg Tablet 75 Mg PO DAILY 12/18/14 Reported Lasix (Furosemide) 20 Mg Tablet 20 Mg PO BID 12/18/14 Reported Carvedilol 12.5 Mg Tablet 12.5 Mg PO BIDWMEALS 12/18/14 Reported Fluoxetine Hcl 40 Mg Capsule 40 Mg PO DAILY 12/18/14 Reported Atrovent Hfa (Ipratropium [place]) 12.9 Gm Hfa.aer.ad 2 Puff IH QID 12/18/14 Reported Impression . 1. Acute on chronic respiratory failure secondary to multifactorial etiologies including sepsis and underlying chronic obstructive pulmonary disease with exacerbation. Clinically less likely congestive heart failure, 2. Increased troponin. Suspect non-ST myocardial infarction. 3. Urinary tract infection with sepsis./ gram neg rods in blood (E-COLI) 4. Acute on chronic renal failure. 5. Hyperkalemia. 6. Mild protein calorie malnutrition. 7. Influenza is negative. Plan . 1. Continue with present oxygen. 2. Bronchodilators with DuoNeb. 3. home lasix 4. Continue broad-spectrum antibiotic till 11/28 per ID 5. PT 6. off cardizem drip per cardiology 7. Follow chest x-ray 11/20 stable 8. The patient is DNR/DNI. 9. Consider transfer back to [facility] when cleared by everyone/ pulmonary status stable BRIDGETTE CORONADO MD Nov 23, 2016 13:39
[2016-11-23] MEDS: ZOLPIDEM 5 MG TABLET. PO PRN (22:28)
[2016-11-24 03:10] VITALS: BP 131/93
[2016-11-24] MEDS: ALBUTEROL SULFATE 2.5 MG/3 ML NEBU. NEB PRN (03:25)
[2016-11-24] MEDS: HYDROCODONE/APAP 5/325MG TABLET. PO PRN (03:30)
[2016-11-24] MEDS: BENZONATATE 100 MG CAPSULE. PO PRN (03:30)
[2016-11-24] MEDS: ALPRAZOLAM 0.5 MG TABLET PO PRN (03:42)
[2016-11-24 04:12] LABS: BASO # 0.1 x10^3/uL (0.0-0.2); BASO % 1 % (0-3); EOS % 11 % (0-3); HEMOGLOBIN 11.7 g/dL (12.0-15.5); LYMPH # 1.4 x10^3/uL (1.0-4.8); LYMPH % 8 % (24-48); MEAN CORPUSCULAR HEMOGLOBIN 26 pg (25-35); MEAN CORPUSCULAR HGB CONC 32 g/dL (31-37); MEAN CORPUSCULAR VOLUME 83 fL (79-100); MONO % 7 % (0-9); NEUT % 73 % (31-73); PLATELET COUNT 394 x10^3/uL (140-400); RED BLOOD COUNT 4.44 x10^6/uL (3.50-5.40); RED CELL DISTRIBUTION WIDTH 16.2 % (11.5-14.5); WHITE BLOOD COUNT 16.7 x10^3/uL (4.0-11.0)
[2016-11-24 04:29] LABS: ALBUMIN 2.3 g/dL (3.4-5.0); CALCIUM 9.2 mg/dL (8.5-10.1); CREATININE 1.1 mg/dL (0.6-1.0); GFR 48.8; PHOSPHORUS 3.9 mg/dL (2.6-4.7); POTASSIUM 4.4 mmol/L (3.5-5.1)
[2016-11-24] MEDS: MEROPENEM 500 MG in IV NORMAL SALINE 50ML 50 ML IV SCH ×4 (06:17→12:03)
[2016-11-24] MEDS: MEXILETINE HCL 200 MG CAPSULE PO SCH ×2 (06:17→15:21)
[2016-11-24 07:30] VITALS: BP 104/71
[2016-11-24] MEDS: BUDESONIDE 0.5 MG/2 ML NEBU NEB SCH (07:41)
[2016-11-24] MEDS: IPRATRPIUM/ALBUTEROL 0.5/2.5MG 3 ML NEBU. NEB SCH ×3 (07:42→15:34)
[2016-11-24] MEDS: GUAIFENESIN ER 600 MG TABLET.ER PO SCH (07:59)
[2016-11-24] MEDS: GABAPENTIN 300 MG CAPSULE. PO SCH (07:59)
[2016-11-24] MEDS: APIXABAN 5 MG TABLET. PO SCH (07:59)
[2016-11-24] MEDS: ASPIRIN ENTERIC COATED 81 MG TABLET.DR. PO SCH (07:59)
[2016-11-24] MEDS: FLUOXETINE HCL 20 MG CAPSULE PO SCH (07:59)
[2016-11-24] MEDS: ACETAMINOPHEN 325 MG TABLET. PO PRN (08:08)
--- NOTE | 2016-11-24 08:34 | PDOC ---
Infectious Disease Note Subjective Subjective States she feels weak. Hard to walk with pain in feet. Wants to to back to [place] as she feels she will do better ROS ROS GEN: Denies fevers, chills, sweats HEENT: Denies blurred vision, sore throat CV: Denies chest pain RESP: Denies shortness of air, cough GI: Denies n/v/d NEURO: Denies confusion, dizziness MSK: joint pain/swelling Vital Sign Vital Signs Vital Signs Date Time Temp Pulse Resp B/P Pulse Ox O2 Delivery O2 Flow Rate FiO2 11/24/16 07:45 94 Nasal Cannula 5.0 11/24/16 07:30 97.7 96 22 104/71 97.7 Physical Exam PHYSICAL EXAM GENERAL: NAD, Alert HEENT: PERRL, OC/OP- dry NECK: Supple, no JVD, no LN LUNGS: trace rhonchi on left HEART: S1S2, no gallop, no murmur ABD: Soft, NT, no organomegaly, no rebound EXT: No edema, no cyanosis. Right heel dressed and off loaded [employer]: Alert, oriented x 3, no focal neurologic deficit SKIN: No rash IV: ok Labs Lab Laboratory Tests Test 11/24/16 03:35 White Blood Count 16.7x10^3/uL (4.0-11.0) Red Blood Count 4.44x10^6/uL (3.50-5.40) Hemoglobin 11.7g/dL (12.0-15.5) Hematocrit 37.0% (36.0-47.0) Mean Corpuscular Volume 83fL (79-100) Mean Corpuscular Hemoglobin 26pg (25-35) Mean Corpuscular Hemoglobin Concent 32g/dL (31-37) Red Cell Distribution Width 16.2% (11.5-14.5) Platelet Count 394x10^3/uL (140-400) Neutrophils (%) (Auto) 73% (31-73) Lymphocytes (%) (Auto) 8% (24-48) Monocytes (%) (Auto) 7% (0-9) Eosinophils (%) (Auto) 11% (0-3) Basophils (%) (Auto) 1% (0-3) Neutrophils # (Auto) 12.2x10^3uL (1.8-7.7) Lymphocytes # (Auto) 1.4x10^3/uL (1.0-4.8) Monocytes # (Auto) 1.2x10^3/uL (0.0-1.1) Eosinophils # (Auto) 1.8x10^3/uL (0.0-0.7) Basophils # (Auto) 0.1x10^3/uL (0.0-0.2) Sodium Level 139mmol/L (136-145) Potassium Level 4.4mmol/L (3.5-5.1) Chloride Level 98mmol/L (98-107) Carbon Dioxide Level 39mmol/L (21-32) Anion Gap 2 (6-14) Blood Urea Nitrogen 29mg/dL (7-20) Creatinine 1.1mg/dL (0.6-1.0) Estimated GFR (Cockcroft-Gault) 48.8 Glucose Level 117mg/dL (70-99) Calcium Level 9.2mg/dL (8.5-10.1) Phosphorus Level 3.9mg/dL (2.6-4.7) Magnesium Level 2.0mg/dL (1.8-2.4) Albumin 2.3g/dL (3.4-5.0) Micro Escherichia coli Greater than 100,000 colony forming units per mL ANTIMICROBIAL SUSCEPTIBILITY Final Comment S = Susceptible; I = Intermediate; R = Resistant P = Positive; N = Negative MICS are expressed in micrograms per mL Antibiotic RSLT#1 RSLT#2 RSLT#3 RSLT#4 Amoxicillin/Clavulanic Acid R>=32 Ampicillin R>=32 Cefazolin R>=64 Cefepime R<=1 Ceftriaxone R>=64 Cefuroxime R>=64 Cephalothin R>=64 Ciprofloxacin R>=4 Ertapenem S<=0.5 Gentamicin S<=1 Imipenem S<=1 Levofloxacin R>=8 Nitrofurantoin S<=16 Piperacillin R>=128 Tetracycline R>=16 Tobramycin R>=16 Trimethoprim/Sulfa R>=320 Performed at: [facility] Objective Assessment Ecoli Sepsis - POA 11/17 - better. SOA with rhonchi - better Acute Encephalopathy - improved Leukocytosis - improving Fever- better ? NSTEMI Afib now on gtt PANCHITO - some better ECOLI MDR UTI -POA Hyperkalemia Plan Plan of Care Cont Meropenem - clinically better. Dose adjusted. Will need IV abx until at least 11/28. Could use 1 gm IV q24 of Invanz or 1 gm IV q 12 of Meropenem depending on what the facility can do E. coli sensitive to Zerbaxa off load heel. wound care team following Ok to transfer from ID standpoint HIPOLITO GARCIA MD Nov 24, 2016 08:34
--- NOTE | 2016-11-24 08:48 | DISCH ---
DISCHARGE DISCHARGE DATE: Nov 24, 2016 FINAL DIAGNOSIS Problems Medical Problems: (1) Sepsis due to MDR E coli UTI Status: Acute (1) Acute on chronic renal failure Status: Acute (2) Atrial fibrillation with RVR Status: Acute (3) Dehydration Status: Acute (5) Hyperkalemia Status: Acute (6) Mild protein malnutrition Status: Acute (7) Myocardial ischemia Status: Acute CONDITION ON DISCHARGE: Stable SNF STAY <30 DAYS: Yes (PT/OT IV abx until 11/28/16 last dose) POST DISCHARGE ORDERS ACTIVITY ORDERS: Activity as tolerated WEIGHT BEARING STATUS: As tolerated DIET AFTER DISCHARGE: Cardiac WOUND/INCISION CARE: May get incision wet CHECKS AFTER DISCHARGE CHECKS AFTER DISCHARGE: Check blood press - daily, Weigh Yourself Daily FOLLOW-UP PHYSICIAN FOLLOW-UP: MDs at [facility] LAB ORDERS FOR FOLLOW-UP: BUCK on 11/27/16 TREATMENT/EQUIPMENT ORDERS ADAPTIVE EQUIPMENT NEEDED: Commode RESPIRATORY EQUIPMENT NEEDED: Oxygen KENDRA MANSFIELD MD Nov 24, 2016 08:48
[2016-11-24] MEDS: POLYETHYLENE GLYCOL 3350 17 GM PACKET. PO SCH (09:00)
[2016-11-24] MEDS ORDERED: FUROSEMIDE 40 MG TABLET PO SCH (09:00)
[2016-11-24] MEDS ORDERED: POTASSIUM CHLORIDE 10 MEQ TABLET.ER. PO SCH (09:00)
[2016-11-24] MEDS: LOSARTAN POTASSIUM 25 MG TABLET. PO SCH (09:00)
[2016-11-24] MEDS: METOPROLOL SUCC 24HR ER 25 MG TAB.ER.24H. PO SCH (09:00)
--- NOTE | 2016-11-24 09:42 | PDOC ---
Provider Note Provider Note See discharge summary dictation #[id number] KENDRA MANSFIELD MD Nov 24, 2016 09:42
--- NOTE | 2016-11-24 09:53 | PDOC ---
PULMONARY PROGRESS NOTES Subjective to resp complains Vitals Vital Signs Date Time Temp Pulse Resp B/P Pulse Ox O2 Delivery O2 Flow Rate FiO2 11/24/16 08:00 Nasal Cannula 5.0 11/24/16 07:45 94 11/24/16 07:30 97.7 96 22 104/71 97.7 HEENT: Other Lungs: Other (decrease bs) Cardiovascular: S1 Abdomen: Soft Extremities: No Edema Skin: Warm Labs Laboratory Tests Test 11/23/16 03:45 11/24/16 03:35 White Blood Count 18.9x10^3/uL (4.0-11.0) 16.7x10^3/uL (4.0-11.0) Red Blood Count 4.56x10^6/uL (3.50-5.40) 4.44x10^6/uL (3.50-5.40) Hemoglobin 11.8g/dL (12.0-15.5) 11.7g/dL (12.0-15.5) Hematocrit 38.3% (36.0-47.0) 37.0% (36.0-47.0) Mean Corpuscular Volume 84fL (79-100) 83fL (79-100) Mean Corpuscular Hemoglobin 26pg (25-35) 26pg (25-35) Mean Corpuscular Hemoglobin Concent 31g/dL (31-37) 32g/dL (31-37) Red Cell Distribution Width 16.2% (11.5-14.5) 16.2% (11.5-14.5) Platelet Count 340x10^3/uL (140-400) 394x10^3/uL (140-400) Neutrophils (%) (Auto) 76% (31-73) 73% (31-73) Lymphocytes (%) (Auto) 7% (24-48) 8% (24-48) Monocytes (%) (Auto) 7% (0-9) 7% (0-9) Eosinophils (%) (Auto) 10% (0-3) 11% (0-3) Basophils (%) (Auto) 0% (0-3) 1% (0-3) Neutrophils # (Auto) 14.3x10^3uL (1.8-7.7) 12.2x10^3uL (1.8-7.7) Lymphocytes # (Auto) 1.2x10^3/uL (1.0-4.8) 1.4x10^3/uL (1.0-4.8) Monocytes # (Auto) 1.3x10^3/uL (0.0-1.1) 1.2x10^3/uL (0.0-1.1) Eosinophils # (Auto) 2.0x10^3/uL (0.0-0.7) 1.8x10^3/uL (0.0-0.7) Basophils # (Auto) 0.1x10^3/uL (0.0-0.2) 0.1x10^3/uL (0.0-0.2) Segmented Neutrophils % 73% (35-66) Band Neutrophils % 7% (0-9) Lymphocytes % 4% (24-48) Monocytes % 6% (0-10) Eosinophils % 9% (0-5) Myelocytes % 1% (0-0) Platelet Estimate Adequate (ADEQUATE) Sodium Level 144mmol/L (136-145) 139mmol/L (136-145) Potassium Level 4.1mmol/L (3.5-5.1) 4.4mmol/L (3.5-5.1) Chloride Level 102mmol/L (98-107) 98mmol/L (98-107) Carbon Dioxide Level 37mmol/L (21-32) 39mmol/L (21-32) Anion Gap 5 (6-14) 2 (6-14) Blood Urea Nitrogen 28mg/dL (7-20) 29mg/dL (7-20) Creatinine 1.0mg/dL (0.6-1.0) 1.1mg/dL (0.6-1.0) Estimated GFR (Cockcroft-Gault) 54.5 48.8 Glucose Level 128mg/dL (70-99) 117mg/dL (70-99) Calcium Level 9.2mg/dL (8.5-10.1) 9.2mg/dL (8.5-10.1) Phosphorus Level 3.1mg/dL (2.6-4.7) 3.9mg/dL (2.6-4.7) Albumin 2.3g/dL (3.4-5.0) 2.3g/dL (3.4-5.0) Magnesium Level 2.0mg/dL (1.8-2.4) Laboratory Tests Test 11/24/16 03:35 White Blood Count 16.7x10^3/uL (4.0-11.0) Red Blood Count 4.44x10^6/uL (3.50-5.40) Hemoglobin 11.7g/dL (12.0-15.5) Hematocrit 37.0% (36.0-47.0) Mean Corpuscular Volume 83fL (79-100) Mean Corpuscular Hemoglobin 26pg (25-35) Mean Corpuscular Hemoglobin Concent 32g/dL (31-37) Red Cell Distribution Width 16.2% (11.5-14.5) Platelet Count 394x10^3/uL (140-400) Neutrophils (%) (Auto) 73% (31-73) Lymphocytes (%) (Auto) 8% (24-48) Monocytes (%) (Auto) 7% (0-9) Eosinophils (%) (Auto) 11% (0-3) Basophils (%) (Auto) 1% (0-3) Neutrophils # (Auto) 12.2x10^3uL (1.8-7.7) Lymphocytes # (Auto) 1.4x10^3/uL (1.0-4.8) Monocytes # (Auto) 1.2x10^3/uL (0.0-1.1) Eosinophils # (Auto) 1.8x10^3/uL (0.0-0.7) Basophils # (Auto) 0.1x10^3/uL (0.0-0.2) Sodium Level 139mmol/L (136-145) Potassium Level 4.4mmol/L (3.5-5.1) Chloride Level 98mmol/L (98-107) Carbon Dioxide Level 39mmol/L (21-32) Anion Gap 2 (6-14) Blood Urea Nitrogen 29mg/dL (7-20) Creatinine 1.1mg/dL (0.6-1.0) Estimated GFR (Cockcroft-Gault) 48.8 Glucose Level 117mg/dL (70-99) Calcium Level 9.2mg/dL (8.5-10.1) Phosphorus Level 3.9mg/dL (2.6-4.7) Magnesium Level 2.0mg/dL (1.8-2.4) Albumin 2.3g/dL (3.4-5.0) Medications Active Scripts Medications Dose Route/Sig Days Date Category Mexiletine Hcl 200 Mg Capsule 200 Mg PO Q8HRS 11/17/16 Reported Macrobid 100 Mg Capsule (Nitrofurantoin Monohyd/M-Cryst) 100 Mg Capsule 1 Cap PO BID 07/07/16 Rx Acetaminophen 325 Mg Tablet 650 Mg PO PRN Q6HRS PRN 08/09/15 Reported [place] 10-325 Tablet (Acetaminophen/Hydrocodone Bitart) 1 Each Tablet 1 Tab PO PRN Q6HRS PRN 08/09/15 Reported Gabapentin 300 Mg Capsule 300 Mg PO BID 08/09/15 Reported Diltiazem 24HR Cd (Diltiazem Hcl) 120 Mg Cap.er.24h 120 Mg PO DAILY 08/09/15 Reported Zolpidem Tartrate 5 Mg Tablet 5 Mg PO PRN QHS PRN 08/09/15 Reported Alprazolam 0.5 Mg Tablet 0.5 Mg PO PRN Q8HRS PRN 08/09/15 Reported Advair 250-50 Diskus (Fluticasone/Salmeterol) 1 Each Disk.w.dev 1 Inh IH BID 08/09/15 Reported Capzasin-Hp (Capsaicin) 42.5 Gm Cream..g. 1 Terence TP Q8HRS 08/09/15 Reported Aspir 81 (Aspirin) 81 Mg Tablet.dr 81 Mg PO DAILY08 08/09/15 Reported Klor-Con M20 (Potassium Chloride) 20 Meq Tablet.er 20 Meq PO DAILYWBKFT 07/23/15 Rx Uloric (Febuxostat) 40 Mg Tablet 40 Mg PO DAILY 07/23/15 Rx Colace (Docusate Sodium) 100 Mg Capsule 100 Mg PO DAILY 07/23/15 Rx Eliquis (Apixaban) 5 Mg Tablet 5 Mg PO BID 07/23/15 Rx Cordarone (Amiodarone Hcl) 200 Mg Tablet 200 Mg PO DAILY 07/23/15 Rx Irbesartan 75 Mg Tablet 75 Mg PO DAILY 12/18/14 Reported Lasix (Furosemide) 20 Mg Tablet 20 Mg PO BID 12/18/14 Reported Carvedilol 12.5 Mg Tablet 12.5 Mg PO BIDWMEALS 12/18/14 Reported Fluoxetine Hcl 40 Mg Capsule 40 Mg PO DAILY 12/18/14 Reported Atrovent Hfa (Ipratropium [place]) 12.9 Gm Hfa.aer.ad 2 Puff IH QID 12/18/14 Reported Impression . 1. Acute on chronic respiratory failure secondary to multifactorial etiologies including sepsis and underlying chronic obstructive pulmonary disease with exacerbation. Clinically less likely congestive heart failure, 2. Increased troponin. Suspect non-ST myocardial infarction. 3. Urinary tract infection with sepsis./ gram neg rods in blood (E-COLI) 4. Acute on chronic renal failure. 5. Hyperkalemia. 6. Mild protein calorie malnutrition. 7. Influenza is negative. Plan . ok to transfer resp status compensated TRISTAN ALANIZ MD Nov 24, 2016 09:52
[2016-11-24] MEDS: DILTIAZEM HCL 120 MG CAP.ER.24H PO SCH (09:58)
--- NOTE | 2016-11-24 10:47 | HP ---
ADMIT DATE: 11/24/2016 ATTENDING PHYSICIAN: Dr. David Herndon. CHIEF COMPLAINT: Shortness of breath and hypoxia. HISTORY OF PRESENT ILLNESS: The patient is a 71-year-old female who resides at [facility] that is a long-term resident. She had increasing shortness of breath over the 2 days prior to admission. At the time of her evaluation at [facility], she was doing pursed lip breathing and able to maintain her oxygen level 91-92% on her supplemental oxygen. She had had a productive cough for approximately 2 days prior to admission to no definite recorded fevers. Since she was worsening, she was sent to the Emergency Room for further evaluation. She was also somewhat confused, more so than at her baseline. PAST MEDICAL HISTORY: Significant for atrial fibrillation, anemia, anxiety, arrhythmia, coronary artery disease, congestive heart failure with systolic dysfunction, COPD, dementia, depression, hyperlipidemia, hypertension, chronic respiratory failure with hypoxia, pressure ulcers. PAST SURGICAL HISTORY: Appendectomy, pacemaker, left lower quadrant ostomy. SOCIAL HISTORY: She currently lives at [facility]. She does not use any tobacco or alcohol at present. FAMILY HISTORY: Noncontributory. MEDICATIONS: At time of admission include: 1. Tylenol 650 mg p.o. q.4h. p.r.n. 2. Albuterol nebulizer treatments q.4 hours p.r.n.. 3. Maalox p.r.n.. 4. Ativan 1 mg p.o. t.i.d. 5. Colace 100 mg p.o. daily. 6. Depakote ER 500 mg p.o. at bedtime. 7. DuoNeb q.i.d. 8. Lasix 40 mg p.o. daily. 9. Lorazepam 2 mg p.o. q.6 hours p.r.n. agitation. 10. [place] 7.5/325 one p.o. q. 6 hours p.r.n. 11. Lunesta 3 mg p.o. at bedtime. 12. Magnesium oxide 400 mg p.o. t.i.d. 13. Zaroxolyn 5 mg p.o. on Wednesday, Wednesday and Wednesday. 14. Lopressor 25 mg p.o. b.i.d. 15. Mexiletine 200 mg p.o. q.8 hours. 16. MiraLax 17 grams p.o. daily. 17. Gabapentin 200 mg p.o. b.i.d. 18. Nitroglycerin patch 0.4 mg daily. 19. Nitroglycerin sublingual 0.4 mg p.r.n. 19. Nystatin powder. 20. Pepcid 20 mg p.o. b.i.d. 21. Potassium 10 mEq p.o. daily on Wednesday, Wednesday, , Wednesday and 20 mg on Wednesday, Wednesday, Wednesday. 22. Protonix 40 mg p.o. daily. 23. Prozac 20 mg p.o. daily. 24. Robitussin-DM p.r.n. 25. Spironolactone 25 mg p.o. daily. 26. Symbicort 160/4.5 two puffs b.i.d. 27. Multivitamin 1 p.o. daily. 28. Ventolin MDI 2 puffs q.4 hours p.r.n. 29. Vitamin C 500 mg p.o. daily. 30. Zinc 220 mg p.o. daily. 31. Zyprexa 5 mg p.o. at bedtime. REVIEW OF SYSTEMS: Review of systems is limited due to the patient's confusion. VITAL SIGNS: At the time of admission, temperature 99.4, pulse 118, respiratory rate 20, blood pressure 102/67 which decreased to 91/58, O2 sat 92% on 2 liters nasal cannula. GENERAL: The patient is arousable, but she is confused. She is sometimes rambling incoherently. She will follow some simple commands. HEENT: The pupils are equal and round. The sclerae are anicteric. The oropharynx is slightly dry. NECK: Without JVD. CHEST: Decreased air movement throughout. CARDIOVASCULAR: The heart has an irregular rhythm and telemetry has shown some tachycardia. ABDOMEN: Soft. No guarding or rebound. There is an ostomy in the left lower quadrant. EXTREMITIES: ____ trace of edema bilaterally in the lower extremities. NEUROLOGIC: Unable to be tested adequately due to her confusion, but she does appear to move the extremities symmetrically. LABORATORY DATA: At the time of admission, sodium 145, potassium 6.2, chloride 104, CO2 33, BUN 42, creatinine 2.3, glucose 124, lactic acid 1.1, which increased to 1.7, total bilirubin 1.5, AST 44, ALT 117. Troponin 4.627. Albumin 3.1. Procalcitonin 14.79, WBC 23, hemoglobin 12.9, hematocrit 41.2, platelets 278 with a differential of 74 segs and 13 bands. ABG shows a pH 7.41 corrected with an FIO2 of 32% and O2 saturation of 91, bicarbonate of 50 and pCO2 of 50, pO2 of 64, bicarbonate of 31. Influenza A and B were negative. Urine culture is still pending, but had a specific gravity 1.020, 100 protein, trace ketones, moderate blood, small bilirubin, large leukocyte esterase, 1-2 rbc's, greater than 40 wbc's with moderate bacteria, occasional epithelial cells and few hyaline casts. Chest x-ray showed cardiomegaly with mild vascular congestion. EKG shows AFib with a prolonged QT interval and a rate of 130 with nonspecific intraventricular block. IMPRESSION: 1. Sepsis, possibly due to pulmonary infection versus urinary tract infection. 2. Acute respiratory failure, probably multifactorial in nature, superimposed on chronic respiratory failure. 3. Hyperkalemia. 4. Acute renal failure. 5. Chronic obstructive pulmonary disease with probable exacerbation. 6. Congestive heart failure, acute on chronic systolic failure. 7. Atrial fibrillation with rapid ventricular response. 8. Elevated troponin consistent with probable recent acute myocardial infarction. PLAN: The patient is admitted. Cardiology has been consulted. Pulmonology has been consulted. We will consult Nephrology regarding her acute renal failure and hyperkalemia. We will give a dose of Lasix and she does appear to be in some failure and see if that brings her potassium down with close monitoring of her potassium. Further treatment may include Kayexalate if needed. Infectious Disease has been consulted due to her septic appearance and history of urinary tract infections. We will adjust her medications as indicated including stopping her potassium supplements for now. We will use frequent nebulizer treatments. We will hold off on steroids at this time. ____ on Pulmonology's recommendations. KENDRA MANSFIELD MD DR: MURPHY/edelmira JOB#: [id number] / [id number]
[2016-11-24 10:53] VITALS: BP 113/68
[2016-11-24] MEDS ORDERED: ALBU2.5V5 NEB (11:34)
[2016-11-24] MEDS ORDERED: APIX5TAB PO (11:34)
[2016-11-24] MEDS ORDERED: BENZ100C2 PO (11:35)
[2016-11-24] MEDS ORDERED: ASPI81TA2 PO (11:35)
[2016-11-24] MEDS ORDERED: DILT120C97 PO (11:36)
[2016-11-24] MEDS ORDERED: FURO40TA4 PO (11:36)
[2016-11-24] MEDS ORDERED: GUAI600T38 PO (11:37)
[2016-11-24] MEDS ORDERED: LOSA25TA4 PO (11:38)
[2016-11-24] MEDS ORDERED: METO25TA9 PO (11:39)
--- NOTE | 2016-11-24 11:39 | DS ---
DATE OF DISCHARGE: 11/24/2016 ATTENDING PHYSICIAN: Dr. David Herndon. CHIEF COMPLAINT: Shortness of breath. HISTORY OF PRESENT ILLNESS: The patient is a 71-year-old female with multiple medical problems who was admitted from [facility] for worsening shortness of breath with increased oxygen need and pursed lip breathing as well as some confusion consistent with when she has had infections and illness in the past. HOSPITAL COURSE: The patient was seen in the Emergency Room where it was noted she had multiple issues going on. She appeared to be septic with an elevated white blood cell count and tachycardia, which also could be related to her atrial fibrillation with rapid ventricular response. She did have elevated troponins consistent with a non-ST elevation IA as well as worsening of her cardiomyopathy with a decrease of her systolic function to an ejection fraction of 25-30%. She did appear to be in mild heart failure. She received diuresis. She did appear to be hyperkalemic when she was admitted. She responded with the diuresis and holding her usual potassium dose. Eventually her potassium was restarted and became low. She was seen in consultation with Dr. Fuller, Nephrology, Dr. Tinsley, Cardiology, Dr. Chicas, Pulmonology and Dr. Katz, Infectious Disease. Her urine sample did eventually grow out multiple drug resistant E. coli. She had been started on broad spectrum antibiotics for that, that was present on admission and she had improvement in her symptoms. She did have adjustment of her medications including a Cardizem drip initially to control rapid ventricular rate. She is eventually transitioned to oral medications, although her dosing was somewhat limited by ____ throughout the hospital stay. She did have some improvement in her breathing, although she still required a fair amount of oxygen. Discussion was had with the son regarding the need for cardiac intervention and it was decided since she had been doing well up to this point to see how she progresses and avoid catheterization at this time possible, but if she was not making progress that could be addressed further. She was a DNR throughout the hospital stay per family request. At the time of discharge, the patient was tolerating her diet. She denied any shortness of breath. She is not having any pain. She was having output through her ostomy. She was voiding. She was feeling better overall and wanted to go back to her home with the long-term care facility. She was afebrile. Her vital signs were improved. Temperature was 97.7. Her heart rate was 96. She was still in atrial fibrillation, but her rate was better controlled. Respiratory rate was 22, her O2 sat was 94% on 5 liters, her blood pressure is 104/71. She had decreased breath sounds throughout, but were clear anteriorly. The heart had an irregular rhythm without murmur. The abdomen was soft and nontender. The ostomy site was intact. The extremities did not have any edema. LABORATORY DATA: Urine culture grew out E. coli that was multidrug resistant. DISCHARGE DIAGNOSES: 1. Sepsis due to urinary tract infection with multidrug resistant Escherichia coli. 2. Acute on chronic respiratory failure, multifactorial in nature including sepsis and probable myocardial infarction as well as atrial fibrillation with rapid ventricular response and cardiomyopathy. 3. Non ST-segment elevation myocardial infarction, present on admission. 4. Congestive heart failure, acute on chronic systolic. 5. Atrial fibrillation with rapid ventricular response. 6. Cardiomyopathy with an ejection fraction of 25-30%, which is decreased from the last echocardiogram. 7. Hyperkalemia, resolved. 8. Acute renal failure, resolved. 9. Chronic obstructive pulmonary disease with exacerbation. DISCHARGE DIET: Cardiac diet. DISCHARGE ACTIVITY: As tolerated. She will receive physical therapy and occupational therapy. FOLLOWUP: The patient will be followed with the physicians at [facility]. DISCHARGE MEDICATIONS AT THE TIME OF DISCHARGE: Include, 1. Tylenol 650 mg p.o. q.6 hours p.r.n. 2. Albuterol nebulizer treatments q.4 hours p.r.n. 3. Eliquis 5 mg p.o. b.i.d. 4. Aspirin 81 mg p.o. daily. 5. Tessalon Perles 100 mg p.o. t.i.d. p.r.n. 6. Cardizem-CD 120 mg p.o. daily. 7. Prozac 20 mg p.o. daily. 8. Lasix 40 mg p.o. daily. 9. Gabapentin 200 mg p.o. b.i.d. 10. Mucinex 600 mg p.o. b.i.d. p.r.n. for 7 days. 11. [place] 10/325 one p.o. q. 6 hours p.r.n. #30 written for. 12. DuoNeb q.i.d. 13. Losartan 25 mg p.o. daily. 14. Zaroxolyn 5 mg p.o. every other day. 15. Toprol-XL 25 mg p.o. daily. 16. Mexiletine 200 mg p.o. q.8 hours. 17. MiraLax 17 grams p.o. daily. 18. Potassium chloride 10 mEq p.o. daily. 19. Depakote ER 500 mg p.o. at bedtime. 20. Colace 100 mg p.o. daily. 21. Lunesta 3 mg p.o. at bedtime. 22. Lorazepam 1 mg p.o. t.i.d. p.r.n. 23. Zyprexa 5 mg p.o. at bedtime. 24. Capsaicin topically q. 8 hours p.r.n. 25. Nitroglycerin 0.4 mg sublingual q. 5 minutes p.r.n. chest pain up to 3 doses. 26. Pepcid 20 mg p.o. b.i.d. 27. Symbicort 160/4.5 two puffs b.i.d. 28. Invanz 1 g IV q. 24 hours starting today with the last dose on 11/28/2016. MD MONIE CHAUHAN/edelmira JOB#: [id number] / [id number]
[2016-11-24 15:29] VITALS: BP 103/67
[2016-11-24] MEDS: ANTI-COAG MONITOR BY PHARMACY. MC PRN (15:30)
== END 2016-11-24 17:00 | DRG 871 ==
LOC: ER 04:44 → 1 WEST ICU 05:54 → 2 SOUTH 11-19 19:08
PROVIDERS: ADMIT Family Medicine; ATTEND Family Medicine
DX: A41.51 Sepsis due to Escherichia coli [E. coli] (principal); G93.40 Encephalopathy, unspecified; I21.4 Non-ST elevation (NSTEMI) myocardial infarction; I50.23 Acute on chronic systolic (congestive) heart failure; J18.9 Pneumonia, unspecified organism; J96.21 Acute and chronic respiratory failure with hypoxia; N17.0 Acute kidney failure with tubular necrosis; E44.1 Mild protein-calorie malnutrition; I13.0 Hypertensive heart and chronic kidney disease with heart failure and stage 1 through stage 4 chronic kidney disease, or unspecified chronic kidney disease; J44.0 Chronic obstructive pulmonary disease with (acute) lower respiratory infection; J44.1 Chronic obstructive pulmonary disease with (acute) exacerbation; N39.0 Urinary tract infection, site not specified; Z66 Do not resuscitate; E11.22 Type 2 diabetes mellitus with diabetic chronic kidney disease; E78.00 Pure hypercholesterolemia, unspecified; E78.5 Hyperlipidemia, unspecified; E87.5 Hyperkalemia; F03.90 Unspecified dementia, unspecified severity, without behavioral disturbance, psychotic disturbance, mood disturbance, and anxiety; I25.10 Atherosclerotic heart disease of native coronary artery without angina pectoris; I25.5 Ischemic cardiomyopathy; I48.0 Paroxysmal atrial fibrillation; N18.3 Chronic kidney disease, stage 3 (moderate); L89.619 Pressure ulcer of right heel, unspecified stage; R31.29 Other microscopic hematuria; Y95 Nosocomial condition; Z16.24 Resistance to multiple antibiotics; F32.9 Major depressive disorder, single episode, unspecified; M54.9 Dorsalgia, unspecified; F41.9 Anxiety disorder, unspecified; M19.90 Unspecified osteoarthritis, unspecified site; Z82.49 Family history of ischemic heart disease and other diseases of the circulatory system; Z68.26 Body mass index [BMI] 26.0-26.9, adult; I25.2 Old myocardial infarction; Z86.73 Personal history of transient ischemic attack (TIA), and cerebral infarction without residual deficits; Z86.79 Personal history of other diseases of the circulatory system; Z87.440 Personal history of urinary (tract) infections; Z90.49 Acquired absence of other specified parts of digestive tract; Z95.5 Presence of coronary angioplasty implant and graft; Z95.810 Presence of automatic (implantable) cardiac defibrillator; Z88.8 Allergy status to other drugs, medicaments and biological substances
CPT/HCPCS: 36415; 36600; 71010; 76770; 80053; 80061; 80069; 80076; 81001; 82805; 83605; 83735; 83880; 84100; 84145; 84484; 85007; 85027; 87040; 87086; 87186; 87205; 87641; 87804; 93005; 93306; 94250; 94640; 94760; 96361; 96365; 96375; J0610; J1160; J1650; J1815; J1940; J2020; J2185; J2543; J3370; J3490; J7030; J7040; J7042; J7620; 92610; 97530; 97535; 99285-25

== ENCOUNTER → 2016-12-10 | Outpatient (CLI) | payer MEDICARE, OTHER ==
[~2016-12-10] VITALS: Ht 167.6 cm; Wt 74.8 kg
[2016-12-10] VITALS (8 sets, daily range): BP systolic 92–108; BP diastolic 48–69
[~2016-12-10] MED LIST changes: +ALBU2.5V5 NEB; +ASPI81TA2 PO; +BENZ100C2 PO; +DIVA500T4 PO; +ESZO3TAB9 PO; +FURO-68 PO; +FURO40TA4 PO; +FUROSEMIDE 40 MG/4 ML VIAL IVP ONE; +GUAI600T38 PO; +LORA-434 PO; +LOSA25TA4 PO; +METO25TA4 PO; +METO25TA9 PO; +METO5TAB4 PO; +MEXI200C PO; +NITR1PAT9 TD; +OLAN5TAB3 PO; +POTA10CA PO; +SPIR25TA3 PO; -ZOLP5TAB4 PO; +ZOLP5TAB5 PO
[2016-12-10 12:00] LABS: HEMATOCRIT 20.1 % (36.0-47.0); HEMOGLOBIN 6.3 g/dL (12.0-15.5)
== END | disposition home or self-care (01) ==
LOC: OPS 11:17
PROVIDERS: ATTEND Family Medicine
DX: I48.91 Unspecified atrial fibrillation (principal); I10 Essential (primary) hypertension; I50.9 Heart failure, unspecified; J44.9 Chronic obstructive pulmonary disease, unspecified; Z79.899 Other long term (current) drug therapy
CPT/HCPCS: 36415; 36430; 85014; 85018; 86850; 86900; 86901; 86920; 96374; J1940; P9016

== ENCOUNTER → 2016-12-18 | Outpatient (CLI) | payer MEDICARE, OTHER ==
[2016-12-10 17:17] VITALS: BP 108/62
[~2016-12-18] MED LIST changes: -FUROSEMIDE 40 MG/4 ML VIAL IVP ONE
[2016-12-18 07:25] LABS: BASO % 0 % (0-3); EOS % 5 % (0-3); HEMATOCRIT 25.6 % (36.0-47.0); LYMPH # 1.5 x10^3/uL (1.0-4.8); LYMPH % 15 % (24-48); MEAN CORPUSCULAR HEMOGLOBIN 28 pg (25-35); MEAN CORPUSCULAR HGB CONC 32 g/dL (31-37); MEAN CORPUSCULAR VOLUME 88 fL (79-100); MONO % 11 % (0-9); NEUT % 69 % (31-73); PLATELET COUNT 322 x10^3/uL (140-400); RED BLOOD COUNT 2.91 x10^6/uL (3.50-5.40); RED CELL DISTRIBUTION WIDTH 17.6 % (11.5-14.5); WHITE BLOOD COUNT 10.3 x10^3/uL (4.0-11.0)
== END | disposition home or self-care (01) ==
LOC: SPEC 06:54
PROVIDERS: ATTEND Family Medicine
DX: I50.9 Heart failure, unspecified (principal); F31.10 Bipolar disorder, current episode manic without psychotic features, unspecified
CPT/HCPCS: 36415; 80164; 85027